=== PATIENT | male | born 1955 | race Caucasian/White ===

== ENCOUNTER 2022-01-13 14:34 | Inpatient (IN) | payer MEDICARE, SELFPAY ==
[2022-01-13] VITALS (28 sets, daily range): BP systolic 66–130; BP diastolic 49–99; PULSE 97–109; RESP 16–27; TEMP 36.4–37.2; O2SAT 93–96; BMI 27.3
--- NOTE | 2022-01-13 14:39 | XRR_ITS ---
PROCEDURE INFORMATION: Exam: XR Chest Exam date and time: 01/13/2022 2:39 PM Age: 66 years old Clinical indication: Cough and dyspnea; Additional info: Dyspnea/cough TECHNIQUE: Imaging protocol: XR of the chest. Views: 1 view. COMPARISON: CR Chest 2 views* [id number] 01/01/2019 3:10 PM FINDINGS: Tubes, catheters and devices: Endotracheal tube tip in place 2.8 cm above the josseline. Right central venous catheter tip over the right atrium. Enteric tube tip below the left diaphragm over the gastric bubble. Lungs: Left lower lobe infiltrate. Pleural spaces: Unremarkable. No pleural effusion. No pneumothorax. Heart/Mediastinum: Cardiomegaly. Bones/joints: Unremarkable. Other findings: Several metallic fragments again seen over the right thorax. XR/XR chest 1V portable [id number] IMPRESSION: 1. Endotracheal tube tip in place 2.8 cm above the josseline. 2. Right central venous catheter tip over the right atrium. 3. Enteric tube tip below the left diaphragm over the gastric bubble. 4. Left lower lobe infiltrate. 5. Cardiomegaly. 6. Several metallic fragments again seen over the right thorax.
--- NOTE | 2022-01-13 14:48 | ED_ITS ---
HPI - SOB/Dyspnea General: Chief Complaint: Shortness of Breath/Dyspnea Stated Complaint: COUGH/ DIFFICULTY BREATHING Time Seen by Provider: 01/13/22 14:35 Source: patient Mode of arrival: EMS Limitations: no limitations History of Present Illness: HPI Narrative: 58-year-old male presents emergency room acutely short of breath. He arrives via EMS they report his oxygen sats were 70% on room air at home. He states he woke up yesterday feeling short breath got progressively worse until this afternoon got so severe his family called EMS. He denies any chest pain he denies any productive cough. Cough and getting progressive progressively worse he is diaphoretic on arrival here and tachypneic. He has had some myalgias. No history of DVT or PE. No history of coronary artery disease. MD elicited complaint: shortness of breath and cough Pertinent past history: COPD Onset (ago): day(s) (2) Timing: constant Severity: severe Exacerbating factors: exertion, coughing and talking Relieving factors: oxygen and rest Known history of: COPD Associated symptoms: Reports chest congestion and cough; Deny abdominal pain, chest pain, diaphoresis, dizziness, extremity pain, fever(s), hemoptysis, lightheadedness, myalgias, nausea, orthopnea, palpitations, paresthesias, polydipsia, polyuria, rash, sense of impending doom, syncope or vomiting Treatment prior to arrival: oxygen and bronchodilator Review of Systems Const: Denies: fever(s) or diaphoresis ENMT: Denies: throat pain, ear or mastoid pain, nasal discharge or nasal congestion Card: Denies: chest pain, palpitations, lightheadedness, syncope or orthopnea Resp: Reports: chest congestion; Denies: hemoptysis GI: Denies: abdominal pain, nausea or vomiting : Denies: flank pain, dysuria, urinary frequency or urinary urgency Musc: Denies: extremity pain Skin/Breast: Denies: rash or pruritus Neuro: Denies: dizziness Endo: Denies: polyuria or polydipsia PFS ED PFSH: Medical History (Updated 01/18/22 @ 10:38 by Tushar Guillaume DO) Chronic kidney disease COPD (chronic obstructive pulmonary disease) Social History (Updated 01/18/22 @ 10:33 by Tushar Guillaume DO) Smoking and tobacco status: current every day smoker Alcohol intake: unknown Physical Exam Const: COMMON NORMALS: no acute distress GENERAL APPEARANCE: cooperative and comfortable ORIENTATION/CONSCIOUSNESS: Yes awake, Yes oriented to person, Yes oriented to place and Yes oriented to time HENMT: COMMON NORMALS: normocephalic, atraumatic and hearing grossly normal bilaterally HEAD & SCALP: normocephalic and atraumatic Neck/C-Spine: COMMON NORMALS: no JVD Resp: EFFORT & INSPECTION: Yes able to speak in complete sentences, Yes tachypneic, Yes respiratory distress, Yes labored and Yes uses accessory muscles AUSCULTATION: rales and rhonchi Cardio: COMMON NORMALS: no JVD, regular rhythm and No murmurs present (Cardio) RATE: tachycardic RHYTHM: regular rhythm GI: COMMON NORMALS: Soft to palpation and No hepatosplenomegaly present AUSCULTATION: Yes normoactive bowel sounds PALPATION: Yes Soft to palpation, No Tenderness to palpation present (GI), No Guarding due to palpation present (GI) and Yes No hepatosplenomegaly present Extremity: COMMON NORMALS: no calf tenderness and no pedal edema Neuro: SENSORIUM/ORIENTATION: Yes oriented to person, Yes oriented to place and Yes oriented to time Skin: COMMON NORMALS: no rashes or lesions noted GENERAL SKIN EXAM: no rashes or lesions noted Procedures Intubation Time out performed: Yes sedative: Etomidate paralytic: Succinylcholine Laryngoscope: fiber optic video scope Assist Device Used: fiber optic device ET Tube Size: 8.5 ET Tube Uncuffed: No Tube Secured Depth (cm): 22 Tube Secured Location: teeth Tube Placement Confirmation: visualized tube passing through cords, equal breath sounds bilaterally, no breath sounds over epigastrium and confirmation by capnometry Patient Tolerated Procedure: well Intubation Complications: none Course Vital Signs: Vital signs: Vital Signs Temperature 98.8 F 01/18/22 07:00 Pulse Rate 79 01/18/22 09:00 Respiratory Rate 18 01/18/22 09:30 Blood Pressure 99/64 01/18/22 09:00 Pulse Oximetry 96 01/18/22 09:30 MDM - SOB/Dyspnea Medical Decision Making Additional procedure: Nursing staff attempted to place OG tube and encountered difficulty. On chest x-ray it appears to have passed into the trachea. This was confirmed by fiberoptic laryngoscopy the tube was removed and then placed in the esophagus with the assistance of the laryngoscope without difficulty confirmed on x-ray Acute on chronic respiratory failure with acute on chronic kidney disease. Flores ent appears to have pneumonia started on empiric antibiotics. IV access difficult. Patient is being admitted have discussed with Dr. Florence he will place a central line himself. See his notes. Medical Records I reviewed the patient's medical records. Lab Data I reviewed the patient's lab results. : 01/18/22 04:17 01/18/22 04:17 Labs/Radiology: Radiology Impressions Abdomen X-Ray 01/14/22 08:23 IMPRESSION: Moderate colon distention with stool and gas. No small bowel distention. Venous Duplex 01/15/22 07:55 IMPRESSION: No evidence of deep vein thrombosis. Chest X-Ray 01/17/22 09:38 IMPRESSION: 1. Termination of feeding tube in the proximal stomach. Endotracheal tube terminates 2.0 cm above the josseline. Termination of central venous catheter in the right atrium. 2. Hypoinflation with asymmetric airspace disease and pleural effusions. Laboratory Results WBC 27.2 10^3/uL (4.0-10.0) H 01/13/22 14:39 RBC 4.87 10^6/uL (4.1-5.3) 01/13/22 14:39 Hgb 13.8 g/dL (11.7-16.6) 01/13/22 14:39 Hct 44.3 % (42.0-52.0) 01/13/22 14:39 MCV 91.0 fl (80-94) 01/13/22 14:39 MCH 28.3 pg (28.0-34.0) 01/13/22 14:39 MCHC 31.2 g/dL (30.0-36.0) 01/13/22 14:39 RDW 14.7 % (12.1-15.1) 01/13/22 14:39 Plt Count 417 10^3/cmm (130-400) H 01/13/22 14:39 MPV 9.4 fL (7.4-10.4) 01/13/22 14:39 Lymph % (Auto) Not Reportable 01/13/22 14:39 [place] % (Auto) Not Reportable 01/13/22 14:39 Lymph # (Auto) Not Reportable 01/13/22 14:39 [place] # (Auto) Not Reportable 01/13/22 14:39 Total Counted 100 (0-100) 01/13/22 14:39 Atypical Lymphs % 1.0 % (0-5) 01/13/22 14:39 Absolute Neutrophils 15.0 10^3/cmm (1.4-6.5) H 01/13/22 14:39 Segmented Neutrophils 27 % 01/13/22 14:39 Abs Segm Neuts (Man) 7.3 10/cmm (1.6-7.1) H 01/13/22 14:39 Band Neutrophils 28.0 % 01/13/22 14:39 Abs Band Neuts (Man) 7.6 10^3/cmm (0.0-1.2) H 01/13/22 14:39 Absolute Lymphocytes 1.4 10^3/cmm (1.2-3.4) 01/13/22 14:39 Lymphocytes (Manual) 4 % 01/13/22 14:39 Monocytes (Manual) 3.0 % 01/13/22 14:39 Absolute Monocytes 0.8 10^3/cmm (0.1-0.6) H 01/13/22 14:39 Eosinophils (Manual) 0 % 01/13/22 14:39 Absolute Eosinophils 0.0 10^3/cmm (0.0-0.7) 01/13/22 14:39 Basophils (Manual) 0.0 % 01/13/22 14:39 Absolute Basophils 0.0 10^3/cmm (0.0-0.2) 01/13/22 14:39 Metamyelocytes 37.0 % 01/13/22 14:39 Platelet Estimate Normal (Normal) 01/13/22 14:39 D-Dimer 1.06 ug/mIFEU (0-0.59) H 01/13/22 14:39 Specimen Type Arterial 01/13/22 14:43 Sample Site Radial, right 01/13/22 14:43 ABG pH 7.26 (7.35-7.45) L 01/13/22 14:43 ABG pCO2 51.1 mmHg (35-45) H 01/13/22 14:43 ABG pO2 76.4 mmHg (80.0-100.0) L 01/13/22 14:43 ABG HCO3 22.7 mmol/L (22-26) 01/13/22 14:43 ABG O2 Saturation 94.9 01/13/22 14:43 ABG Base Excess -4.8 mmol/L (-2.0-2.0) L 01/13/22 14:43 Kayden Test Pos 01/13/22 14:43 A-a O2 Gradient 1.3 mmHg (5-10) L 01/13/22 14:43 Hematocrit 43.3 % (42-52) 01/13/22 14:43 Hgb O2 Saturation 92.3 % (95-100) L 01/13/22 14:43 Carboxyhemoglobin 1.9 %THgb (0.4-20.1) 01/13/22 14:43 Methemoglobin 0.8 % (0.4-1.5) 01/13/22 14:43 Total Hemoglobin 14.1 g/dL (14-18) 01/13/22 14:43 Sodium 135.0 mmol/L (131-143) 01/13/22 14:43 Potassium 4.7 mmol/L (3.5-5.0) 01/13/22 14:43 Glucose 149.0 mg/dL (70-115) H 01/13/22 14:43 Ionized Calcium 1.1 mmol/L (1.1-1.4) 01/13/22 14:43 O2 Delivery Device Nrb 01/13/22 14:43 O2 Liters/Min 15.0 % 01/13/22 14:43 Junior Technical Writer ID Amh 01/13/22 14:43 Sodium 134 mmol/L (136-145) L 01/13/22 14:39 Potassium 4.6 mmol/L (3.5-5.1) 01/13/22 14:39 Chloride 95 mmol/L (98-107) L 01/13/22 14:39 Carbon Dioxide 22 mmol/L (22-29) 01/13/22 14:39 Anion Gap 21.6 (5-19) H 01/13/22 14:39 BUN 37 mg/dL (8-23) H 01/13/22 14:39 Creatinine 3.5 mg/dL (0.7-1.2) H 01/13/22 14:39 GFR Calculation 17.5 mL/min (90-130) L 01/13/22 14:39 Glucose 158 mg/dL (65-115) H 01/13/22 14:39 Calculated Osmolality 290 mOsm/kg (285-295) 01/13/22 14:39 Lactic Acid 3.8 mmol/L (0.5-2.2) H 01/13/22 14:39 Calcium 8.7 mg/dL (8.5-10.5) 01/13/22 14:39 Total Bilirubin 0.9 mg/dL (0.15-1.2) 01/13/22 14:39 AST 14 U/L (0-40) 01/13/22 14:39 ALT 20 U/L (0-41) 01/13/22 14:39 Alkaline Phosphatase 64 IU/L (40-130) 01/13/22 14:39 Creatine Kinase 41 U/L (39-308) 01/13/22 14:39 Troponin T Baseline 19 ng/L (0-15) H 01/13/22 14:39 C-Reactive Protein 3.0 mg/L (0.0-4.9) 01/13/22 14:39 NT-Pro-B Natriuret Pep 3037 pg/mL (0-125) H 01/13/22 14:39 Total Protein 7.3 g/dL (6.6-8.7) 01/13/22 14:39 Albumin 3.7 g/dL (3.5-5.2) 01/13/22 14:39 Globulin 3.6 g/dL (1.3-4.6) 01/13/22 14:39 Procalcitonin 39.25 ng/mL (0-0.5) H 01/13/22 14:39 Coronavirus 229E (PCR) Not detected (NOT DETECT) 01/13/22 15:05 SARS-CoV-2 (PCR) Not detected (NOT DETECT) 01/13/22 15:05 Critical Care Time Critical Care Time: Critical Care Time: Yes Total Critical Care Time: 45 Attestation: The high probability of a clinically significant, sudden or life threatening deterioration of the patient's respiratory system(s) required my full and direct attention, intervention and personal management. The critical care time is as shown. This time is in addition to time spent performing any reported procedures but includes the following: [x] Data and vital sign review and interpretation [x] Patient assessment, examination and intervention [x] Documentation [x] Medication orders and management Discharge Plan Discharge Patient Disposition: Admitted As Inpatient Admit Provider: Danielito Florence Clinical Impression: Pneumonia, Respiratory failure with hypoxia, Acute kidney injury superimposed on CKD, Sepsis Condition: Stable Coding Level of Care Code ED Contract Admin for Sarah Davidson
[2022-01-13 14:54] LABS: ABG PCO2 51.1 mmHg (35-45); ABG PH Result 7.26 (7.35-7.45); Alveolar-Arterial Oxygen Gradi 1.3 mmHg (5-10); Arterial Blood Gas Hematocrit 43.3 % (42-52); Base Excess ABG -4.8 mmol/L (-2.0-2.0); Blood Gas Allen Test Pos; Blood Gas Operator Identificat AMH; Blood Gas Sample Site Radial, right; Blood Gas Sample Type Arterial; Carboxyhemoglobin 1.9 %THgb (0.4-20.1); HCO3 ABG 22.7 mmol/L (22-26); HGB O2 Sat 92.3 % (95-100); Ionized Calcium Level - ABG 1.1 mmol/L (1.1-1.4); Methemoglobin 0.8 % (0.4-1.5); Oxygen Device NRB; Oxygen Saturation ABG 94.9; PO2 ABG 76.4 mmHg (80.0-100.0); Potassium Level - ABG 4.7 mmol/L (3.5-5.0); Total Hemoglobin 14.1 g/dL (14-18)
[2022-01-13 14:55] LABS: Hematocrit 44.3 % (42.0-52.0); Hemoglobin 13.8 g/dL (11.7-16.6); Mean Corpuscular HGB Conc 31.2 g/dL (30.0-36.0); Mean Corpuscular Hemoglobin 28.3 pg (28.0-34.0); Mean Platelet Volume 9.4 fL (7.4-10.4); Platelet Count 417 10^3/cmm (130-400); Red Blood Count 4.87 10^6/uL (4.1-5.3); Red Cell Distribution Width 14.7 % (12.1-15.1); White Blood Count 27.2 10^3/uL (4.0-10.0)
[2022-01-13] MEDS: succinylcholine 20 mg/mL SDV 10mL 120 MG IVP (15:15)
[2022-01-13 15:16] LABS: D Dimer 1.06 ug/mIFEU (0-0.59)
[2022-01-13 15:20] LABS: Lactic Sepsis W/Reflex 3.8 mmol/L (0.5-2.2)
[2022-01-13] MEDS: propofol 1,000 MG/100 ML INJ 19.6 MG IV (15:20)
[2022-01-13 15:22] LABS: Troponin(5th) Baseline 19 ng/L (0-15)
[2022-01-13 15:32] LABS: NT Pro B Type Natriuretic Pept 3037 pg/mL (0-125); Procalcitonin 39.25 ng/mL (0-0.5)
[2022-01-13 15:43] LABS: Alanine Aminotransferase 20 U/L (0-41); Albumin Level 3.7 g/dL (3.5-5.2); Alkaline Phosphatase 64 IU/L (40-130); Anion Gap 21.6 (5-19); Aspartate Amino Transferase 14 U/L (0-40); Blood Urea Nitrogen 37 mg/dL (8-23); Calcium 8.7 mg/dL (8.5-10.5); Carbon Dioxide 22 mmol/L (22-29); Chloride 95 mmol/L (98-107); Creatine Phosphokinase 41 U/L (39-308); Globulin 3.6 g/dL (1.3-4.6); Glomerular Filtration Rate 17.5 mL/min (90-130); Glucose 158 mg/dL (65-115); Osmolality Calculated 290 mOsm/kg (285-295); Potassium 4.6 mmol/L (3.5-5.1); Sodium 134 mmol/L (136-145); Total Bilirubin 0.9 mg/dL (0.15-1.2); Total Protein 7.3 g/dL (6.6-8.7)
[2022-01-13] MEDS: vecuronium 10 mg SDV IVP (15:50)
--- NOTE | 2022-01-13 15:58 | PC.PHAR ---
PT UNABLE TO VERIFY MEDICATIONS DUE TO BEING INTUBATED-PTS RYLIE VINSON STATES THE PT TAKES NO RX MEDICATIONS STATES SHE SOMETIMES GIVES THE PT SOME OF HER [place] 7.5/325MG TABLETS-STATES SHE GAVE HIM ONE TAB THIS AM-
[2022-01-13 16:01] LABS: Slide Review Slide Review Perform
[2022-01-13 16:02] LABS: Absolute Segmented Neutrophil 7.3 10/cmm (1.6-7.1); Band Neutrophils Absolute 7.6 10^3/cmm (0.0-1.2); Eosinophils 0 %; Lymphocytes 4 %; Lymphocytes Absolute 1.4 10^3/cmm (1.2-3.4); Monocytes Absolute 0.8 10^3/cmm (0.1-0.6); Segmented Neutrophils 27 %; Total Cells Counted 100 (0-100)
[2022-01-13 16:03] LABS: Platelet Estimate Normal (Normal)
[2022-01-13 16:34] LABS: Reflex Lactate Order REFLEX LACTIC ORDERD
--- NOTE | 2022-01-13 16:40 | ECG_ITS ---
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 Measurements Intervals [place] Rate: 100 P: 19 DE: 144 QRS: 34 QRSD: 93 T: 33 QT: 345 QTc: 446 Interpretive Statements SINUS TACHYCARDIA LOW QRS VOLTAGE IN PRECORDIAL LEADS [QRS DEFLECTION < 1.0 mV IN CHEST LEADS] POSSIBLE RIGHT VENTRICULAR CONDUCTION DELAY [RSR (QR) IN V1/V2] Compared to ECG 12/16/2018 12:02:34 Sinus rhythm no longer present T-wave abnormality no longer present Electronically Signed On 01-13-2022 18:50:46 CDT by Sheldon Mir M.D. [id number]
--- NOTE | 2022-01-13 16:57 | PC.NURSE ---
REMAINING SUCCINYLCHOLINE WASTED, 4 ML, 80 MG.
--- NOTE | 2022-01-13 17:03 | USCV_ITS ---
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 Age: 66 Gender: M : 1955 Exam Date: 01/13/2022 17:29 Ordering Phys: Danielito Florence MD Technologist: Paulette Matute Exam Location: [facility] [place] Indication: SOB BP: 93 / 69 HR: 95 Rhythm: Sinus Technical Quality: Very technically difficult study MEASUREMENTS (Male / Female) Normal Values 2D ECHO LV Diastolic Diameter PLAX 3.1 cm 4.2 - 5.9 / 3.9 - 5.3 cm LV Systolic Diameter PLAX 1.8 cm IVS Diastolic Thickness 1.4 cm 0.6 - 1.0 / 0.6 - 0.9 cm IVS Systolic Thickness 2.0 cm LVPW Diastolic Thickness 1.4 cm 0.6 - 1.0 / 0.6 - 0.9 cm LVPW Systolic Thickness 1.8 cm LVOT Diameter 2.0 cm LV Ejection Fraction 2D Teich 73.2 % LV Ejection Fraction MOD 2C 63.5 % LV Ejection Fraction 2C AL 64.7 % LA Diameter 2.9 cm LA Width 3.9 cm LA Height 4.2 cm RA Width 4.1 cm RA Height 4.1 cm Aorta at Sinotubular Diameter 2.8 cm M-MODE Aortic Annulus Diameter 3.5 cm LA Ao Ratio MM 0.7 MV E Point Septal Separation 0.6 cm DOPPLER AV Peak Velocity 119.0 cm/s LVOT Peak Velocity 80.0 cm/s AV Area Cont Eq vti 2.1 cm squared AV Area Cont Eq pk 2.2 cm squared MV Area PHT 4.5 cm squared Mitral E to A Ratio 0.8 MV E' Velocity 47.0 cm/s TV Peak E Velocity 47.0 cm/s Right Atrial Pressure 15.0 mmHg PV Peak Velocity 92.0 cm/s RV Acceleration Time 0.1 s RV Ejection Time 0.2 s RV AcT/ET 0.3 FINDINGS Left Ventricle Normal left ventricular size and systolic function, EF 64 %. No regional wall motion abnormalities. Right Ventricle Normal right ventricular size and systolic function. Right Atrium Normal right atrial size. Left Atrium Mildly increased left atrial size. Mitral Valve No gross abnormalities noted Aortic Valve No gross abnormalities noted Tricuspid Valve No gross abnormalities noted.mild tricuspid valve regurgitation. Pulmonic Valve No gross abnormalities noted Pericardium No significant pericardial effusion Aorta Normal aortic annulus size. CONCLUSIONS 1. Normal left ventricular size and systolic function, EF 64 %. 2.Mildly increased left atrial size. 3. Mild tricuspid valve regurgitation. 4. There is no pericardial effusion. 5 There are no intracardiac masses. No similar previous studies are available for comparison Dr Fredrick Murphy MD [facility] (Electronically Signed) Final Date: 13 January 2022 22:35 S
--- NOTE | 2022-01-13 17:04 | P.HP_ITS ---
Providers/Chief Complaint Admitting Physician: Danielito Florence MD Primary Care Provider: Joe Levy DO Chief Complaint: COUGH/ DIFFICULTY BREATHING History of Present Illness 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 is a 66 year old male with no significant PMH came in c/o worsening SOB for the last 7 days, as well has experinced one episode of fever yesterday,he was also experiencing recurrent vomiting for the last 2 days and was not able to keep anything down. History was provided by the girlfriend as the patient was intubated sedated and on mechanical ventilation when I examined the patient in the ER.As per the GF he was doing fine prior to that,has not been on any home medications for long time. When EMS arrived at the scene he was saturating in 70s on r/a.Patient was intubated in the ER. Upon arrival in the ER he was worked up for above mention complain. Pertinent Imaging Studies. Xray chest : Left lower lobe infiltrate. Pertinent Labs: WBC : 27.2 , H&H : 13.8/44.3 PLT : 417 , Serum Na: 134, k: 4.6 , BUN /SCR : 37/3.5 , Lactic acid:3.8 Procalcitonin : 39.25, Pro Bnp: 3037 , Troponin: 19, 21 ,19 ABG : Ph: 7.26 pco2: 51, po2: 76 , fio2:100% Review of Systems General: Reports: ROS unobtainable due to endotracheal tube Medications/Allergies Home Medications Medication Instructions Recorded Confirmed Last Taken Type hydrocodone 7.5 mg-acetaminophen 1 tab PO PRN PRN 01/13/22 01/13/22 01/13/22 08:00 History 325 mg tablet NOT PTS RX SEE PHARM Allergies Allergy/AdvReac Type Severity Reaction Status Date / Time Unable to Assess Allergy Verified 01/13/22 15:54 Vitals/I&O/Wt Last Vital Signs Temp 97.6 F 01/13/22 14:37 Pulse 97 01/13/22 14:37 Resp 16 01/13/22 15:58 BP 130/99 01/13/22 14:37 Pulse Ox 95 01/13/22 14:37 01/13/22 01/13/22 01/13/22 06:59 14:59 22:59 Intake Total 5.145 / 5.145 Balance 5.145 / 5.145 Weight last 48 hrs Weight 81.647 kg Physical Exam Narrative: Is intubated sedated HENMT: COMMON NORMALS: normocephalic and atraumatic HEAD & SCALP: normocephalic and atraumatic Chest: COMMONS NORMALS: normal inspection of the chest and normal palpation of entire chest wall CHEST: Yes Symmetrical chest wall rise Resp: COMMON NORMALS: normal respiratory effort, No retractions, No use of accessory muscles and clear to auscultation bilaterally EFFORT & INSPECTION: Yes symmetric chest movement OTHER: Coarse Breath sounds B/L Cardio: COMMON NORMALS: regular rate, regular rhythm, S1 normal heart sound present, S2 normal heart sound present, No gallops present (Cardio), No murmurs present (Cardio), No rub (Cardio) and Peripheral pulses 2+ throughout RATE: regular rate RHYTHM: regular rhythm HEART SOUNDS: S1 normal heart sound present and S2 normal heart sound present PERIPHERAL PULSES: Peripheral pulses 2+ throughout GI: COMMON NORMALS: Normal to inspection, nondistended, normoactive bowel sounds present, Soft to palpation, non-tender, No hepatosplenomegaly present and no masses AUSCULTATION: Yes normoactive bowel sounds PALPATION: Yes Soft to palpation and Yes No hepatosplenomegaly present RECTAL EXAM: Yes deferred Extremity: COMMON NORMALS: no clubbing, cyanosis or edema and no pedal edema Neuro: COMMON NORMALS: patient oriented x3 Data : 01/13/22 14:39 01/13/22 14:39 A&P Assessment and plan (1) Pneumonia: Status: Acute (2) Respiratory failure with hypoxia and hypercapnia: Status: Acute (3) Acute kidney injury superimposed on CKD: Status: Acute (4) Sepsis: Status: Acute Plan 66 year old male with no significant PMH came in c/o worsening SOB for the last 7 days, as well has experinced one episode of fever yesterday,he was also experiencing recurrent vomiting for the last 2 days #Sepsis 2/2 PNA: Patient came in with sob, fever, cough, xary chest has infiltrates, aspiration PNA is a concern, given recurrent vomiting for the last 2days.He is hypotensive. Current plan is institute sepsis bundle. Follow Blood culture Sputum Gram stain and culture Urine Culture Monitor Xray chest Monitor ABG 2D Echo : Follow repeat lactic acid Follow Repeat Procalcitonin MRSA PCR Continue Vancomycin and zosyn for now Ac Hypoxic and Hypercapnic R/F : 2/2 PNA Continue Mechanical Ventilation DUO NEBS Plan as above JUANITA v/s JUANITA ON CKD : Admission SCR : 3.5 Baseline SCR Unknown Follow Urine Random Na and CR Renal U/S Monitor BMP Continue I.V Hydration with Ns @ 125 cc/hr Monitor Intake and output Renal Consult # Code Status :FullCode #DVT PPX: On Heparin Attestations Medical Necessity Statement*: Patient needs to be in hospital for the management of sepsis.Anticipated LOS Greater then 2 midnights. Time Spent in Patient Care: Greater than 35 minutes (>than 50% of time spent in counselling and/or direct pt care on unit) . Critical Care Time: 90 Other Attestations: The high probability of a clinically significant, sudden or life threatening deterioration of the patient's [] system(s) required my full and direct attention, intervention and personal management. The critical care time is as shown. This time is in addition to time spent performing any reported procedures but includes the following: [x] Data and vital sign review and interpretation [x] Patient assessment, examination and intervention [x] Documentation [x] Medication orders and management Coding Level of Care Code Acute Math Professor for [facility] Fwd Exam Detailed Diagnoses Pneumonia J18.9 Respiratory failure with hypoxia and hypercapnia J96.91; J96.92 Acute kidney injury superimposed on CKD N17.9; N18.9 Sepsis A41.9
[2022-01-13 17:11] LABS: Lactic Acid level (Lactate) 3.4 mmol/L (0.5-2.2)
[2022-01-13] MEDS: FUROsemide 10 mg/mL SDV 4mL 40 MG IVP (17:13)
[2022-01-13] MEDS: piperacillin-tazobactam 3.375 GM in sodium chloride 0.9% (plus) 50 ML IV ×2 (17:21→23:51)
[2022-01-13 17:22] LABS: ABG PCO2 47.9 mmHg (35-45); ABG PH Result 7.29 (7.35-7.45); Alveolar-Arterial Oxygen Gradi 73.4 mmHg (5-10); Arterial Blood Gas Hematocrit 42.4 % (42-52); Base Excess ABG -3.9 mmol/L (-2.0-2.0); Blood Gas Operator Identificat AMH; Blood Gas Sample Site Brachial, right; Blood Gas Sample Type Arterial; Carboxyhemoglobin 1.3 %THgb (0.4-20.1); HGB O2 Sat 94.2 % (95-100); Ionized Calcium Level - ABG 1.1 mmol/L (1.1-1.4); Methemoglobin 0.9 % (0.4-1.5); Oxygen Device VENT; Oxygen Saturation ABG 96.3; PO2 ABG 84.9 mmHg (80.0-100.0); Potassium Level - ABG 5.1 mmol/L (3.5-5.0); Total Hemoglobin 13.8 g/dL (14-18)
[2022-01-13 17:37] LABS: Troponin 5 2HR 21.55 ng/L (0-15)
[2022-01-13 17:38] LABS: Troponin 5 2HR Delta 2.55 ABS# (0-10)
[2022-01-13 17:44] LABS: Add Urine Microscopic? YES; Bilirubin Urine 1+ (Negative); Blood Urine Trace (Negative); Glucose Urine UA Norm (Normal); Ketones Urine Negative (Negative); Leukocyte Esterase Urine Negative (Negative); Nitrate Urine Negative (Negative); Protein Urine Neg (Negative); Specific Gravity, Urine 1.025 (1.005-1.030); Urine Appearance Cloudy (CLEAR); Urine Color Dark Yellow (Yellow); Urobilinogen Urine 1 mg/dL (Negative); pH Urine 5 (5-7)
[2022-01-13 17:45] LABS: Amorphous Sediment Urine 1+ /hpf; Bacteria Urine 1+ /hpf; RBC Urine 0-4 /hpf (0-2); Squamous Epithelial Cell Urine 0-4 /hpf (0-5); WBC Urine 0-4 /hpf (0-5)
--- NOTE | 2022-01-13 17:57 | PC.NURSE ---
FOR VITAL SIGNS, PLEASE SEE SCANNED DOCUMENTS.
--- NOTE | 2022-01-13 18:40 | USCV_ITS ---
LE Venous Duplex BILATERAL 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 Age: 66 Gender: M : 1955 Exam Date: 01/13/2022 19:38 Ordering Phys: Danielito Florence MD Technologist: Rodo Aslton [place]am Location[place] [facility] [place] Indication: r/o dvt HISTORY: r/o dvt PROCEDURES: The venous duplex Doppler examination of both lower extremities was performed in the standard fashion. The following venous structures were evaluated: common femoral vein, profunda vein, proximal portion of the greater saphenous vein, superficial femoral vein, and the popliteal vein. In addition, the posterior tibial and peroneal trunk were evaluated. Serial compression, augmentation maneuvers, and spectral Doppler flow evaluation were performed. FINDINGS: Normal 2-D Doppler and augmentation and compressibility throughout the lower extremity venous structures. Additional imaging through the proximal calf veins also reveals no thrombus. Limited evaluation of the greater saphenous vein is patent with no thrombus.. CONCLUSIONS No evidence of DVT in the above-mentioned identifiable veins. Dr Fredrick Murphy MD [facility] (Electronically Signed) Final Date: 15 January 2022 10:12 S
[2022-01-13 18:51] LABS: Adenovirus Not Detected (NOT DETECT); Chlamydia Pneumoniae Not Detected (NOT DETECT); Coronavirus 229E,HKU1,NL63,OC4 Not Detected (NOT DETECT); Human Metapneumovirus Not Detected (NOT DETECT); Human Rhinovirus/Enterovirus Not Detected (NOT DETECT); Influenza A Not Detected (NOT DETECT); Influenza A H1 Not Detected (NOT DETECT); Influenza A H1-2009 Not Detected (NOT DETECT); Influenza A H3 Not Detected (NOT DETECT); Influenza B Not Detected (NOT DETECT); Mycoplasma Pneumoniae Not Detected (NOT DETECT); Parainfluenza Virus Type 1 Not Detected (NOT DETECT); Parainfluenza Virus Type 2 Not Detected (NOT DETECT); Parainfluenza Virus Type 3 Not Detected (NOT DETECT); Parainfluenza Virus Type 4 Not Detected (NOT DETECT); Respiratory Syncytial Virus A Not Detected (NOT DETECT); Respiratory Syncytial Virus B Not Detected (NOT DETECT); SARS-COV-2 Not Detected (NOT DETECT)
[2022-01-13] MEDS: sodium chloride 0.9% 2,449.41 ML 2449.41 ML IV (19:51)
[2022-01-13] MEDS: sodium chloride 0.9% 1,000 ML 100 ML IV (19:52)
[2022-01-13] MEDS: vancomycin 1,000 MG in sodium chloride 0.9% 250 ML 250 MG IV (19:52)
[2022-01-13] MEDS: heparin 5,000 unit/mL INJ 1 mL 5000 UNIT SUBCUT (19:52)
--- NOTE | 2022-01-13 20:40 | ECG_ITS ---
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 Measurements Intervals [place] Rate: 104 P: 49 TX: 120 QRS: 21 QRSD: 88 T: 30 QT: 350 QTc: 462 Interpretive Statements SINUS TACHYCARDIA LOW QRS VOLTAGE [QRS DEFLECTION < 0.5/1.0 mV IN LIMB/CHEST LEADS] POSSIBLE RIGHT VENTRICULAR CONDUCTION DELAY [RSR (QR) IN V1/V2] Compared to ECG 01/13/2022 16:49:46 No significant changes Electronically Signed On 01-13-2022 23:05:41 CDT by Sheldon Mir M.D. [id number]
[2022-01-13 21:34] LABS: Troponin 5 6HR 19.73 ng/L (0-15); Troponin 5 6HR Delta 0.73 ng/L (0-12)
--- NOTE | 2022-01-13 22:04 | PM.ACPR ---
Acute Procedures Central Line Placement: Right IJ: Time out performed: Yes Patient placed on monitor/pulse ox: Yes MD prep: mask, gown and gloves Central line prep: Chlorhexidine scrub and sterile drapes applied Local anesthesia used: lidocaine 1% Amount of anesthesia used (ml): 10 Ultrasound used for placement: Yes Central line lumen inserted: triple Post procedure: sutured in place, good blood return, all ports aspirated, flushed, capped and sterile dressing applied Post procedure x-ray: tip of catheter in good position and no pneumothorax seen Patient tolerated procedure: well Complications: none
[2022-01-14] VITALS (84 sets, daily range): BP systolic 83–106; BP diastolic 52–75; PULSE 104–121; RESP 16–18; TEMP 37.7–37.9; O2SAT 91–96
[2022-01-14] MEDS: ipratropium-albuterol 3 mL Neb INHALATION ×6 (00:38→20:01)
[2022-01-14] MEDS: sodium chloride 0.9% 1,000 ML 125 ML IV ×3 (02:58→21:50)
[2022-01-14 04:48] LABS: Basophils % 0.1 %; Eosinophils % 0.1 %; Hematocrit 42.3 % (42.0-52.0); Hemoglobin 12.9 g/dL (11.7-16.6); Lymphocytes # 1.2 10^3/uL (0.8-4.8); Lymphocytes % 4.3 %; Mean Corpuscular HGB Conc 30.5 g/dL (30.0-36.0); Mean Corpuscular Hemoglobin 28.1 pg (28.0-34.0); Mean Corpuscular Volume 92.2 fl (80-94); Mean Platelet Volume 9.6 fL (7.4-10.4); Monocytes # 0.5 10^3/uL (0.2-0.9); Monocytes % 1.9 %; Neutrophils # 24.35 10^3/uL (1.8-7.7); Neutrophils % 91.1 %; Nucleated Red Blood Cells % 0 %; Platelet Count 353 10^3/cmm (130-400); Red Blood Count 4.59 10^6/uL (4.1-5.3); Red Cell Distribution Width 15.1 % (12.1-15.1); White Blood Count 26.7 10^3/uL (4.0-10.0)
[2022-01-14 04:53] LABS: Partial Thromboplastin Time 36.2 SECONDS (23.9-36.7)
[2022-01-14 04:54] LABS: ABG PCO2 56.5 mmHg (35-45); ABG PH Result 7.23 (7.35-7.45); Arterial Blood Gas Hematocrit 41.6 % (42-52); Base Excess ABG -4.4 mmol/L (-2.0-2.0); Blood Gas Allen Test Pos; Blood Gas Sample Site Radial, right; Blood Gas Sample Type Arterial; Carboxyhemoglobin 0.5 %THgb (0.4-20.1); HCO3 ABG 23.8 mmol/L (22-26); HGB O2 Sat 94.4 % (95-100); Ionized Calcium Level - ABG 1.1 mmol/L (1.1-1.4); Methemoglobin 1.1 % (0.4-1.5); Oxygen Saturation ABG 95.9; Total Hemoglobin 13.6 g/dL (14-18)
[2022-01-14 04:55] LABS: Alveolar-Arterial Oxygen Gradi 71.6 mmHg (5-10); Blood Gas Operator Identificat JB; Oxygen Device VENT
[2022-01-14 05:00] LABS: Lactate (Lactic Acid level) 2.3 mmol/L (0.5-2.2); Magnesium 1.5 mg/dL (1.7-2.3); Phosphorus 4.5 mg/dL (2.5-4.5)
[2022-01-14 05:02] LABS: Alanine Aminotransferase 16 U/L (0-41); Albumin Level 3.2 g/dL (3.5-5.2); Alkaline Phosphatase 61 IU/L (40-130); Anion Gap 16.2 (5-19); Aspartate Amino Transferase 14 U/L (0-40); Blood Urea Nitrogen 51 mg/dL (8-23); Calcium 7.7 mg/dL (8.5-10.5); Carbon Dioxide 23 mmol/L (22-29); Chloride 102 mmol/L (98-107); Globulin 3.9 g/dL (1.3-4.6); Glomerular Filtration Rate 25.8 mL/min (90-130); Glucose 124 mg/dL (65-115); Osmolality Calculated 299 mOsm/kg (285-295); Potassium 4.2 mmol/L (3.5-5.1); Sodium 137 mmol/L (136-145); Total Bilirubin 0.7 mg/dL (0.15-1.2); Total Protein 7.1 g/dL (6.6-8.7)
[2022-01-14 05:07] LABS: NT Pro B Type Natriuretic Pept 1420 pg/mL (0-125); Procalcitonin 24.94 ng/mL (0-0.5)
[2022-01-14 05:40] LABS: Slide Review Slide Review Perform
[2022-01-14] MEDS: piperacillin-tazobactam 3.375 GM in sodium chloride 0.9% (plus) 50 ML IV ×3 (06:34→23:52)
[2022-01-14] MEDS: heparin 5,000 unit/mL INJ 1 mL 5000 UNIT SUBCUT ×2 (06:34→17:40)
--- NOTE | 2022-01-14 08:23 | XR_ITS ---
WS: [id number] XR abdomen 1V* [id number] REASON FOR EXAM: Recurrent Vomiting FINDINGS: Nasogastric tube present with the tip in the body of the stomach. Large amount of gas and stool in the colon. Moderate colonic distention. No significant small bowel dilatation. No free air identified. No mass identified. No urinary tract calculi identified. XR/XR abdomen 1V* [id number] IMPRESSION: Moderate colon distention with stool and gas. No small bowel distention.
[2022-01-14] MEDS: sodium chloride 0.9% 1,000 ML 500 ML IV (08:50)
[2022-01-14] MEDS: norepinephrine 8 MG in dextrose 5 % 500 ML 38.1 MG IV (09:58)
--- NOTE | 2022-01-14 16:49 | P.PN_ITS ---
Subjective Subjective: Patient was seen and examined this morning, continues to be intubated sedated and on mechanical ventilation. Continue to be on Levophed. Noted T-max 100.2 Morning ABG: pH 7.23 , PCO2 56, PO2 90, FiO2: 100 % , PEEP of 8. Based on the morning ABG, appropriate ventilator settings has been done. Serum creatinine is improving, urine output is picking up. Medications: Medication Review Details: Generic Name Dose Route Start Last Admin Trade Name Jennifer PRN Reason Stop Dose Admin Albuterol/Ipratrop ium 3 ml 01/14/22 00:00 01/14/22 15:09 Ipratropium-Albu terol 3 Ml Neb INHALATION 3 ml Q4H.RESPIRATORY S CH Administration Heparin Sodium (Po rcine) 5,000 unit 01/13/22 18:00 01/14/22 06:34 Heparin 5,000 Un it/Ml Inj 1 Ml SUBCUT 5,000 unit Q12H KATARZYNA Administration Propofol 1,000 mg in 100 m ls @ 0 mls/hr 01/13/22 15:15 01/13/22 15:50 Diprivan IV 0 mcg/kg/min .Q0M KATARZYNA 0 mls/hr Titration Protocol Per Protocol Fentanyl 2,500 mcg / Sodium 250 mls @ 0 mls/h r 01/13/22 15:30 01/14/22 03:08 Chloride IV 100 mcg/hr .Q0M KATARZYNA 10 mls/hr Titration Protocol Per Protocol Midazolam HCl 100 mg/ Sodium 100 mls @ 0 mls/h r 01/13/22 15:30 01/14/22 03:08 Chloride IV 3 mg/hr .Q0M KATARZYNA 3 mls/hr Titration Protocol Per Protocol Sodium Chloride 1,000 mls @ 125 m ls/hr 01/13/22 17:00 01/14/22 13:36 Sodium Chloride 0.9% IV 125 mls/hr .Q8H KATARZYNA Administration Piperacillin Sod/T azobactam 50 mls @ 12.5 mls /hr 01/13/22 23:30 01/14/22 15:14 Sod 3.375 gm/ So dium Chloride IV 12.5 mls/hr Q8H KATARZYNA Administration Protocol Vancomycin HCl 1,0 00 mg/ 250 mls @ 250 mls /hr 01/13/22 20:30 01/13/22 20:55 Sodium Chloride IV Infused Q36H KATARZYNA Infusion Protocol Norepinephrine Bit artrate 8 mg 508 mls @ 0 mls/h r 01/14/22 09:30 01/14/22 09:58 / Dextrose IV 10 mcg/min .Q0M KATARZYNA 38.1 mls/hr Administration Protocol Per Protocol Vitals/I&O/Wt Last Vital Signs Temp 100.2 F H 01/14/22 08:00 Pulse 112 H 01/14/22 15:19 Resp 18 01/14/22 15:15 BP 106/70 01/14/22 12:00 Pulse Ox 92 01/14/22 15:15 01/14/22 01/14/22 01/14/22 06:59 14:59 22:59 Intake Total 1062.122 / 9665.509 0330.41 / 4753.41 Output Total 700 / 700 Balance 362.122 / 442.552 6756.41 / 4753.41 Weight last 48 hrs Weight 81.647 kg Physical Exam Narrative: Is intubated sedated Const: COMMON NORMALS: patient oriented x3 HENMT: COMMON NORMALS: normocephalic and atraumatic HEAD & SCALP: normocephalic and atraumatic Chest: COMMONS NORMALS: normal inspection of the chest and normal palpation of entire chest wall CHEST: Yes Symmetrical chest wall rise Resp: COMMON NORMALS: normal respiratory effort, No retractions, No use of accessory muscles and clear to auscultation bilaterally EFFORT & INSPECTION: Yes symmetric chest movement AUSCULTATION: clear to auscultation bilaterally OTHER: Coarse Breath sounds B/L Cardio: COMMON NORMALS: regular rate, regular rhythm, S1 normal heart sound present, S2 normal heart sound present, No gallops present (Cardio), No murmurs present (Cardio), No rub (Cardio) and Peripheral pulses 2+ throughout RATE: regular rate RHYTHM: regular rhythm HEART SOUNDS: S1 normal heart sound present and S2 normal heart sound present PERIPHERAL PULSES: Peripheral pulses 2+ throughout GI: COMMON NORMALS: Normal to inspection, nondistended, normoactive bowel sounds present, Soft to palpation, non-tender, No hepatosplenomegaly present and no masses AUSCULTATION: Yes normoactive bowel sounds PALPATION: Yes Soft to palpation and Yes No hepatosplenomegaly present RECTAL EXAM: Yes deferred Extremity: COMMON NORMALS: no clubbing, cyanosis or edema and no pedal edema Neuro: COMMON NORMALS: patient oriented x3 Urinary Catheter Management: Mcfadden: Cath Placed During This Visit: yes Reason for Continuing Indwelling Catheter: Accurate Measurement of Urinary Output in Critically Ill Patients Urinary Catheter Date of Insertion: 01/13/22 Urinary Catheter Time of Insertion: 14:30 Data : 01/14/22 04:10 01/14/22 04:10 Micro: Microbiology 01/14/22 04:50 MRSA Culture - Final Nose 01/13/22 16:11 Gram Stain - Final Sputum - Expectorated Sputum 01/13/22 21:05 Blood Culture - Preliminary Blood SPECIMEN COLLECTED 01/13/22 16:48 Blood Culture - Preliminary Blood SPECIMEN COLLECTED A&P Assessment and plan (1) Pneumonia: Status: Acute (2) Respiratory failure with hypoxia and hypercapnia: Status: Acute (3) Acute kidney injury superimposed on CKD: Status: Acute (4) Sepsis: Status: Acute Plan 66 year old male with no significant PMH came in c/o worsening SOB for the last 7 days, as well has experienced one episode of fever yesterday,he was also experiencing recurrent vomiting for the last 2 days #Septic shock 2/2 PNA: Patient came in with sob, fever, cough, xary chest has infiltrates, aspiration PNA is a concern, given recurrent vomiting for the last 2days.He is hypotensive. Current plan is institute sepsis bundle. Follow Blood culture : Sputum Gram stain and culture: Rare Gram-positive cocci in pairs Urine Culture Monitor Xray chest Monitor ABG 2D Echo : Normal LV size and systolic function with EF of 64%, mildly increased LV size , mild TR. Follow up repeat lactic acid : 2.3 Follow Repeat Procalcitonin: MRSA PCR : Negative Continue Vancomycin and zosyn for now Ac Hypoxic and Hypercapnic R/F : 2/2 PNA Continue Mechanical Ventilation DUO NEBS Plan as above JUANITA v/s JUANITA ON CKD : Likely prerenal JUANITA secondary to volume depletion, Admission SCR : 3.5 Baseline SCR Unknown Follow Urine Random Na and CR Renal U/S Monitor BMP Continue I.V Hydration with Ns @ 125 cc/hr Monitor Intake and output Possible renal Consult # Code Status :Full Code #DVT PPX: On Heparin Attestations Medical Necessity Statement*: Patient is still in hospital for management of septic shock,pna Time Spent in Patient Care: Greater than 35 minutes (>than 50% of time spent in counselling and/or direct pt care on unit) . Critical Care Time: 60 Other Attestations: The high probability of a clinically significant, sudden or life threatening deterioration of the patient's [] system(s) required my full and direct attention, intervention and personal management. The critical care time is as shown. This time is in addition to time spent performing any reported procedures but includes the following: [x] Data and vital sign review and interpretation [x] Patient assessment, examination and intervention [x] Documentation [x] Medication orders and management Coding Level of Care Code Acute Brand Ambassador Promotional Model for g Fwd Exam Detailed Diagnoses Pneumonia J18.9 Respiratory failure with hypoxia and hypercapnia J96.91; J96.92 Acute kidney injury superimposed on CKD N17.9; N18.9 Sepsis A41.9
[2022-01-14 18:52] LABS: Creatinine Urine, Random 96 mg/dL (39-259); Urine Random Sodium 86 mmol/L
[2022-01-15] VITALS (76 sets, daily range): BP systolic 91–118; BP diastolic 56–73; PULSE 96–109; RESP 18–20; TEMP 37.4–37.7; O2SAT 91–98
[2022-01-15] MEDS: norepinephrine 8 MG in dextrose 5 % 500 ML 38.1 MG IV (00:25)
[2022-01-15] MEDS: ipratropium-albuterol 3 mL Neb INHALATION ×7 (00:48→23:35)
[2022-01-15 04:24] LABS: ABG PCO2 44.2 mmHg (35-45); ABG PH Result 7.39 (7.35-7.45); Arterial Blood Gas Hematocrit 49.6 % (42-52); Base Excess ABG 1.4 mmol/L (-2.0-2.0); Blood Gas Allen Test Pos; Blood Gas Operator Identificat JB; Blood Gas Sample Site Radial, right; Blood Gas Sample Type Arterial; Carboxyhemoglobin 0.6 %THgb (0.4-20.1); HCO3 ABG 26.9 mmol/L (22-26); HGB O2 Sat 95.9 % (95-100); Ionized Calcium Level - ABG 1.1 mmol/L (1.1-1.4); Methemoglobin 0.8 % (0.4-1.5); Oxygen Device VENT; Oxygen Saturation ABG 97.2; Potassium Level - ABG 3.6 mmol/L (3.5-5.0); Total Hemoglobin 16.2 g/dL (14-18)
[2022-01-15 04:25] LABS: Alveolar-Arterial Oxygen Gradi 31.8 mmHg (5-10)
[2022-01-15 04:54] LABS: Basophils % 0.1 %; Eosinophils # 0.1 10^3/uL (0.0-0.8); Eosinophils % 0.4 %; Hematocrit 34.6 % (42.0-52.0); Lymphocytes # 1.2 10^3/uL (0.8-4.8); Lymphocytes % 4.3 %; Mean Corpuscular HGB Conc 31.8 g/dL (30.0-36.0); Mean Platelet Volume 9.8 fL (7.4-10.4); Monocytes # 0.9 10^3/uL (0.2-0.9); Monocytes % 3.2 %; Neutrophils # 25.29 10^3/uL (1.8-7.7); Neutrophils % 91.3 %; Nucleated Red Blood Cells % 0 %; Platelet Count 345 10^3/cmm (130-400); Red Blood Count 3.93 10^6/uL (4.1-5.3); Red Cell Distribution Width 15.2 % (12.1-15.1); White Blood Count 27.7 10^3/uL (4.0-10.0)
--- NOTE | 2022-01-15 05:00 | XRR_ITS ---
PROCEDURE INFORMATION: Exam: XR Chest Exam date and time: 01/15/2022 4:41 AM Age: 66 years old Clinical indication: Condition or disease; Lung condition and disease; Pneumonia; Additional info: Pna TECHNIQUE: Imaging protocol: XR of the chest. Views: 1 view. COMPARISON: CR XR chest 1V portable [id number] 01/13/2022 2:39 PM FINDINGS: Tubes, catheters and devices: Endotracheal tube is in satisfactory position. Feeding tube is in satisfactory position. Right IJ approach central line is in satisfactory position, with distal tip at the level of the SVC/RA junction. Lungs: There is redistribution and indistinctness of the pulmonary vasculature, in association with haziness of the lungs and small bilateral pleural effusions, which in the setting of cardiomegaly is consistent with pulmonary edema. Pneumonia should be excluded clinically. No pneumothorax. Pleural spaces: See Lungs finding. Heart/Mediastinum: Stable cardiomediastinal silhouette. Bones/joints: Degenerative changes of the spine and shoulder joints seen. Other findings: Small metallic fragments are again seen projecting over the right mid chest. XR/XR chest 1V portable [id number] IMPRESSION: Imaging findings of pulmonary edema with small bilateral pleural effusions. Pneumonia should be excluded clinically.
[2022-01-15 05:16] LABS: Alanine Aminotransferase 13 U/L (0-41); Albumin Level 2.6 g/dL (3.5-5.2); Anion Gap 14.9 (5-19); Aspartate Amino Transferase 21 U/L (0-40); Blood Urea Nitrogen 34 mg/dL (8-23); Calcium 7.8 mg/dL (8.5-10.5); Carbon Dioxide 24 mmol/L (22-29); Chloride 104 mmol/L (98-107); Creatinine Clr Calc Pharmacy 61.4157; Glomerular Filtration Rate 60.2 mL/min (90-130); Glucose 143 mg/dL (65-115); Osmolality Calculated 298 mOsm/kg (285-295); Potassium 3.9 mmol/L (3.5-5.1); Sodium 139 mmol/L (136-145); Total Bilirubin 0.5 mg/dL (0.15-1.2); Total Protein 6.6 g/dL (6.6-8.7)
[2022-01-15 05:28] LABS: Procalcitonin 7.78 ng/mL (0-0.5)
[2022-01-15 05:30] LABS: Alkaline Phosphatase 178 IU/L (40-130)
[2022-01-15 05:52] LABS: Slide Review Slide Review Perform
[2022-01-15] MEDS: sodium chloride 0.9% 1,000 ML 125 ML IV (06:14)
[2022-01-15] MEDS: heparin 5,000 unit/mL INJ 1 mL 5000 UNIT SUBCUT ×2 (06:15→17:03)
[2022-01-15] MEDS: piperacillin-tazobactam 3.375 GM in sodium chloride 0.9% (plus) 50 ML IV ×3 (06:15→22:31)
--- NOTE | 2022-01-15 07:55 | USR_ITS ---
PROCEDURE INFORMATION: Exam: US Duplex Lower Extremity Veins, Bilateral Exam date and time: 01/15/2022 8:42 AM Age: 66 years old Clinical indication: Swelling (edema) of limb; Lower extremity, bilateral; Additional info: Dvt TECHNIQUE: Imaging protocol: Real-time Duplex ultrasound of the bilateral extremities with 2-D hardin scale, color Doppler flow and spectral waveform analysis with image documentation. Complete exam focused on the bilateral lower extremity veins. COMPARISON: MRI Knee w/o LEFT* [id number] 03/30/2016 3:55 PM FINDINGS: Right deep veins: Unremarkable. The common femoral, femoral, proximal profunda femoral and popliteal veins are patent without thrombus. Normal Doppler waveforms. Normal compressibility and/or augmentation response. Right superficial veins: Saphenofemoral junction is patent without thrombus. Left deep veins: Unremarkable. The common femoral, femoral, proximal profunda femoral and popliteal veins are patent without thrombus. Normal Doppler waveforms. Normal compressibility and/or augmentation response. Left superficial veins: Saphenofemoral junction is patent without thrombus. Soft tissues: Unremarkable. US/CV venous duplex [facility] [id number] IMPRESSION: No evidence of deep vein thrombosis.
[2022-01-15] MEDS: vancomycin 1,000 MG in sodium chloride 0.9% 250 ML 250 MG IV (09:36)
--- NOTE | 2022-01-15 10:33 | PC.CHAP ---
Pastoral Care Encounter/Spiritual Assessment Type of Contact [] Declined senior hardware design engineer visit [] Patient/Family/Request visit [] Outpatient visit [] Follow-up visit [] Physician referral [] Code/Alert [x] Routine visit [] Staff referral [] Actively dying [] Patient sleeping [] Family support [] [] Out of room [] Palliative care [] [x] Receiving care in room [] Pre-surgical visit [] Trauma [] Long length of stay [x] ICU visit [x] Other: vent Relational/Emotional Strength [] Patient feels connected with others/family/visitors/staff [] Distress [] Loneliness/isolation [] Abandonment Spirituality of Patient [] Person of [place] [] Attends Evangelical of their [place] [] Believes in Prayer [] Reads Bible or Church materials [] There are Spiritual issues to be addressed [employer] Para Professional Interventions [x] Prayer [] Active listening [] Non-anxious presence [] Spiritual/emotional support [] Crisis/trauma care [] Spiritual counseling [] Bereavement support [] Provided bereavement packet [] Provided Bible/devotional materials [] Provided toy/stuffed animal, coloring book to patient or family member [] Provided Communion [] Anointing/[place] [] Salvation [x] Completed spiritual assessment [] Other: Impact on Illness or Injury [] Angry [] Fearful [] Anxious [] Often cries [] Exhaustion [] Unable to work [] Unable to attend methodist [] Unable to walk/stand [] Unable to read [] Unable to drive [] Unable to eat/drink [] Unable to sleep [] Unable to be with family [] Patient intubated [] Other: Summary Time spent with patient
[2022-01-15] MEDS: propofol 1,000 MG/100 ML INJ 2.45 MG IV (15:31)
[2022-01-15] MEDS: sodium chloride 0.9% 1,000 ML 100 ML IV (16:00)
[2022-01-15] MEDS: norepinephrine 8 MG in dextrose 5 % 500 ML 22.86 MG IV (16:08)
--- NOTE | 2022-01-15 19:00 | PC.NURSE ---
Levophed Upon assessment of patient, levophed paused. MAR displays administration of 6 mcg/min. MAR updated to reflect actual administration.
--- NOTE | 2022-01-15 19:25 | P.PN_ITS ---
Subjective Subjective: Patient was seen and examined this morning, continues to be intubated sedated and on mechanical ventilation. GCS off sedation is 10T, Continue to make good urine output, kidney function has normalized, FiO2 requirement is going down, though he continued to have Thick secretions, Levophed requirement has also gone down. No other acute events. His other vitals and labs have been reviewed. Medications: Medication Review Details: Generic Name Dose Route Start Last Admin Trade Name Jennifer PRN Reason Stop Dose Admin Albuterol/Ipratrop ium 3 ml 01/14/22 00:00 01/14/22 15:09 Ipratropium-Albu terol 3 Ml Neb INHALATION 3 ml Q4H.RESPIRATORY S CH Administration Heparin Sodium (Po rcine) 5,000 unit 01/13/22 18:00 01/14/22 06:34 Heparin 5,000 Un it/Ml Inj 1 Ml SUBCUT 5,000 unit Q12H KATARZYNA Administration Propofol 1,000 mg in 100 m ls @ 0 mls/hr 01/13/22 15:15 01/13/22 15:50 Diprivan IV 0 mcg/kg/min .Q0M KATARZYNA 0 mls/hr Titration Protocol Per Protocol Fentanyl 2,500 mcg / Sodium 250 mls @ 0 mls/h r 01/13/22 15:30 01/14/22 03:08 Chloride IV 100 mcg/hr .Q0M KATARZYNA 10 mls/hr Titration Protocol Per Protocol Midazolam HCl 100 mg/ Sodium 100 mls @ 0 mls/h r 01/13/22 15:30 01/14/22 03:08 Chloride IV 3 mg/hr .Q0M KATARZYNA 3 mls/hr Titration Protocol Per Protocol Sodium Chloride 1,000 mls @ 125 m ls/hr 01/13/22 17:00 01/14/22 13:36 Sodium Chloride 0.9% IV 125 mls/hr .Q8H KATARZYNA Administration Piperacillin Sod/T azobactam 50 mls @ 12.5 mls /hr 01/13/22 23:30 01/14/22 15:14 Sod 3.375 gm/ So dium Chloride IV 12.5 mls/hr Q8H KATARZYNA Administration Protocol Vancomycin HCl 1,0 00 mg/ 250 mls @ 250 mls /hr 01/13/22 20:30 01/13/22 20:55 Sodium Chloride IV Infused Q36H KATARZYNA Infusion Protocol Norepinephrine Bit artrate 8 mg 508 mls @ 0 mls/h r 01/14/22 09:30 01/14/22 09:58 / Dextrose IV 10 mcg/min .Q0M KATARZYNA 38.1 mls/hr Administration Protocol Per Protocol Vitals/I&O/Wt Last Vital Signs Temp 99.4 F 01/15/22 17:00 Pulse 103 H 01/15/22 17:00 Resp 18 01/15/22 17:47 BP 115/66 01/15/22 17:00 Pulse Ox 94 01/15/22 17:47 01/15/22 01/15/22 01/15/22 06:59 14:59 22:59 Intake Total 1558 / 7593.427 1268.548 / 1268.548 750.202 / 2017.750 Output Total 1300 / 2900 1000 / 1000 Balance 258 / 4693.427 1268.548 / 1268.548 -249.798 / 1018.750 Physical Exam Narrative: Is intubated sedated Const: COMMON NORMALS: patient oriented x3 HENMT: COMMON NORMALS: normocephalic and atraumatic HEAD & SCALP: normoc ephalic and atraumatic Chest: COMMONS NORMALS: normal inspection of the chest and normal palpation of entire chest wall CHEST: Yes Symmetrical chest wall rise Resp: COMMON NORMALS: normal respiratory effort, No retractions, No use of accessory muscles and clear to auscultation bilaterally EFFORT & INSPECTION: Yes symmetric chest movement AUSCULTATION: clear to auscultation bilaterally Cardio: COMMON NORMALS: regular rate, regular rhythm, S1 normal heart sound present, S2 normal heart sound present, No gallops present (Cardio), No murmurs present (Cardio), No rub (Cardio) and Peripheral pulses 2+ throughout RATE: regular rate RHYTHM: regular rhythm HEART SOUNDS: S1 normal heart sound present and S2 normal heart sound present PERIPHERAL PULSES: Peripheral pulses 2+ throughout GI: COMMON NORMALS: Normal to inspection, nondistended, normoactive bowel sounds present, Soft to palpation, non-tender, No hepatosplenomegaly present and no masses AUSCULTATION: Yes normoactive bowel sounds PALPATION: Yes Soft to palpation and Yes No hepatosplenomegaly present RECTAL EXAM: Yes deferred Extremity: COMMON NORMALS: no clubbing, cyanosis or edema and no pedal edema Neuro: COMMON NORMALS: patient oriented x3 Urinary Catheter Management: Mcfadden: Cath Placed During This Visit: yes Reason for Continuing Indwelling Catheter: Accurate Measurement of Urinary Output in Critically Ill Patients Urinary Catheter Date of Insertion: 01/13/22 Urinary Catheter Time of Insertion: 14:30 Data : 01/15/22 03:50 01/15/22 03:50 Micro: Microbiology 01/13/22 16:11 Gram Stain - Final Sputum - Expectorated Sputum Sputum Culture - Preliminary Streptococcus pneumoniae 01/13/22 21:05 Blood Culture - Preliminary Blood NEGATIVE TO DATE 01/13/22 16:48 Blood Culture - Preliminary Blood NEGATIVE TO DATE A&P Assessment and plan (1) Pneumonia: Status: Acute (2) Respiratory failure with hypoxia and hypercapnia: Status: Acute (3) Acute kidney injury superimposed on CKD: Status: Acute (4) Sepsis: Status: Acute Plan 66 year old male with no significant PMH came in c/o worsening SOB for the last 7 days, as well has experienced one episode of fever yesterday,he was also experiencing recurrent vomiting for the last 2 days #Septic shock 2/2 PNA: Patient came in with sob, fever, cough, xary chest has infiltrates, aspiration PNA is a concern, given recurrent vomiting for the last 2days.He is hypotensive. Current plan is institute sepsis bundle. Follow Blood culture : Sputum Gram stain and culture: Rare Gram-positive cocci in pairs Urine Culture Monitor Xray chest Monitor ABG 2D Echo : Normal LV size and systolic function with EF of 64%, mildly increased LV size , mild TR. Follow up repeat lactic acid : 2.3 Follow Repeat Procalcitonin: MRSA PCR : Negative Continue Vancomycin and zosyn for now Ac Hypoxic and Hypercapnic R/F : 2/2 PNA Continue Mechanical Ventilation DUO NEBS Plan as above JUANITA v/s JUANITA ON CKD : Likely prerenal JUANITA secondary to volume depletion, Admission SCR : 3.5 Baseline SCR Unknown Follow Urine Random Na and CR Renal U/S Monitor BMP Continue I.V Hydration with Ns @ 125 cc/hr Monitor Intake and output Possible renal Consult # Code Status :Full Code #DVT PPX: On Heparin Attestations Medical Necessity Statement*: Patient needs to be in hospital for management of above defined problems. Time Spent in Patient Care: Greater than 35 minutes (>than 50% of time spe nt in counselling and/or direct pt care on unit) . 50 Critical Care Time: The high probability of a clinically significant, sudden or life threatening deterioration of the patient's [] system(s) required my full and direct attention, intervention and personal management. The critical care time is as shown. This time is in addition to time spent performing any reported procedures but includes the following: [x] Data and vital sign review and interpretation [x] Patient assessment, examination and intervention [x] Documentation [x] Medication orders and management Coding Level of Care Code Acute Sludge Control Operator for Chg Fwd Diagnoses Pneumonia J18.9 Respiratory failure with hypoxia and hypercapnia J96.91; J96.92 Acute kidney injury superimposed on CKD N17.9; N18.9 Sepsis A41.9
[2022-01-15] MEDS: levofloxacin-dextrose 5 % 750 MG/150 ML PREMIX 100 MG IV (21:08)
[2022-01-16] VITALS (86 sets, daily range): BP systolic 76–127; BP diastolic 51–89; PULSE 85–105; RESP 18–28; TEMP 36.9–37.9; O2SAT 91–100; BMI 32.3
[2022-01-16] MEDS: sodium chloride 0.9% 1,000 ML 100 ML IV (02:40)
[2022-01-16] MEDS: vancomycin 1,250 MG/250 ML PIGGYBACK 200 MG IV (03:19)
[2022-01-16] MEDS: ipratropium-albuterol 3 mL Neb INHALATION ×6 (03:30→23:26)
[2022-01-16 03:44] LABS: Basophils # 0.1 10^3/uL (0.0-0.1); Basophils % 0.4 %; Eosinophils # 0.2 10^3/uL (0.0-0.8); Eosinophils % 0.8 %; Hematocrit 32.3 % (42.0-52.0); Hemoglobin 9.9 g/dL (11.7-16.6); Lymphocytes # 1.2 10^3/uL (0.8-4.8); Lymphocytes % 5.8 %; Mean Corpuscular HGB Conc 30.7 g/dL (30.0-36.0); Mean Platelet Volume 9.5 fL (7.4-10.4); Monocytes # 1.4 10^3/uL (0.2-0.9); Monocytes % 6.5 %; Neutrophils # 17.89 10^3/uL (1.8-7.7); Neutrophils % 85.6 %; Nucleated Red Blood Cells % 0 %; Platelet Count 302 10^3/cmm (130-400); Red Blood Count 3.67 10^6/uL (4.1-5.3); Red Cell Distribution Width 15.3 % (12.1-15.1); White Blood Count 20.9 10^3/uL (4.0-10.0)
[2022-01-16 04:07] LABS: Alanine Aminotransferase 11 U/L (0-41); Albumin Level 2.4 g/dL (3.5-5.2); Alkaline Phosphatase 509 IU/L (40-130); Anion Gap 13.6 (5-19); Aspartate Amino Transferase 15 U/L (0-40); Blood Urea Nitrogen 23 mg/dL (8-23); Calcium 8.4 mg/dL (8.5-10.5); Carbon Dioxide 24 mmol/L (22-29); Chloride 102 mmol/L (98-107); Creatinine Clr Calc Pharmacy 92.1235; Glomerular Filtration Rate 112.1 mL/min (90-130); Glucose 92 mg/dL (65-115); Osmolality Calculated 285 mOsm/kg (285-295); Potassium 3.6 mmol/L (3.5-5.1); Sodium 136 mmol/L (136-145); Total Bilirubin 0.8 mg/dL (0.15-1.2); Total Protein 6.4 g/dL (6.6-8.7)
[2022-01-16 04:13] LABS: Procalcitonin 3.53 ng/mL (0-0.5)
[2022-01-16 04:19] LABS: ABG PCO2 42.6 mmHg (35-45); ABG PH Result 7.41 (7.35-7.45); Alveolar-Arterial Oxygen Gradi 21.4 mmHg (5-10); Arterial Blood Gas Hematocrit 32.3 % (42-52); Base Excess ABG 2.1 mmol/L (-2.0-2.0); Blood Gas Sample Site Brachial, left; Blood Gas Sample Type Arterial; Carboxyhemoglobin 1.1 %THgb (0.4-20.1); HCO3 ABG 27.1 mmol/L (22-26); HGB O2 Sat 93.2 % (95-100); Ionized Calcium Level - ABG 1.1 mmol/L (1.1-1.4); Methemoglobin 0.2 % (0.4-1.5); Oxygen Device VENT; Oxygen Saturation ABG 94.3; PO2 ABG 66.6 mmHg (80.0-100.0); Potassium Level - ABG 3.4 mmol/L (3.5-5.0); Total Hemoglobin 10.5 g/dL (14-18)
[2022-01-16] MEDS: heparin 5,000 unit/mL INJ 1 mL 5000 UNIT SUBCUT ×2 (06:14→18:05)
[2022-01-16] MEDS: piperacillin-tazobactam 3.375 GM in sodium chloride 0.9% (plus) 50 ML IV ×3 (07:11→23:04)
--- NOTE | 2022-01-16 07:23 | PC.NURSE ---
Shift Note Frequent safety and comfort rounds continue. Orders and/or nursing care completed as indicated. Patient monitored for response to intervention and treatment(s). Overnight, patient would attempt to move arms and grimace. Sedation titrated per protocol for pain and comfort; see MAR for amounts. Propofol titrated back down due to slowly increasing hypotension. Will continue to monitor.
[2022-01-16] MEDS: propofol 1,000 MG/100 ML INJ 7.35 MG IV (09:03)
--- NOTE | 2022-01-16 14:49 | PC.SOCIAL ---
Pg 2 IMM Explained to pt's significant other, Pg 2 IMM, via phone. No questions voiced. Provided pt a copy. Initialed, dated, & timed a copy & placed in chart.
[2022-01-16] MEDS: levofloxacin-dextrose 5 % 750 MG/150 ML PREMIX 100 MG IV (19:06)
--- NOTE | 2022-01-16 20:00 | PC.NURSE ---
Temperature Patient axillary temperature 100.2F, patient's skin moist and hot. Sheet removed from patient, room temperature turned down, and fan turned on patient. Temperature to be monitored.
[2022-01-16] MEDS: propofol 1,000 MG/100 ML INJ 9.8 MG IV (21:22)
[2022-01-17] VITALS (78 sets, daily range): BP systolic 84–112; BP diastolic 45–76; PULSE 79–98; RESP 16–28; TEMP 36.9–37.4; O2SAT 92–100; BMI 32.1
[2022-01-17] MEDS: ipratropium-albuterol 3 mL Neb INHALATION ×6 (03:12→23:05)
[2022-01-17 03:19] LABS: ABG PCO2 41.9 mmHg (35-45); ABG PH Result 7.44 (7.35-7.45); Alveolar-Arterial Oxygen Gradi 20.8 mmHg (5-10); Arterial Blood Gas Hematocrit 32.7 % (42-52); Base Excess ABG 3.9 mmol/L (-2.0-2.0); Blood Gas Allen Test Pos; Blood Gas Sample Site Radial, right; Blood Gas Sample Type Arterial; HCO3 ABG 28.4 mmol/L (22-26); HGB O2 Sat 93.8 % (95-100); Ionized Calcium Level - ABG 1.1 mmol/L (1.1-1.4); Methemoglobin 1.1 % (0.4-1.5); Oxygen Device VENT; Oxygen Saturation ABG 95.9; PO2 ABG 74.6 mmHg (80.0-100.0); Potassium Level - ABG 3.5 mmol/L (3.5-5.0); Total Hemoglobin 10.7 g/dL (14-18)
[2022-01-17 04:36] LABS: Hemoglobin 10.2 g/dL (11.7-16.6); Mean Corpuscular HGB Conc 31.9 g/dL (30.0-36.0); Mean Corpuscular Hemoglobin 27.8 pg (28.0-34.0); Mean Corpuscular Volume 87.2 fl (80-94); Mean Platelet Volume 9.4 fL (7.4-10.4); Platelet Count 298 10^3/cmm (130-400); Red Blood Count 3.67 10^6/uL (4.1-5.3); Red Cell Distribution Width 15.3 % (12.1-15.1); White Blood Count 11.9 10^3/uL (4.0-10.0)
[2022-01-17] MEDS: propofol 1,000 MG/100 ML INJ 9.8 MG IV (04:44)
[2022-01-17 05:06] LABS: Blood Urea Nitrogen 18 mg/dL (8-23); Calcium 8.5 mg/dL (8.5-10.5); Carbon Dioxide 26 mmol/L (22-29); Chloride 101 mmol/L (98-107); Glomerular Filtration Rate 112.1 mL/min (90-130); Glucose 164 mg/dL (65-115); Osmolality Calculated 290 mOsm/kg (285-295); Sodium 137 mmol/L (136-145)
[2022-01-17 05:10] LABS: Slide Review Slide Review Perform
[2022-01-17 05:14] LABS: Absolute Eosinophils 0.4 10^3/cmm (0.0-0.7); Absolute Neutrophil 9.2 10^3/cmm (1.4-6.5); Absolute Segmented Neutrophil 8.3 10/cmm (1.6-7.1); Band Neutrophils Absolute 0.8 10^3/cmm (0.0-1.2); Eosinophils 4 %; Lymphocytes 18 %; Lymphocytes Absolute 2.1 10^3/cmm (1.2-3.4); Monocytes Absolute 0.1 10^3/cmm (0.1-0.6); Platelet Estimate Normal (Normal); Segmented Neutrophils 70 %; Total Cells Counted 100 (0-100)
[2022-01-17] MEDS: heparin 5,000 unit/mL INJ 1 mL 5000 UNIT SUBCUT ×2 (05:28→17:56)
[2022-01-17] MEDS: piperacillin-tazobactam 3.375 GM in sodium chloride 0.9% (plus) 50 ML IV ×3 (07:12→23:11)
--- NOTE | 2022-01-17 09:22 | P.PN_ITS ---
Subjective Subjective: Patient was seen and examined this morning, continues to be intubated sedated and on mechanical ventilation. GCS off sedation is 10T, Continue to make good urine output, kidney function has normalized, FiO2 requirement is going down,kidney function has improved.On minimum of levophed. No other acute events. His other vitals and labs have been reviewed. Medications: Medication Review Details: Generic Name Dose Route Start Last Admin Trade Name Bravoq PRN Reason Stop Dose Admin Albuterol/Ipratrop ium 3 ml 01/14/22 00:00 01/14/22 15:09 Ipratropium-Albu terol 3 Ml Neb INHALATION 3 ml Q4H.RESPIRATORY S CH Administration Heparin Sodium (Po rcine) 5,000 unit 01/13/22 18:00 01/14/22 06:34 Heparin 5,000 Un it/Ml Inj 1 Ml SUBCUT 5,000 unit Q12H KATARZYNA Administration Propofol 1,000 mg in 100 m ls @ 0 mls/hr 01/13/22 15:15 01/13/22 15:50 Diprivan IV 0 mcg/kg/min .Q0M KATARZYNA 0 mls/hr Titration Protocol Per Protocol Fentanyl 2,500 mcg / Sodium 250 mls @ 0 mls/h r 01/13/22 15:30 01/14/22 03:08 Chloride IV 100 mcg/hr .Q0M KATARZYNA 10 mls/hr Titration Protocol Per Protocol Midazolam HCl 100 mg/ Sodium 100 mls @ 0 mls/h r 01/13/22 15:30 01/14/22 03:08 Chloride IV 3 mg/hr .Q0M KATARZYNA 3 mls/hr Titration Protocol Per Protocol Sodium Chloride 1,000 mls @ 125 m ls/hr 01/13/22 17:00 01/14/22 13:36 Sodium Chloride 0.9% IV 125 mls/hr .Q8H KATARZYNA Administration Piperacillin Sod/T azobactam 50 mls @ 12.5 mls /hr 01/13/22 23:30 01/14/22 15:14 Sod 3.375 gm/ So dium Chloride IV 12.5 mls/hr Q8H KATARZYNA Administration Protocol Vancomycin HCl 1,0 00 mg/ 250 mls @ 250 mls /hr 01/13/22 20:30 01/13/22 20:55 Sodium Chloride IV Infused Q36H KATARZYNA Infusion Protocol Norepinephrine Bit artrate 8 mg 508 mls @ 0 mls/h r 01/14/22 09:30 01/14/22 09:58 / Dextrose IV 10 mcg/min .Q0M KATARZYNA 38.1 mls/hr Administration Protocol Per Protocol Vitals/I&O/Wt Last Vital Signs Temp 98.5 F 01/17/22 08:00 Pulse 97 01/17/22 08:00 Resp 18 01/17/22 08:00 BP 105/71 01/17/22 08:00 Pulse Ox 94 01/17/22 08:00 01/16/22 01/17/22 01/17/22 22:59 06:59 14:59 Intake Total 891.028 / 1012.869 384.193 / 1397.062 0 / 0 Output Total 1050 / 1050 1100 / 2150 Balance -158.972 / -37.131 -715.807 / -752.938 0 / 0 Weight last 48 hrs Weight 96.026 kg Weight 96.479 kg Physical Exam Narrative: Is intubated sedated Const: COMMON NORMALS: patient oriented x3 HENMT: COMMON NORMALS: normocephalic and atraumatic HEAD & SCALP: normocephalic and atraumatic Chest: COMMONS NORMALS: normal inspection of the chest and normal palpation of entire chest wall CHEST: Yes Symmetrical chest wall rise Resp: COMMON NORMALS: normal respiratory effort, No retractions, No use of accessory muscles and clear to auscultation bilaterally EFFORT & INSPECTION: Yes symmetric chest movement AUSCULTATION: clear to auscultation bilaterally OTHER: Coarse Breath sounds B/L Cardio: COMMON NORMALS: regular rate, regular rhythm, S1 normal heart sound present, S2 normal heart sound present, No gallops present (Cardio), No murmurs present (Cardio), No rub (Cardio) and Peripheral pulses 2+ throughout RATE: regular rate RHYTHM: regular rhythm HEART SOUNDS: S1 normal heart sound present and S2 normal heart sound present PERIPHERAL PULSES: Peripheral pulses 2+ throughout GI: COMMON NORMALS: Normal to inspection, nondistended, normoactive bowel sounds present, Soft to palpation, non-tender, No hepatosplenomegaly present and no masses AUSCULTATION: Yes normoactive bowel sounds PALPATION: Yes Soft to palpation and Yes No hepatosplenomegaly present RECTAL EXAM: Yes deferred Extremity: COMMON NORMALS: no clubbing, cyanosis or edema and no pedal edema Neuro: COMMON NORMALS: patient oriented x3 Urinary Catheter Management: Mcfadden: Cath Placed During This Visit: yes Reason for Continuing Indwelling Catheter: Accurate Measurement of Urinary Output in Critically Ill Patients Urinary Catheter Date of Insertion: 01/13/22 Urinary Catheter Time of Insertion: 14:30 Data : 01/17/22 04:00 01/17/22 04:00 Micro: Microbiology 01/13/22 16:11 Gram Stain - Final Sputum - Expectorated Sputum Sputum Culture - Final Streptococcus pneumoniae A&P Assessment and plan (1) Pneumonia: Status: Acute (2) Respiratory failure with hypoxia and hypercapnia: Status: Acute (3) Acute kidney injury superimposed on CKD: Status: Acute (4) Sepsis: Status: Acute Plan 66 year old male with no significant PMH came in c/o worsening SOB for the last 7 days, as well has experienced one episode of fever yesterday,he was also experiencing recurrent vomiting for the last 2 days #Septic shock 2/2 PNA: Patient came in with sob, fever, cough, xary chest has infiltrates, aspiration PNA is a concern, given recurrent vomiting for the last 2days.He is hypotensive. Current plan is institute sepsis bundle. Follow Blood culture : Sputum Gram stain and culture: Rare Gram-positive cocci in pairs Urine Culture Monitor Xray chest Monitor ABG 2D Echo : Normal LV size and systolic function with EF of 64%, mildly increased LV size , mild TR. Follow up repeat lactic acid : 2.3 Follow Repeat Procalcitonin: MRSA PCR : Negative Continue Vancomycin and zosyn for now Ac Hypoxic and Hypercapnic R/F : 2/2 PNA Continue Mechanical Ventilation DUO NEBS Plan as above JUANITA v/s JUANITA ON CKD : Likely prerenal JUANITA secondary to volume depletion, Admission SCR : 3.5 Baseline SCR Unknown Follow Urine Random Na and CR Renal U/S Monitor BMP Continue I.V Hydration with Ns @ 125 cc/hr Monitor Intake and output Possible renal Consult # Code Status :Full Code #DVT PPX: On Heparin Attestations Medical Necessity Statement*: Patient needs to be in hospital for management of above defined problems Time Spent in Patient Care: Greater than 35 minutes (>than 50% of time spent in counselling and/or direct pt care on unit) . Critical Care Time: 45 Other Attestations: The high probability of a clinically significant, sudden or life threatening deterioration of the patient's [] system(s) required my full and direct attention, intervention and personal management. The critical care time is as shown. 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
--- NOTE | 2022-01-17 09:38 | XRR_ITS ---
PROCEDURE INFORMATION: Exam: XR Chest Exam date and time: 01/17/2022 9:52 AM Age: 66 years old Clinical indication: Device placement; Other: Replaced og tube TECHNIQUE: Imaging protocol: XR of the chest. Views: 1 view. COMPARISON: CR XR chest 1V portable [id number] 01/15/2022 4:41 AM FINDINGS: The thorax is partially obscured by overlying EKG leads. Tubes, catheters and devices: Termination of feeding tube in the proximal stomach. Endotracheal tube terminates 2.0 cm above the josseline. Termination of central venous catheter in the right atrium. Lungs: Hypoinflation with interstitial prominence and asymmetric airspace disease. Pleural spaces: Asymmetric pleural effusions with obscuration of the left hemidiaphragm. Heart/Mediastinum: Borderline cardiomegaly. Vasculature: Calcification of the thoracic aorta. Bones/joints: Degenerative change. XR/XR chest 1V portable [id number] IMPRESSION: 1. Termination of feeding tube in the proximal stomach. Endotracheal tube terminates 2.0 cm above the josseline. Termination of central venous catheter in the right atrium. 2. Hypoinflation with asymmetric airspace disease and pleural effusions.
[2022-01-17] MEDS: propofol 1,000 MG/100 ML INJ 12.25 MG IV (12:58)
[2022-01-17] MEDS: dexmedeTOMIDine 0.9 % NaCL 400 MCG/100 ML PREMIX IV (14:59)
[2022-01-17] MEDS: levofloxacin-dextrose 5 % 750 MG/150 ML PREMIX 100 MG IV (18:21)
[2022-01-17] MEDS: propofol 1,000 MG/100 ML INJ 4.9 MG IV (20:29)
[2022-01-17] MEDS: sodium chloride 0.9% 1,000 ML 75 ML IV (21:17)
[2022-01-17] MEDS: dexmedeTOMIDine 0.9 % NaCL 400 MCG/100 ML PREMIX 14.4 MCG IV (23:10)
[2022-01-18] VITALS (66 sets, daily range): BP systolic 90–124; BP diastolic 58–79; PULSE 72–97; RESP 16–42; TEMP 36.8–37.4; O2SAT 89–97
--- NOTE | 2022-01-18 01:16 | PC.NURSE ---
Versed gtt wasted with Anita LAU as witness. Total of 35 mg were properly disposed of.
[2022-01-18] MEDS: propofol 1,000 MG/100 ML INJ 4.9 MG IV (02:44)
[2022-01-18] MEDS: ipratropium-albuterol 3 mL Neb INHALATION ×6 (03:14→23:30)
[2022-01-18 03:30] LABS: ABG PCO2 41.8 mmHg (35-45); ABG PH Result 7.44 (7.35-7.45); Alveolar-Arterial Oxygen Gradi 27.5 mmHg (5-10); Arterial Blood Gas Hematocrit 33.3 % (42-52); Base Excess ABG 4.1 mmol/L (-2.0-2.0); Blood Gas Allen Test Pos; Blood Gas Sample Site Radial, left; Blood Gas Sample Type Arterial; Carboxyhemoglobin 0.7 %THgb (0.4-20.1); HCO3 ABG 28.6 mmol/L (22-26); HGB O2 Sat 96.3 % (95-100); Ionized Calcium Level - ABG 1.1 mmol/L (1.1-1.4); Methemoglobin 0.9 % (0.4-1.5); Oxygen Device VENT; Oxygen Saturation ABG 97.9; PO2 ABG 93.1 mmHg (80.0-100.0); Potassium Level - ABG 3.7 mmol/L (3.5-5.0); Total Hemoglobin 10.9 g/dL (14-18)
[2022-01-18 04:32] LABS: Basophils # 0.1 10^3/uL (0.0-0.1); Basophils % 0.8 %; Eosinophils # 0.3 10^3/uL (0.0-0.8); Eosinophils % 2.5 %; Hematocrit 32.9 % (42.0-52.0); Hemoglobin 10.5 g/dL (11.7-16.6); Lymphocytes # 1.3 10^3/uL (0.8-4.8); Lymphocytes % 11.2 %; Mean Corpuscular HGB Conc 31.9 g/dL (30.0-36.0); Mean Corpuscular Hemoglobin 27.9 pg (28.0-34.0); Mean Corpuscular Volume 87.3 fl (80-94); Mean Platelet Volume 9.7 fL (7.4-10.4); Monocytes # 1.7 10^3/uL (0.2-0.9); Monocytes % 14.3 %; Neutrophils # 6.59 10^3/uL (1.8-7.7); Neutrophils % 56.5 %; Nucleated Red Blood Cells % 0 %; Platelet Count 356 10^3/cmm (130-400); Red Blood Count 3.77 10^6/uL (4.1-5.3); Red Cell Distribution Width 15.3 % (12.1-15.1); White Blood Count 11.7 10^3/uL (4.0-10.0)
[2022-01-18 05:06] LABS: Chloride 101 mmol/L (98-107); Potassium 4.2 mmol/L (3.5-5.1); Sodium 137 mmol/L (136-145)
[2022-01-18 05:38] LABS: Anion Gap 13.2 (5-19); Blood Urea Nitrogen 13 mg/dL (8-23); Calcium 8.6 mg/dL (8.5-10.5); Carbon Dioxide 27 mmol/L (22-29); Glucose 130 mg/dL (65-115); Osmolality Calculated 286 mOsm/kg (285-295)
[2022-01-18] MEDS: dexmedeTOMIDine 0.9 % NaCL 400 MCG/100 ML PREMIX 14.4 MCG IV ×2 (05:52→12:35)
[2022-01-18] MEDS: heparin 5,000 unit/mL INJ 1 mL 5000 UNIT SUBCUT ×2 (05:52→17:27)
[2022-01-18] MEDS: piperacillin-tazobactam 3.375 GM in sodium chloride 0.9% (plus) 50 ML IV ×3 (07:03→23:28)
--- NOTE | 2022-01-18 08:42 | PC.NUTR ---
If Jevity 1.2 is resumed, recommend goal rate of 50 mls/hr with flushes 120 mls Q4H to better meet Pt's estimated calorie, protein and fluid needs. Details in RD assessment.
[2022-01-18] MEDS: lactulose oral liq 20 gm/30 mL UDC PO (09:42)
[2022-01-18] MEDS: propofol 1,000 MG/100 ML INJ 14.7 MG IV (09:42)
[2022-01-18] MEDS: sodium chloride 0.9% 1,000 ML 75 ML IV (09:43)
--- NOTE | 2022-01-18 09:56 | PC.CHAP ---
Pastoral Care Encounter/Spiritual Assessment Type of Contact [] Declined earth science laboratory technician visit [] Patient/Family/Request visit [] Outpatient visit [] Follow-up visit [] Physician referral [] Code/Alert [x] Routine visit [] Staff referral [] Actively dying [] Patient sleeping [] Family support [] [] Out of room [] Palliative care [] [] Receiving care in room [] Pre-surgical visit [] Trauma [] Long length of stay [x] ICU visit [x] Other: vent Relational/Emotional Strength [] Patient feels connected with others/family/visitors/staff [] Distress [] Loneliness/isolation [] Abandonment Spirituality of Patient [] Person of [place] [] Attends [employer] of their [place] [] Believes in Prayer [] Reads Bible or Mosque materials [] There are Spiritual issues to be addressed Screen Door Maker Interventions [x] Prayer [] Active listening [] Non-anxious presence [] Spiritual/emotional support [] Crisis/trauma care [] Spiritual counseling [] Bereavement support [] Provided bereavement packet [] Provided Bible/devotional materials [] Provided toy/stuffed animal, coloring book to patient or family member [] Provided Communion [] Anointing/[place] [] Salvation [x] Completed spiritual assessment [] Other: Impact on Illness or Injury [] Angry [] Fearful [] Anxious [] Often cries [] Exhaustion [] Unable to work [] Unable to attend baptist [] Unable to walk/stand [] Unable to read [] Unable to drive [] Unable to eat/drink [] Unable to sleep [] Unable to be with family [] Patient intubated [] Other: Summary Time spent with patient
--- NOTE | 2022-01-18 11:10 | PM.PN ---
Subjective Subjective: Patient was seen and examined this morning, continues to be intubated sedated and on mechanical ventilation. GCS off sedation is 10T. Patient been on MMV Mode since yesterday and has tolerated it well. AM ABG: pH 7.44, PCO2 41, PO2 93, FiO2 50% PEEP of 8. Patient was successfully extubated today to 6 L oxygen through nasal cannula. Medications: Medication Review Details: Generic Name Dose Route Start Last Admin Trade Name Freq PRN Reason Stop Dose Admin Albuterol/Ipratrop ium 3 ml 01/14/22 00:00 01/14/22 15:09 Ipratropium-Albu terol 3 Ml Neb INHALATION 3 ml Q4H.RESPIRATORY S CH Administration Heparin Sodium (Po rcine) 5,000 unit 01/13/22 18:00 01/14/22 06:34 Heparin 5,000 Un it/Ml Inj 1 Ml SUBCUT 5,000 unit Q12H KATARZYNA Administration Propofol 1,000 mg in 100 m ls @ 0 mls/hr 01/13/22 15:15 01/13/22 15:50 Diprivan IV 0 mcg/kg/min .Q0M KATARZYNA 0 mls/hr Titration Protocol Per Protocol Fentanyl 2,500 mcg / Sodium 250 mls @ 0 mls/h r 01/13/22 15:30 01/14/22 03:08 Chloride IV 100 mcg/hr .Q0M KATARZYNA 10 mls/hr Titration Protocol Per Protocol Midazolam HCl 100 mg/ Sodium 100 mls @ 0 mls/h r 01/13/22 15:30 01/14/22 03:08 Chloride IV 3 mg/hr .Q0M KATARZYNA 3 mls/hr Titration Protocol Per Protocol Sodium Chloride 1,000 mls @ 125 m ls/hr 01/13/22 17:00 01/14/22 13:36 Sodium Chloride 0.9% IV 125 mls/hr .Q8H KATARZYNA Administration Piperacillin Sod/T azobactam 50 mls @ 12.5 mls /hr 01/13/22 23:30 01/14/22 15:14 Sod 3.375 gm/ So dium Chloride IV 12.5 mls/hr Q8H KATARZYNA Administration Protocol Vancomycin HCl 1,0 00 mg/ 250 mls @ 250 mls /hr 01/13/22 20:30 01/13/22 20:55 Sodium Chloride IV Infused Q36H KATARZYNA Infusion Protocol Norepinephrine Bit artrate 8 mg 508 mls @ 0 mls/h r 01/14/22 09:30 01/14/22 09:58 / Dextrose IV 10 mcg/min .Q0M KATARZYNA 38.1 mls/hr Administration Protocol Per Protocol Vitals/I&O/Wt Last Vital Signs Temp 98.8 F 01/18/22 07:00 Pulse 75 01/18/22 10:00 Resp 18 01/18/22 10:00 BP 105/67 01/18/22 10:00 Pulse Ox 94 01/18/22 10:00 01/17/22 01/18/22 01/18/22 22:59 06:59 14:59 Intake Total 493.015 / 821.627 304.705 / 1126.332 966.637 / 966.637 Output Total 1150 / 1150 1675 / 2825 Balance -656.985 / -328.373 -1370.295 / -1698.668 966.637 / 966.637 Weight last 48 hrs Weight 96.479 kg Weight 96.026 kg Physical Exam Const: COMMON NORMALS: patient oriented x3 HENMT: COMMON NORMALS: normocephalic and atraumatic HEAD & SCALP: normocephalic and atraumatic Chest: COMMONS NORMALS: normal inspection of the chest and normal palpation of entire chest wall CHEST: Yes Symmetrical chest wall rise Resp: COMMON NORMALS: normal respiratory effort, No retractions, No use of accessory muscles and clear to auscultation bilaterally EFFORT & INSPECTION: Yes symmetric chest movement AUSCULTATION: clear to auscultation bilaterally OTHER: Coarse Breath sounds B/L Cardio: COMMON NORMALS: regular rate, regular rhythm, S1 normal heart sound present, S2 normal heart sound present, No gallops present (Cardio), No murmurs present (Cardio), No rub (Cardio) and Peripheral pulses 2+ throughout RATE: regular rate RHYTHM: regular rhythm HEART SOUNDS: S1 normal heart sound present and S2 normal heart sound present PERIPHERAL PULSES: Peripheral pulses 2+ throughout GI: COMMON NORMALS: Normal to inspection, nondistended, normoactive bowel sounds present, Soft to palpation, non-tender, No hepatosplenomegaly present and no masses AUSCULTATION: Yes normoactive bowel sounds PALPATION: Yes Soft to palpation and Yes No hepatosplenomegaly present RECTAL EXAM: Yes deferred Extremity: COMMON NORMALS: no clubbing, cyanosis or edema and no pedal edema Neuro: COMMON NORMALS: patient oriented x3 Urinary Catheter Management: Mcfadden: Cath Placed During This Visit: yes Reason for Continuing Indwelling Catheter: Accurate Measurement of Urinary Output in Critically Ill Patients Urinary Catheter Date of Insertion: 01/13/22 Urinary Catheter Time of Insertion: 14:30 Data : 01/18/22 04:17 01/18/22 04:17 A&P Assessment and plan (1) Pneumonia: Status: Acute (2) Respiratory failure with hypoxia and hypercapnia: Status: Acute (3) Acute kidney injury superimposed on CKD: Status: Acute (4) Sepsis: Status: Acute Plan 66 year old male with no significant PMH came in c/o worsening SOB for the last 7 days, as well has experienced one episode of fever yesterday,he was also experiencing recurrent vomiting for the last 2 days #Septic shock 2/2 PNA: Patient came in with sob, fever, cough, xary chest has infiltrates, aspiration PNA is a concern, given recurrent vomiting for the last 2days.He is hypotensive. Current plan is institute sepsis bundle. Blood culture : NTD MRSA PCR : Negative Sputum Gram stain and culture: Streptococcus pneumonia 2D Echo : Normal LV size and systolic function with EF of 64%, mildly increased LV size , mild TR. Urine Culture Monitor Xray chest Monitor ABG Follow up repeat lactic acid : 2.3 Follow Repeat Procalcitonin: Was on Vancomycin was discontinued Continue zosyn and levofloxacin to complete 10-day course of antibiotics Ac Hypoxic and Hypercapnic R/F : 2/2 PNA Was on Mechanical Ventilation. Status post extubation on 01/18. DUO NEBS Plan as above JUANITA v/s JUANITA ON CKD : Likely prerenal JUANITA secondary to volume depletion: Resolved Admission SCR : 3.5 Baseline SCR Unknown Current serum creatinine: 0.6 Follow Urine Random Na and CR Renal U/S : Monitor BMP Continue I.V Hydration with Ns @ 125 cc/hr Monitor Intake and output Possible renal Consult # Code Status :Full Code #DVT PPX: On Heparin Attestations Medical Necessity Statement*: Patient needs to be in hospital for management of above defined problems Time Spent in Patient Care: Greater than 35 minutes (>than 50% of time spent in counselling and/or direct pt care on unit). Critical Care Time: 40 Other Attestations: The high probability of a clinically significant, sudden or life threatening deterioration of the patient's [] system(s) required my full and direct attention, intervention and personal management. The critical care time is as shown. This time is in addition to time spent performing any reported procedures but includes the following: [x] Data and vital sign review and interpretation [x] Patient assessment, examination and intervention [x] Documentation [x] Medication orders and management Coding Level of Care Code Acute Podiatric Medicine Doctor for g Fwd Exam Detailed Diagnoses Pneumonia J18.9 Respiratory failure with hypoxia and hypercapnia J96.91; J96.92 Acute kidney injury superimposed on CKD N17.9; N18.9 Sepsis A41.9
--- NOTE | 2022-01-18 14:23 | PC.SOCIAL ---
IMM Updated Updated pt's significant other, Cindy on IMM. no questions voiced. Provided pt a copy. Initialed, dated, & timed copy in chart.
--- NOTE | 2022-01-18 14:46 | PC.NURSE ---
Patient extubated to 3LNC at 1438 by RT Elena, myself, and Dr. Florence at bedside. Family in waiting area. No complications.
[2022-01-18] MEDS: levofloxacin-dextrose 5 % 750 MG/150 ML PREMIX 100 MG IV (20:45)
[2022-01-18] MEDS: acetaminophen 325 mg Tablet 650 MG PO (20:46)
--- NOTE | 2022-01-18 22:14 | XRR_ITS ---
PROCEDURE INFORMATION: Exam: XR Chest Exam date and time: 01/18/2022 10:29 PM Age: 66 years old Clinical indication: Shortness of breath; Patient HX: Continued SOB post extubation. TECHNIQUE: Imaging protocol: XR of the chest. Views: 1 view. COMPARISON: CR (CHEST, ) 01/17/2022 9:52 AM FINDINGS: Tubes, catheters and devices: Previously noted endotracheal tube and nasogastric tube have been removed. Right central line is unchanged. Lungs: Low lung volumes bilaterally. Pulmonary venous congestion and increased interstitial markings, suggesting mild fluid overload/CHF. Mild atelectasis versus early infiltrates at the lung bases. Pleural spaces: Small bilateral pleural effusions. Heart/Mediastinum: Mild cardiomegaly is noted. Vasculature: The aorta is atherosclerotic. No aortic aneurysm. Bones/joints: Unremarkable. Soft tissues: Metallic foreign bodies overlie the right hemithorax. XR/XR chest 1V portable [id number] IMPRESSION: 1. Previously noted endotracheal tube and nasogastric tube have been removed. 2. Mild cardiomegaly is noted. 3. Low lung volumes bilaterally. Pulmonary venous congestion and increased interstitial markings, suggesting mild fluid overload/CHF. 4. Mild atelectasis versus early infiltrates at the lung bases. 5. Small bilateral pleural effusions. 6. There is no interval change from the prior examination.
[2022-01-18] MEDS: morphine 4 mg/mL SDV 1 mL 1 MG IVP (22:21)
[2022-01-18 23:08] LABS: NT Pro B Type Natriuretic Pept 480 pg/mL (0-125)
[2022-01-18] MEDS: dexmedeTOMIDine 0.9 % NaCL 400 MCG/100 ML PREMIX 12 MCG IV (23:29)
[2022-01-18 23:35] LABS: ABG PCO2 45.7 mmHg (35-45); ABG PH Result 7.42 (7.35-7.45); Alveolar-Arterial Oxygen Gradi 0.2 mmHg (5-10); Arterial Blood Gas Hematocrit 33.1 % (42-52); Base Excess ABG 4.5 mmol/L (-2.0-2.0); Blood Gas Allen Test Pos; Blood Gas Sample Site Radial, right; Blood Gas Sample Type Arterial; Carboxyhemoglobin 0.8 %THgb (0.4-20.1); HCO3 ABG 29.7 mmol/L (22-26); HGB O2 Sat 95.4 % (95-100); Ionized Calcium Level - ABG 1.2 mmol/L (1.1-1.4); Oxygen Device NC; Oxygen Saturation ABG 97.2; PO2 ABG 90.2 mmHg (80.0-100.0); Potassium Level - ABG 3.7 mmol/L (3.5-5.0); Total Hemoglobin 10.8 g/dL (14-18)
[2022-01-19] VITALS (84 sets, daily range): BP systolic 91–131; BP diastolic 50–87; PULSE 70–102; RESP 18–31; TEMP 36.3–37.1; O2SAT 83–100; BMI 31.7
--- NOTE | 2022-01-19 00:01 | PC.NURSE ---
Addendum entered by Cristal Denis RN 01/19/22 00:05: Witnessed 105 ml Fentanyl waste Original Note: Wasted 105 ml of Fentanyl witness with Cristal LAU
[2022-01-19] MEDS: ipratropium-albuterol 3 mL Neb INHALATION ×6 (03:22→23:18)
[2022-01-19 04:09] LABS: Glucose Point of Care 113 mg/dL (70-110)
[2022-01-19] MEDS: ondansetron 2 mg/ML SDV 2 mL 4 MG IVP ×4 (04:09→21:47)
[2022-01-19] MEDS: dexmedeTOMIDine 0.9 % NaCL 400 MCG/100 ML PREMIX 12 MCG IV (04:32)
[2022-01-19 05:13] LABS: Basophils # 0.1 10^3/uL (0.0-0.1); Basophils % 0.7 %; Eosinophils # 0.3 10^3/uL (0.0-0.8); Eosinophils % 2.1 %; Hematocrit 35.3 % (42.0-52.0); Hemoglobin 10.9 g/dL (11.7-16.6); Lymphocytes # 1.2 10^3/uL (0.8-4.8); Lymphocytes % 8.5 %; Mean Corpuscular HGB Conc 30.9 g/dL (30.0-36.0); Mean Corpuscular Hemoglobin 27.5 pg (28.0-34.0); Mean Corpuscular Volume 89.1 fl (80-94); Mean Platelet Volume 9.7 fL (7.4-10.4); Monocytes # 1.2 10^3/uL (0.2-0.9); Monocytes % 8.6 %; Neutrophils # 9.73 10^3/uL (1.8-7.7); Neutrophils % 69.3 %; Nucleated Red Blood Cells % 0 %; Platelet Count 385 10^3/cmm (130-400); Red Blood Count 3.96 10^6/uL (4.1-5.3); Red Cell Distribution Width 15.4 % (12.1-15.1)
[2022-01-19 05:32] LABS: Slide Review Slide Review Perform
[2022-01-19 05:36] LABS: Anion Gap 15.8 (5-19); Blood Urea Nitrogen 20 mg/dL (8-23); Calcium 8.8 mg/dL (8.5-10.5); Carbon Dioxide 28 mmol/L (22-29); Chloride 102 mmol/L (98-107); Glomerular Filtration Rate 165.4 mL/min (90-130); Glucose 127 mg/dL (65-115); Osmolality Calculated 298 mOsm/kg (285-295); Potassium 3.8 mmol/L (3.5-5.1); Sodium 142 mmol/L (136-145)
[2022-01-19] MEDS: heparin 5,000 unit/mL INJ 1 mL 5000 UNIT SUBCUT ×2 (06:10→17:13)
[2022-01-19] MEDS: piperacillin-tazobactam 3.375 GM in sodium chloride 0.9% (plus) 50 ML IV ×2 (07:33→15:01)
--- NOTE | 2022-01-19 07:48 | XR_ITS ---
WS: [id number] ABDOMEN 1 VIEW(S) HISTORY: distention COMPARISON: 01/14/2022 Marked increased amount of air in the stomach. There are centrally dilated small bowel loops. Less ai r within the colon. Distal colon contains no air. Although no focal transition point is identified th angelina findings are suspicious for an obstruction. No bone abnormality. XR/XR abdomen 1V* [id number] IMPRESSION: 1. Marked gaseous distention of the stomach and proximal small bowel. Decrease d air throughout the colon. Suspicious for a moderate obstruction. Transition p oint not identified but probably distal small bowel. Findings have progressed s alejandra 01/14/2022. Notified Danielito Florence MD at 01/19/2022 8:09 AM.
[2022-01-19] MEDS: metoclopramide 5 mg/mL SDV 2 mL IVP (07:51)
--- NOTE | 2022-01-19 08:25 | XRR_ITS ---
PROCEDURE INFORMATION: Exam: XR Chest Exam date and time: 01/19/2022 8:31 AM Age: 66 years old Clinical indication: Device placement; Ng tube; Additional info: Ng tube insertion TECHNIQUE: Imaging protocol: XR of the chest. Views: 1 view. Total images: 1 COMPARISON: CR (CHEST, ) 01/18/2022 10:29 PM FINDINGS: Tubes, catheters and devices: Enteric tube is seen with the tip in the body of the stomach. A right internal jugular central venous catheter is present, with its tip overlying the region of the right atrium and unchanged from prior exam. Lungs: Stable bilateral pleuroparenchymal disease. Pleural spaces: No pneumothorax. Heart/Mediastinum: Heart is enlarged but stable when compared to the prior exam. Vasculature: Atherosclerosis is evident. Bones/joints: Osseous structures are unchanged from the prior exam. XR/XR chest 1V portable [id number] IMPRESSION: 1. Enteric tube is seen with the tip in the body of the stomach. 2. Heart is enlarged but stable when compared to the prior exam. 3. Stable bilateral pleuroparenchymal disease.
[2022-01-19] MEDS: FUROsemide 10 mg/mL SDV 4mL 20 MG IVP (08:39)
--- NOTE | 2022-01-19 09:15 | P.CONIM_ITS ---
Providers/Reason For Consult Consulting Physician/Specialty*: General Surgery Beny Ventura MD Reason for Consult*: Possible small bowel obstruction. Attending Physician: Danielito Florence MD Primary Care Provider: Joe Levy DO History of Present Illness History of Present Illness 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 is a 66 year old male recently admitted with sepsis and pneumonia. The patient was intubated and had an orogastric tube. He was recently extubated and his orogastric tube was removed. He started having some vomiting issues and a plain film of the abdomen was done. This was apparently read as consistent with a small bowel obstruction so a nasogastric tube was placed. The patient says his abdomen feels much better since that was done and he is not having any more vomiting. He says he has continued to pass flatus, however, the last time was only about 30 minutes ago. Review of Systems General: Reports: 10 or more systems reviewed and unremarkable except in HPI and below GI: Reports: vomiting; Denies: abdominal pain Medications/Allergies Home Medications Medication Instructions Recorded Confirmed Last Taken Type hydrocodone 7.5 mg-acetaminophen 1 tab PO PRN PRN 01/13/22 01/13/22 01/13/22 08:00 History 325 mg tablet NOT PTS RX SEE PHARM Allergies Allergy/AdvReac Type Severity Reaction Status Date / Time Unable to Assess Allergy Verified 01/13/22 15:54 Current Medications Generic Name Dose Route Start Last Admin Trade Name Freq PRN Reason Stop Dose Admin Acetaminophen 650 mg 01/13/22 16:54 01/18/22 20:46 Acetaminophen 325 Mg Tablet PO 650 mg Q6H PRN Administration Mild/Mod Pain Or Temp >/= 101 Al Hydrox/Mg Hydrox/Simethicone 30 ml 01/19/22 08:15 01/19/22 08:33 Sudw-Vkp-Wnmkvjpay-Nida 30 Ml Udc PO Not Given Q6H KATARZYNA Albuterol/Ipratropium 3 ml 01/14/22 00:00 01/19/22 08:38 Ipratropium-Albuterol 3 Ml Neb INHALATION 3 ml Q4H.RESPIRATORY KATARZYNA Administration Heparin Sodium (Porcine) 5,000 unit 01/13/22 18:00 01/19/22 06:10 Heparin 5,000 Unit/Ml Inj 1 Ml SUBCUT 5,000 unit Q12H KATARZYNA Administration Propofol 1,000 mg in 100 mls @ 0 mls/hr 01/13/22 15:15 01/18/22 13:38 Diprivan IV 0 mcg/kg/min .Q0M KATARZYNA 0 mls/hr Titration Protocol Per Protocol Fentanyl 2,500 mcg/ Sodium 250 mls @ 0 mls/hr 01/13/22 15:30 01/19/22 00:00 Chloride IV Infused .Q0M KATARZYNA Titration Protocol Per Protocol Midazolam HCl 100 mg/ Sodium 100 mls @ 0 mls/hr 01/13/22 15:30 01/15/22 11:00 Chloride IV 0 mg/hr .Q0M KATARZYNA 0 mls/hr Titration Protocol Per Protocol Piperacillin Sod/Tazobactam 50 mls @ 12.5 mls/hr 01/13/22 23:30 01/19/22 07:33 Sod 3.375 gm/ Sodium Chloride IV 12.5 mls/hr Q8H KATARZYNA Administration Protocol Norepinephrine Bitartrate 8 mg 508 mls @ 0 mls/hr 01/14/22 09:30 01/19/22 06:20 / Dextrose IV Infused .Q0M KATARZYNA Titration Protocol Per Protocol Levofloxacin/Dextrose 750 mg in 150 mls @ 100 mls/hr 01/15/22 19:45 01/18/22 22:15 Levaquin-D5w IV Infused Q24H KATARZYNA Infusion Protocol Ondansetron HCl 4 mg 01/13/22 16:54 01/19/22 04:09 Ondansetron 2 Mg/Ml Sdv 2 Ml IVP 4 mg Q8H PRN Administration vomiting, or N/V if npo PFSH Acute PFSH: Medical History Chronic kidney disease COPD (chronic obstructive pulmonary disease) Social History Smoking and tobacco status: current every day smoker Alcohol intake: unknown Vitals/I&O/Wt Last Vital Signs Temp 97.9 F 01/19/22 05:54 Pulse 89 01/19/22 08:49 Resp 18 01/19/22 08:38 BP 112/77 01/19/22 05:00 Pulse Ox 94 01/19/22 08:38 01/18/22 01/19/22 01/19/22 22:59 06:59 14:59 Intake Total 1243.608 / 3067.465 143.366 / 3067.465 Output Total 1325 / 2925 400 / 2925 Balance -81.392 / 142.465 -256.634 / 142.465 Weight last 48 hrs Weight 209 lb Weight 212 lb 11.2 oz Physical Exam Narrative: The patient was encountered in his room in the intensive care unit. He has a nasogastric tube in place. He does not appear to be in any distress. The pupils are equal. No carotid bruits are heard. The lungs are clear ante riorly. The heart is regular. The abdomen is moderately obese but is soft and nontender. Bowel sounds are hypoactive. No masses are palpated. The extremities reveal no significant edema. Neurologically the patient appears to be grossly intact. Urinary Catheter Management: Mcfadden: Cath Placed During This Visit: yes Reason for Continuing Indwelling Catheter: Accurate Measurement of Urinary Output in Critically Ill Patients Urinary Catheter Date of Insertion: 01/13/22 Urinary Catheter Time of Insertion: 14:30 Data : 01/19/22 04:33 01/19/22 04:33 Micro: Microbiology 01/13/22 21:05 Blood Culture - Final Blood NO GROWTH AFTER 5 DAYS 01/13/22 16:48 Blood Culture - Final Blood NO GROWTH AFTER 5 DAYS KUB: Radiologist's impression: Abdominal x-ray 01/19/2022 IMPRESSION: ? 1.? Marked gaseous distention of the stomach and proximal small bowel. Decreased air throughout the colon. Suspicious for a moderate obstruction. Transition point not identified but probably distal small bowel. Findings have progressed since 01/14/2022. A&P Assessment and plan (1) Ileus: I disagree with the assessment of a small bowel obstruction. While he has some mildly dilated loops of small bowel and a significantly dilated stomach, the majority of air on his KUB this morning is colonic air, not small bowel air. In addition, the patient continues passing flatus. He was wondering if we could remove his nasogastric tube. I told him that I would encourage leaving it in at least today and see if things sweet pickle maker so that we can take it out safely without much of a worry of having the reinserted. He seems agreeable Status: Acute Consult Attestations Medical Necessity Statement: See admitting service's notation. Coding Level of Care Code Acute Counselor Camp for Chg Fwd Diagnoses Ileus K56.7
--- NOTE | 2022-01-19 10:04 | PC.NURSE ---
Patient can correctly answer all orientation questions correctly, person, place, time, and situation. HOwever, patient appears to have some underlying confusion. Repeatedly asking the same questions.
[2022-01-19] MEDS: sodium chloride 0.9% 1,000 ML 50 ML IV (13:03)
[2022-01-19 13:04] LABS: Glucose Point of Care 112 mg/dL (70-110)
--- NOTE | 2022-01-19 13:53 | P.PN_ITS ---
Subjective Subjective: Patient was having significant nausea as well as vomiting today.He is still passing gas, no BM. Currently saturating well on 5/6 Ls oxygen via NC. Medications: Medication Review Details: Generic Name Dose Route Start Last Admin Trade Name Jennifer PRN Reason Stop Dose Admin Albuterol/Ipratrop ium 3 ml 01/14/22 00:00 01/14/22 15:09 Ipratropium-Albu terol 3 Ml Neb INHALATION 3 ml Q4H.RESPIRATORY S CH Administration Heparin Sodium (Po rcine) 5,000 unit 01/13/22 18:00 01/14/22 06:34 Heparin 5,000 Un it/Ml Inj 1 Ml SUBCUT 5,000 unit Q12H KATARZYNA Administration Propofol 1,000 mg in 100 m ls @ 0 mls/hr 01/13/22 15:15 01/13/22 15:50 Diprivan IV 0 mcg/kg/min .Q0M KATARZYNA 0 mls/hr Titration Protocol Per Protocol Fentanyl 2,500 mcg / Sodium 250 mls @ 0 mls/h r 01/13/22 15:30 01/14/22 03:08 Chloride IV 100 mcg/hr .Q0M KATARZYNA 10 mls/hr Titration Protocol Per Protocol Midazolam HCl 100 mg/ Sodium 100 mls @ 0 mls/h r 01/13/22 15:30 01/14/22 03:08 Chloride IV 3 mg/hr .Q0M KATARZYNA 3 mls/hr Titration Protocol Per Protocol Sodium Chloride 1,000 mls @ 125 m ls/hr 01/13/22 17:00 01/14/22 13:36 Sodium Chloride 0.9% IV 125 mls/hr .Q8H KATARZYNA Administration Piperacillin Sod/T azobactam 50 mls @ 12.5 mls /hr 01/13/22 23:30 01/14/22 15:14 Sod 3.375 gm/ So dium Chloride IV 12.5 mls/hr Q8H KATARZYNA Administration Protocol Vancomycin HCl 1,0 00 mg/ 250 mls @ 250 mls /hr 01/13/22 20:30 01/13/22 20:55 Sodium Chloride IV Infused Q36H KATARZYNA Infusion Protocol Norepinephrine Bit artrate 8 mg 508 mls @ 0 mls/h r 01/14/22 09:30 01/14/22 09:58 / Dextrose IV 10 mcg/min .Q0M KATARZYNA 38.1 mls/hr Administration Protocol Per Protocol Vitals/I&O/Wt Last Vital Signs Temp 97.7 F 01/19/22 07:45 Pulse 102 H 01/19/22 11:34 Resp 18 01/19/22 11:30 BP 125/71 01/19/22 10:00 Pulse Ox 94 01/19/22 11:30 01/18/22 01/19/22 01/19/22 22:59 06:59 14:59 Intake Total 1243.608 / 2924.099 143.366 / 3067.465 130.0 / 130.0 Output Total 1325 / 2525 400 / 2925 2200 / 2200 Balance -81.392 / 399.099 -256.634 / 142.465 -2070.0 / -2070.0 Weight last 48 hrs Weight 94.801 kg Weight 96.479 kg Physical Exam Narrative: Is intubated sedated Const: COMMON NORMALS: patient oriented x3 HENMT: COMMON NORMALS: normocephalic and atraumatic HEAD & SCALP: normocephalic and atraumatic Chest: COMMONS NORMALS: normal inspection of the chest and normal palpation of entire chest wall CHEST: Yes Symmetrical chest wall rise Resp: COMMON NORMALS: normal respiratory effort, No retractions, No use of accessory muscles and clear to auscultation bilaterally EFFORT & INSPECTION: Yes symmetric chest movement AUSCULTATION: clear to auscultation bilaterally OTHER: Coarse Breath sounds B/L Cardio: COMMON NORMALS: regular rate, regular rhythm, S1 normal heart sound present, S2 normal heart sound present, No gallops present (Cardio), No murmurs present (Cardio), No rub (Cardio) and Peripheral pulses 2+ throughout RATE: regular rate RHYTHM: regular rhythm HEART SOUNDS: S1 normal heart sound present and S2 normal heart sound present PERIPHERAL PULSES: Peripheral pulses 2+ throughout GI: COMMON NORMALS: Normal to inspection, nondistended, normoactive bowel sounds present, Soft to palpation, non-tender, No hepatosplenomegaly present and no masses AUSCULTATION: Yes normoactive bowel sounds PALPATION: Yes Soft to palpation and Yes No hepatosplenomegaly present RECTAL EXAM: Yes deferred Extremity: COMMON NORMALS: no clubbing, cyanosis or edema and no pedal edema Neuro: COMMON NORMALS: patient oriented x3 Urinary Catheter Management: Mcfadden: Cath Placed During This Visit: yes Reason for Continuing Indwelling Catheter: Accurate Measurement of Urinary Output in Critically Ill Patients Urinary Catheter Date of Insertion: 01/13/22 Urinary Catheter Time of Insertion: 14:30 Data : 01/19/22 04:33 01/19/22 04:33 Micro: Microbiology 01/13/22 21:05 Blood Culture - Final Blood NO GROWTH AFTER 5 DAYS 01/13/22 16:48 Blood Culture - Final Blood NO GROWTH AFTER 5 DAYS A&P Assessment and plan (1) Pneumonia: Status: Acute (2) Respiratory failure with hypoxia and hypercapnia: Status: Acute (3) Acute kidney injury superimposed on CKD: Status: Acute (4) Sepsis: Status: Acute Plan 66 year old male with no significant PMH came in c/o worsening SOB for the last 7 days, as well has experienced one episode of fever yesterday,he was also experiencing recurrent vomiting for the last 2 days #Septic shock 2/2 PNA: Patient came in with sob, fever, cough, xary chest has infiltrates, aspiration PNA is a concern, given recurrent vomiting for the last 2days.He is hypotensive. Current plan is institute sepsis bundle. Blood culture : NTD MRSA PCR : Negative Sputum Gram stain and culture: Streptococcus pneumonia 2D Echo : Normal LV size and systolic function with EF of 64%, mildly increased LV size , mild TR. Urine Culture Monitor Xray chest Monitor ABG Follow up repeat lactic acid : 2.3 Follow Repeat Procalcitonin: Was on Vancomycin was discontinued Continue zosyn and levofloxacin to complete 10-day course of antibiotics Ac Hypoxic and Hypercapnic R/F : 2/2 PNA Was on Mechanical Ventilation. Status post extubation on 01/18. DUO NEBS Plan as above JUANITA v/s JUANITA ON CKD : Likely prerenal JUANITA secondary to volume depletion: Resolved Admission SCR : 3.5 Baseline SCR Unknown Current serum creatinine: 0.6 Follow Urine Random Na and CR Renal U/S : Monitor BMP Continue I.V Hydration with Ns @ 125 cc/hr Monitor Intake and output Possible renal Consult #Ileus : Xray Abdomen : Marked gaseous distention of the stomach and proximal small bowel. Decreased air throughout the colon. Suspicious for a moderate obstruction. Transition point not identified but probably distal small bowel. Surgery is of the opinion that is at best Ileus and not obstruction. N.G Tube at LIS Zofran Continue Gentle I.V Hydration with Ns@50 cc /hr Appreciate Surgery Input. # Code Status :Full Code #DVT PPX: On Heparin Attestations Medical Necessity Statement*: Patient needs to be in hospital for management of above defined problems. Time Spent in Patient Care: Greater than 35 minutes (>than 50% of time spent in counselling and/or direct pt care on unit) . Critical Care Time: The high probability of a clinically significant, sudden or life threatening deterioration of the patient's [] system(s) required my full and direct attention, intervention and personal management. The critical care time is as shown. This time is in addition to time spent performing any reported procedures but includes the following: [x] Data and vital sign review and interpretation [x] Patient assessment, examination and intervention [x] Documentation [x] Medication orders and management Critical Care Time (min): 45 Coding Level of Care Code Acute Genetics Physician for g Fwd Exam Detailed Diagnoses Pneumonia J18.9 Respiratory failure with hypoxia and hypercapnia J96.91; J96.92 Acute kidney injury superimposed on CKD N17.9; N18.9 Sepsis A41.9
[2022-01-19] MEDS: alum-mag-hydroxide-sime 30 mL UDC PO (15:01)
--- NOTE | 2022-01-19 18:42 | PC.NURSE ---
Shift SUmary: Uneventful shift. Patient has an ileus. An NG tube was started and set to intermittent suction and patient placed NPO. Patient was up to the commode once today and passed a lot of gas, bowel movement consisted of about 100mL of clear mucus like stool. Patient was up to the chair for the majority of the day.
[2022-01-19] MEDS: dexmedeTOMIDine 0.9 % NaCL 400 MCG/100 ML PREMIX IV (19:18)
[2022-01-19] MEDS: levofloxacin-dextrose 5 % 750 MG/150 ML PREMIX 100 MG IV (20:16)
[2022-01-20] VITALS (73 sets, daily range): BP systolic 98–136; BP diastolic 62–81; PULSE 68–98; RESP 16–92; TEMP 36.4–37.1; O2SAT 22–100
[2022-01-20] MEDS: piperacillin-tazobactam 3.375 GM in sodium chloride 0.9% (plus) 50 ML IV ×4 (00:09→23:31)
[2022-01-20] MEDS: ipratropium-albuterol 3 mL Neb INHALATION ×5 (03:00→23:32)
[2022-01-20] MEDS: heparin 5,000 unit/mL INJ 1 mL 5000 UNIT SUBCUT ×2 (05:11→17:22)
[2022-01-20] MEDS: ondansetron 2 mg/ML SDV 2 mL 4 MG IVP ×4 (05:11→23:31)
[2022-01-20] MEDS: sodium chloride 0.9% 1,000 ML 50 ML IV (05:11)
--- NOTE | 2022-01-20 06:34 | P.PN_ITS ---
Subjective Subjective: The patient says he feels well. He would like to get rid of his nasogastric tube. He does not think he is passing quite as much flatus now, however. Vitals/I&O/Wt Last Vital Signs Temp 98.8 F 01/20/22 03:00 Pulse 85 01/20/22 05:42 Resp 21 H 01/20/22 04:00 BP 136/81 01/20/22 04:00 Pulse Ox 94 01/20/22 04:00 01/19/22 01/19/22 01/20/22 14:59 22:59 06:59 Intake Total 130.0 / 1448.261 420 / 1448.261 898.261 / 1448.261 Output Total 2200 / 4150 1550 / 4150 400 / 4150 Balance -2070.0 / -2701.739 -1130 / -2701.739 498.261 / -2701.739 Weight last 48 hrs Weight 209 lb Physical Exam Narrative: There is quite a bit of fluid in the nasogastric tube canister, but the patient has several cups of ice chips and water sit around him but admits he has been taking in quite a bit of this. His abdomen reveals minimal tenderness. Urinary Catheter Management: Mcfadden: Cath Placed During This Visit: yes, but has since been removed by the nurse Reason for Continuing Indwelling Catheter: Accurate Measurement of Urinary Output in Critically Ill Patients Urinary Catheter Date of Insertion: 01/13/22 Urinary Catheter Time of Insertion: 14:30 Date Urinary Catheter Removed: 01/20/22 Time Urinary Catheter Discontinued: 04:30 Data : 01/19/22 04:33 01/19/22 04:33 A&P Assessment and plan (1) Ileus: I disagree with the assessment of a small bowel obstruction. While he had some mildly dilated loops of small bowel and a significantly dilated stomach, the majority of air on his KUB was colonic air, not small bowel air. In addition, the patient continues passing flatus, just not quite as much as yesterday when I talked him. I told the patient we would clamp his NG tube and see how he does. If he worsens then we will hook it back up, otherwise we may be able do get rid of it later today. Status: Acute Attestations Medical Necessity Statement*: See admitting service's notation. Coding Level of Care Code Acute Extractor Loader And Unloader for Chg Fwd Diagnoses Ileus K56.7
--- NOTE | 2022-01-20 10:07 | PC.NURSE ---
Ambulated patient. Patient walked about 10 feet with a walker. Oxygen saturation stayed in the low 90's on 6L NC. Patient reported feeling week and unable to continue much further so we stopped at 10 feet. Patient felt the urge to have a bowel movement after ambulation, but was only able to pass gas.
[2022-01-20] MEDS: dexmedeTOMIDine 0.9 % NaCL 400 MCG/100 ML PREMIX 9.48 MCG IV ×2 (10:19→20:18)
--- NOTE | 2022-01-20 10:26 | PC.SOCIAL ---
IMM Update pg 2 of IMM updated and reviewed w/ patient. Copy provided. Copy in chart updated.
--- NOTE | 2022-01-20 10:51 | PC.CHAP ---
Pastoral Care Encounter/Spiritual Assessment Type of Contact [] Declined print color matcher visit [] Patient/Family/Request visit [] Outpatient visit [] Follow-up visit [] Physician referral [] Code/Alert [x] Routine visit [] Staff referral [] Actively dying [] Patient sleeping [] Family support [] [] Out of room [] Palliative care [] [] Receiving care in room [] Pre-surgical visit [] Trauma [] Long length of stay [x] ICU visit [] Other: Relational/Emotional Strength [] Patient feels connected with others/family/visitors/staff [] Distress [] Loneliness/isolation [] Abandonment Spirituality of Patient [] Person of Katlyn [] Attends Sabianism of their [place] [] Believes in Prayer [] Reads Bible or Amish materials [] There are Spiritual issues to be addressed 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 Interventions [x] Prayer [x] Active listening [x] Non-anxious presence [x] Spiritual/emotional support [] Crisis/trauma care [] Spiritual counseling [] Bereavement support [] Provided bereavement packet [] Provided Bible/devotional materials [] Provided toy/stuffed animal, coloring book to patient or family member [] Provided Communion [] Anointing/[place] [] Salvation [x] Completed spiritual assessment [] Other: Impact on Illness or Injury [] Angry [] Fearful [] Anxious [] Often cries [] Exhaustion [] Unable to work [] Unable to attend gnosticism [] Unable to walk/stand [] Unable to read [] Unable to drive [] Unable to eat/drink [] Unable to sleep [] Unable to be with family [] Patient intubated [] Other: Summary patient setting up in chair... chaplains first encounter with patient awake... Time spent with patient 10 min
--- NOTE | 2022-01-20 11:21 | P.PN_ITS ---
Subjective Subjective: Patient is currently passing flatus, no BM, N.G Tube to LIS. Medications: Medication Review Details: Generic Name Dose Route Start Last Admin Trade Name Jennifer PRN Reason Stop Dose Admin Albuterol/Ipratrop ium 3 ml 01/14/22 00:00 01/14/22 15:09 Ipratropium-Albu terol 3 Ml Neb INHALATION 3 ml Q4H.RESPIRATORY S CH Administration Heparin Sodium (Po rcine) 5,000 unit 01/13/22 18:00 01/14/22 06:34 Heparin 5,000 Un it/Ml Inj 1 Ml SUBCUT 5,000 unit Q12H KATARZYNA Administration Propofol 1,000 mg in 100 m ls @ 0 mls/hr 01/13/22 15:15 01/13/22 15:50 Diprivan IV 0 mcg/kg/min .Q0M KATARZYNA 0 mls/hr Titration Protocol Per Protocol Fentanyl 2,500 mcg / Sodium 250 mls @ 0 mls/h r 01/13/22 15:30 01/14/22 03:08 Chloride IV 100 mcg/hr .Q0M KATARZYNA 10 mls/hr Titration Protocol Per Protocol Midazolam HCl 100 mg/ Sodium 100 mls @ 0 mls/h r 01/13/22 15:30 01/14/22 03:08 Chloride IV 3 mg/hr .Q0M KATARZYNA 3 mls/hr Titration Protocol Per Protocol Sodium Chloride 1,000 mls @ 125 m ls/hr 01/13/22 17:00 01/14/22 13:36 Sodium Chloride 0.9% IV 125 mls/hr .Q8H KATARZYNA Administration Piperacillin Sod/T azobactam 50 mls @ 12.5 mls /hr 01/13/22 23:30 01/14/22 15:14 Sod 3.375 gm/ So dium Chloride IV 12.5 mls/hr Q8H KATARZYNA Administration Protocol Vancomycin HCl 1,0 00 mg/ 250 mls @ 250 mls /hr 01/13/22 20:30 01/13/22 20:55 Sodium Chloride IV Infused Q36H KATARZYNA Infusion Protocol Norepinephrine Bit artrate 8 mg 508 mls @ 0 mls/h r 01/14/22 09:30 01/14/22 09:58 / Dextrose IV 10 mcg/min .Q0M KATARZYNA 38.1 mls/hr Administration Protocol Per Protocol Vitals/I&O/Wt Last Vital Signs Temp 98.3 F 01/20/22 08:15 Pulse 81 01/20/22 10:00 Resp 19 H 01/20/22 10:00 BP 115/77 01/20/22 10:00 Pulse Ox 100 01/20/22 10:00 01/19/22 01/20/22 01/20/22 22:59 06:59 14:59 Intake Total 420 / 550.0 898.261 / 1448.261 58.406 / 58.406 Output Total 1550 / 3750 400 / 4150 175 / 175 Balance -1130 / -3200.0 498.261 / -2701.739 -116.594 / -116.594 Weight last 48 hrs Weight 89.131 kg Weight 94.801 kg Physical Exam Const: COMMON NORMALS: patient oriented x3 HENMT: COMMON NORMALS: normocephalic and atraumatic HEAD & SCALP: normocephalic and atraumatic Chest: COMMONS NORMALS: normal inspection of the chest and normal palpation of entire chest wall CHEST: Yes Symmetrical chest wall rise Resp: COMMON NORMALS: normal respiratory effort, No retractions, No use of accessory muscles and clear to auscultation bilaterally EFFORT & INSPECTION: Yes symmetric chest movement AUSCULTATION: clear to auscultation bilaterally OTHER: Coarse Breath sounds B/L Cardio: COMMON NORMALS: regular rate, regular rhythm, S1 normal heart sound present, S2 normal heart sound present, No gallops present (Cardio), No murmurs present (Cardio), No rub (Cardio) and Peripheral pulses 2+ throughout RATE: regular rate RHYTHM: regular rhythm HEART SOUNDS: S1 normal heart sound present and S2 normal heart sound present PERIPHERAL PULSES: Peripheral pulses 2+ throughout GI: COMMON NORMALS: Normal to inspection, nondistended, normoactive bowel sounds present, Soft to palpation, non-tender, No hepatosplenomegaly present and no masses AUSCULTATION: Yes normoactive bowel sounds PALPATION: Yes Soft to palpation and Yes No hepatosplenomegaly present RECTAL EXAM: Yes deferred Extremity: COMMON NORMALS: no clubbing, cyanosis or edema and no pedal edema Neuro: COMMON NORMALS: patient oriented x3 Urinary Catheter Management: Mcfadden: Cath Placed During This Visit: yes, but has since been removed by the nurse Reason for Continuing Indwelling Catheter: Accurate Measurement of Urinary Output in Critically Ill Patients Urinary Catheter Date of Insertion: 01/13/22 Urinary Catheter Time of Insertion: 14:30 Date Urinary Catheter Removed: 01/20/22 Time Urinary Catheter Discontinued: 04:30 Data : 01/20/22 11:39 01/20/22 11:39 A&P Assessment and plan (1) Pneumonia: Status: Acute (2) Respiratory failure with hypoxia and hypercapnia: Status: Acute (3) Acute kidney injury superimposed on CKD: Status: Acute (4) Sepsis: Status: Acute Plan 66 year old male with no significant PMH came in c/o worsening SOB for the last 7 days, as well has experienced one episode of fever yesterday,he was also experiencing recurrent vomiting for the last 2 days #Septic shock 2/2 PNA: Patient came in with sob, fever, cough, xary chest has infiltrates, aspiration PNA is a concern, given recurrent vomiting for the last 2days.He is hypotensive. Current plan is institute sepsis bundle. Blood culture : NTD MRSA PCR : Negative Sputum Gram stain and culture: Streptococcus pneumonia 2D Echo : Normal LV size and systolic function with EF of 64%, mildly increased LV size , mild TR. Urine Culture Monitor Xray chest Monitor ABG Follow up repeat lactic acid : 2.3 Follow Repeat Procalcitonin: Was on Vancomycin was discontinued Continue zosyn and levofloxacin to complete 10-day course of antibiotics Ac Hypoxic and Hypercapnic R/F : 2/2 PNA Was on Mechanical Ventilation. Status post extubation on 01/18. DUO NEBS Plan as above JUANITA v/s JUANITA ON CKD : Likely prerenal JUANITA secondary to volume depletion: Resolved Admission SCR : 3.5 Baseline SCR Unknown Current serum creatinine: 0.6 Follow Urine Random Na and CR Renal U/S : Monitor BMP Continue I.V Hydration with Ns @ 125 cc/hr Monitor Intake and output Possible renal Consult #Ileus : Xray Abdomen : Marked gaseous distention of the stomach and proximal small bowel. Decreased air throughout the colon. Suspicious for a moderate obstruction. Transition point not identified but probably distal small bowel. Surgery is of the opinion that is at best Ileus and not obstruction. N.G Tube at LIS Zofran Continue Gentle I.V Hydration with Ns@50 cc /hr Appreciate Surgery Input. # Code Status :Full Code #DVT PPX: On Heparin Attestations Medical Necessity Statement*: Patient needs to be in hospital for the management of above defined problems. 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
[2022-01-20 11:57] LABS: Basophils # 0.1 10^3/uL (0.0-0.1); Basophils % 0.5 %; Eosinophils # 0.2 10^3/uL (0.0-0.8); Eosinophils % 1.4 %; Hemoglobin 11.9 g/dL (11.7-16.6); Lymphocytes # 1.2 10^3/uL (0.8-4.8); Lymphocytes % 11.2 %; Mean Corpuscular HGB Conc 31.3 g/dL (30.0-36.0); Mean Corpuscular Hemoglobin 27.5 pg (28.0-34.0); Mean Corpuscular Volume 87.8 fl (80-94); Mean Platelet Volume 9.4 fL (7.4-10.4); Monocytes # 0.9 10^3/uL (0.2-0.9); Monocytes % 7.8 %; Neutrophils # 7.83 10^3/uL (1.8-7.7); Neutrophils % 71.3 %; Nucleated Red Blood Cells % 0 %; Platelet Count 476 10^3/cmm (130-400); Red Blood Count 4.33 10^6/uL (4.1-5.3); Red Cell Distribution Width 15.2 % (12.1-15.1)
[2022-01-20 12:21] LABS: Blood Urea Nitrogen 24 mg/dL (8-23); Calcium 8.9 mg/dL (8.5-10.5); Carbon Dioxide 35 mmol/L (22-29); Chloride 96 mmol/L (98-107); Glucose 116 mg/dL (65-115); Osmolality Calculated 295 mOsm/kg (285-295); Sodium 140 mmol/L (136-145)
[2022-01-20 12:57] LABS: Slide Review Slide Review Perform
[2022-01-20] MEDS: lidocaine 1% 5 ML in potassium chloride premix 100 ML 25 ML IV (13:56)
[2022-01-20] MEDS: lidocaine 1% 5 ML in potassium chloride premix 100 ML 50 ML IV (17:14)
--- NOTE | 2022-01-20 18:24 | PC.NURSE ---
SHift SUmmary: Uneventful shift. Patient was up to a chair for about half the day. NUrse assisted patient to ambulate into german 3 times today, about 15 feet eat time. Patient has attempted multiple times to have a bowel movement, but can only pass gas. BOwel sounds have been variable, sometimes absent, other times active in all quadrants.
[2022-01-20] MEDS: levofloxacin-dextrose 5 % 750 MG/150 ML PREMIX 100 MG IV (20:18)
[2022-01-21] VITALS (65 sets, daily range): BP systolic 82–113; BP diastolic 57–74; PULSE 61–85; RESP 14–33; TEMP 37.1; O2SAT 88–99; BMI 29.7
[2022-01-21 02:36] LABS: Basophils # 0.1 10^3/uL (0.0-0.1); Basophils % 0.7 %; Eosinophils # 0.2 10^3/uL (0.0-0.8); Eosinophils % 2.4 %; Hematocrit 37.1 % (42.0-52.0); Hemoglobin 11.7 g/dL (11.7-16.6); Lymphocytes # 1.4 10^3/uL (0.8-4.8); Lymphocytes % 15.1 %; Mean Corpuscular HGB Conc 31.5 g/dL (30.0-36.0); Mean Corpuscular Hemoglobin 27.7 pg (28.0-34.0); Mean Corpuscular Volume 87.9 fl (80-94); Mean Platelet Volume 9.3 fL (7.4-10.4); Monocytes # 0.7 10^3/uL (0.2-0.9); Monocytes % 8.1 %; Neutrophils # 6.29 10^3/uL (1.8-7.7); Neutrophils % 68.7 %; Nucleated Red Blood Cells % 0 %; Platelet Count 484 10^3/cmm (130-400); Red Blood Count 4.22 10^6/uL (4.1-5.3); Red Cell Distribution Width 14.9 % (12.1-15.1); White Blood Count 9.2 10^3/uL (4.0-10.0)
[2022-01-21 02:48] LABS: Anion Gap 12.2 (5-19); Blood Urea Nitrogen 25 mg/dL (8-23); Calcium 8.9 mg/dL (8.5-10.5); Carbon Dioxide 32 mmol/L (22-29); Chloride 98 mmol/L (98-107); Glucose 128 mg/dL (65-115); Osmolality Calculated 294 mOsm/kg (285-295); Potassium 3.2 mmol/L (3.5-5.1); Sodium 139 mmol/L (136-145)
[2022-01-21] MEDS: dexmedeTOMIDine 0.9 % NaCL 400 MCG/100 ML PREMIX 14.22 MCG IV ×3 (04:21→17:43)
[2022-01-21] MEDS: ondansetron 2 mg/ML SDV 2 mL 4 MG IVP ×4 (04:21→22:55)
[2022-01-21] MEDS: piperacillin-tazobactam 3.375 GM in sodium chloride 0.9% (plus) 50 ML IV ×3 (06:38→22:55)
[2022-01-21] MEDS: heparin 5,000 unit/mL INJ 1 mL 5000 UNIT SUBCUT ×2 (06:38→17:27)
[2022-01-21] MEDS: acetaminophen 325 mg Tablet 650 MG PO (07:31)
[2022-01-21] MEDS: ipratropium-albuterol 3 mL Neb INHALATION ×5 (07:40→23:46)
--- NOTE | 2022-01-21 08:16 | P.PN_ITS ---
Subjective Subjective: The patient is feeling well. He denies any significant abdominal pain. He says he has continued a pass flatus. He thinks his nasogastric tube may have had be hooked up one time yesterday but then got disconnected again. Vitals/I&O/Wt Last Vital Signs Temp 98.7 F 01/20/22 20:00 Pulse 69 01/21/22 07:40 Resp 18 01/21/22 07:40 BP 108/69 01/21/22 06:00 Pulse Ox 93 01/21/22 07:40 01/20/22 01/21/22 01/21/22 22:59 06:59 14:59 Intake Total 594.642 / 1041.212 338.164 / 1041.212 Output Total 300 / 875 250 / 875 Balance 294.642 / 166.212 88.164 / 166.212 Weight last 48 hrs Weight 196 lb 8 oz Physical Exam Narrative: The nasogastric tube was hooked up to suction and revealed only a small amount of water on return; the patient admits he has been drinking quite a bit of water and eating ice chips. The abdomen remained soft with minimal tenderness Urinary Catheter Management: Mcfadden: Cath Placed During This Visit: yes, but has since been removed by the nurse Reason for Continuing Indwelling Catheter: Accurate Measurement of Urinary Output in Critically Ill Patients Urinary Catheter Date of Insertion: 01/13/22 Urinary Catheter Time of Insertion: 14:30 Date Urinary Catheter Removed: 01/20/22 Time Urinary Catheter Discontinued: 04:30 Data : 01/21/22 02:25 01/21/22 02:25 A&P Assessment and plan (1) Ileus: The patient continues the pass flatus. It does not appear that he is building up a lot of fluid in his stomach with his NG clamped. He would like to get it out. We are going remove the NG tube and start him on a clear liquid diet and see how he does. Status: Acute Attestations Medical Necessity Statement*: See admitting service's notation. Coding Level of Care Code Acute Art History Instructor for [facility] Diagnoses Ileus K56.7
[2022-01-21] MEDS: sodium chloride 0.9% 1,000 ML 50 ML IV (10:45)
--- NOTE | 2022-01-21 15:22 | PC.NURSE ---
1512- Patient reported nausea and indicated urgency. Next scheduled dose of Zofran was for 1616. Dr. Florence notified and permission given to administer the 1616 scheduled Zofran- now. Order promptly followed by this nurse.
--- NOTE | 2022-01-21 15:35 | P.PN_ITS ---
Subjective Subjective: Denies any abdominal pains, passing flatus, no bowel movement yet, currently requiring minimal supplemental oxygen, NG tube has been removed.Started on clear liquid diet. Medications: Medication Review Details: Generic Name Dose Route Start Last Admin Trade Name Jennifer PRN Reason Stop Dose Admin Acetaminophen 650 mg 01/13/22 16:54 01/21/22 07:31 Acetaminophen 32 5 Mg Tablet PO 650 mg Q6H PRN Administration Mild/Mod Pain Or Temp >/= 101 Albuterol/Ipratrop ium 3 ml 01/14/22 00:00 01/21/22 11:21 Ipratropium-Albu terol 3 Ml Neb INHALATION 3 ml Q4H.RESPIRATORY S CH Administration Heparin Sodium (Po rcine) 5,000 unit 01/13/22 18:00 01/21/22 06:38 Heparin 5,000 Un it/Ml Inj 1 Ml SUBCUT 5,000 unit Q12H KATARZYNA Administration Piperacillin Sod/T azobactam 50 mls @ 12.5 mls /hr 01/13/22 23:30 01/21/22 15:02 Sod 3.375 gm/ So dium Chloride IV 12.5 mls/hr Q8H KATARZYNA Administration Protocol dexmedeTOMIDine 0. 9 % NaCL 400 mcg in 100 ml s @ 0 mls/hr 01/19/22 17:30 01/21/22 14:53 Precedex IV 0.4 mcg/kg/hr .Q0M KATARZYNA 9.48 mls/hr Titration Protocol Per Protocol Ondansetron HCl 4 mg 01/19/22 10:16 01/21/22 15:12 Ondansetron 2 Mg /Ml Sdv 2 Ml IVP 4 mg Q6H KATARZYNA Administration Vitals/I&O/Wt Last Vital Signs Temp 98.7 F 01/21/22 07:30 Pulse 74 01/21/22 14:37 Resp 19 H 01/21/22 14:15 BP 96/57 01/21/22 14:15 Pulse Ox 95 01/21/22 14:15 01/21/22 01/21/22 01/21/22 06:59 14:59 22:59 Intake Total 1338.164 / 2041.212 1046.993 / 1046.993 Output Total 250 / 875 400 / 400 Balance 1088.164 / 1166.212 646.993 / 646.993 Weight last 48 hrs Weight 89.131 kg Physical Exam Narrative: Is intubated sedated Const: COMMON NORMALS: patient oriented x3 HENMT: COMMON NORMALS: normocephalic and atraumatic HEAD & SCALP: normocephalic and atraumatic Chest: COMMONS NORMALS: normal inspection of the chest and normal palpation of entire chest wall CHEST: Yes Symmetrical chest wall rise Resp: COMMON NORMALS: normal respiratory effort, No retractions, No use of accessory muscles and clear to auscultation bilaterally EFFORT & INSPECTION: Yes symmetric chest movement AUSCULTATION: clear to auscultation bilaterally OTHER: Coarse Breath sounds B/L Cardio: COMMON NORMALS: regular rate, regular rhythm, S1 normal heart sound present, S2 normal heart sound present, No gallops present (Cardio), No murmurs present (Cardio), No rub (Cardio) and Peripheral pulses 2+ throughout RATE: regular rate RHYTHM: regular rhythm HEART SOUNDS: S1 normal heart sound present and S2 normal heart sound present PERIPHERAL PULSES: Peripheral pulses 2+ throughout GI: COMMON NORMALS: Normal to inspection, nondistended, normoactive bowel sounds present, Soft to palpation, non-tender, No hepatosplenomegaly present and no masses AUSCULTATION: Yes normoactive bowel sounds PALPATION: Yes Soft to palpation and Yes No hepatosplenomegaly present RECTAL EXAM: Yes deferred Extremity: COMMON NORMALS: no clubbing, cyanosis or edema and no pedal edema Neuro: COMMON NORMALS: patient oriented x3 Urinary Catheter Management: Mcfadden: Cath Placed During This Visit: yes, but has since been removed by the nurse Reason for Continuing Indwelling Catheter: Accurate Measurement of Urinary Output in Critically Ill Patients Urinary Catheter Date of Insertion: 01/13/22 Urinary Catheter Time of Insertion: 14:30 Date Urinary Catheter Removed: 01/20/22 Time Urinary Catheter Discontinued: 04:30 Data : 01/21/22 02:25 01/21/22 02:25 A&P Assessment and plan (1) Pneumonia: Status: Acute (2) Respiratory failure with hypoxia and hypercapnia: Status: Acute (3) Acute kidney injury superimposed on CKD: Status: Acute (4) Sepsis: Status: Acute Plan 66 year old male with no significant PMH came in c/o worsening SOB for the last 7 days, as well has experienced one episode of fever yesterday,he was also experiencing recurrent vomiting for the last 2 days #Septic shock 2/2 PNA: Patient came in with sob, fever, cough, xary chest has infiltrates, aspiration PNA is a concern, given recurrent vomiting for the last 2days.He is hypotensive. Current plan is institute sepsis bundle. Blood culture : NTD MRSA PCR : Negative Sputum Gram stain and culture: Streptococcus pneumonia 2D Echo : Normal LV size and systolic function with EF of 64%, mildly increased LV size , mild TR. Urine Culture Monitor Xray chest Monitor ABG Follow up repeat lactic acid : 2.3 Follow Repeat Procalcitonin: Was on Vancomycin and levofloxacin has been discontinued Continue zosyn to complete 10-day course of antibiotics Ac Hypoxic and Hypercapnic R/F : 2/ PNA Was on Mechanical Ventilation. Status post extubation on 01/18. DUO NEBS Plan as above JUANITA v/s JUANITA ON CKD : Likely prerenal JUANITA secondary to volume depletion: Resolved Admission SCR : 3.5 Baseline SCR Unknown Current serum creatinine: 0.6 Follow Urine Random Na and CR Renal U/S : Monitor BMP Was on I.V Hydration with Ns Monitor Intake and output Possible renal Consult #Ileus : Xray Abdomen : Marked gaseous distention of the stomach and proximal small bowel. Decreased air throughout the colon. Suspicious for a moderate obstruction. Transition point not identified but probably distal small bowel. Surgery is of the opinion that is at best Ileus and not obstruction. N.G Tube was at LIS . Removed Zofran Appreciate Surgery Input. # Code Status :Full Code #DVT PPX: On Heparin Attestations 2 Medical Necessity Statement*: Patient is still in hospital management of above defined problem. Time Spent in Patient Care: Greater than 35 minutes (>than 50% of time spent in counselling and/or direct pt care on unit) . Coding Level of Care Code Acute Automation Technologist for [facility] Fwd Diagnoses Pneumonia J18.9 Respiratory failure with hypoxia and hypercapnia J96.91; J96.92 Acute kidney injury superimposed on CKD N17.9; N18.9 Sepsis A41.9
[2022-01-21] MEDS: metoclopramide 5 mg/mL SDV 2 mL IVP (16:26)
[2022-01-21] MEDS: lactulose oral liq 20 gm/30 mL UDC PO (17:27)
[2022-01-21] MEDS: dexmedeTOMIDine 0.9 % NaCL 400 MCG/100 ML PREMIX 16.59 MCG IV (22:55)
[2022-01-22] VITALS (34 sets, daily range): BP systolic 72–137; BP diastolic 40–77; PULSE 62–97; RESP 15–30; TEMP 36.6–36.8; O2SAT 84–96
--- NOTE | 2022-01-22 | PC.NURSE ---
Patient began to c/o itching after his central line dressing was changed. No redness or swelling was observed. Dr. Brown was notified and Benadryl was ordered and administered.
[2022-01-22] MEDS: diphenhydrAMINE 25 mg Capsule PO (00:03)
[2022-01-22] MEDS: dexmedeTOMIDine 0.9 % NaCL 400 MCG/100 ML PREMIX 16.59 MCG IV (04:17)
[2022-01-22 04:31] LABS: Basophils % 0.3 %; Eosinophils # 0.2 10^3/uL (0.0-0.8); Eosinophils % 1.9 %; Hematocrit 35.2 % (42.0-52.0); Hemoglobin 11.1 g/dL (11.7-16.6); Lymphocytes # 1.5 10^3/uL (0.8-4.8); Mean Corpuscular HGB Conc 31.5 g/dL (30.0-36.0); Mean Corpuscular Hemoglobin 27.8 pg (28.0-34.0); Mean Platelet Volume 9.4 fL (7.4-10.4); Monocytes # 0.7 10^3/uL (0.2-0.9); Monocytes % 7.5 %; Neutrophils # 7.13 10^3/uL (1.8-7.7); Neutrophils % 72.7 %; Nucleated Red Blood Cells % 0 %; Platelet Count 409 10^3/cmm (130-400); Red Cell Distribution Width 14.6 % (12.1-15.1); White Blood Count 9.8 10^3/uL (4.0-10.0)
[2022-01-22 04:52] LABS: Anion Gap 9.2 (5-19); Blood Urea Nitrogen 19 mg/dL (8-23); Calcium 7.9 mg/dL (8.5-10.5); Carbon Dioxide 32 mmol/L (22-29); Chloride 100 mmol/L (98-107); Glucose 147 mg/dL (65-115); Osmolality Calculated 289 mOsm/kg (285-295); Potassium 4.2 mmol/L (3.5-5.1); Sodium 137 mmol/L (136-145)
--- NOTE | 2022-01-22 06:00 | ECG_ITS ---
[facility] Test Date: 2022-01-22 Pat Name: 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 Department: Room: ICU11 Gender: Male Monomer Recovery Supervisor: : [id number] Requested By: Danielito Florence Order Number: [id number] Les MD: Fredrick Murphy M.D. Measurements Intervals [place] Rate: 61 P: 24 OR: 173 QRS: -11 QRSD: 94 T: -8 QT: 451 QTc: 458 Interpretive Statements SINUS RHYTHM LOW QRS VOLTAGE IN PRECORDIAL LEADS [QRS DEFLECTION < 1.0 mV IN CHEST LEADS] POSSIBLE RIGHT VENTRICULAR CONDUCTION DELAY [RSR (QR) IN V1/V2] NONSPECIFIC T-WAVE ABNORMALITY Compared to ECG 01/13/2022 20:59:24 T-wave abnormality now present Sinus tachycardia no longer present Electronically Signed On 01-22-2022 17:53:05 CDT by Fredrick Murphy M.D. [id number]
[2022-01-22] MEDS: ondansetron 2 mg/ML SDV 2 mL 4 MG IVP ×4 (06:15→21:48)
[2022-01-22] MEDS: piperacillin-tazobactam 3.375 GM in sodium chloride 0.9% (plus) 50 ML IV ×2 (06:15→16:49)
[2022-01-22] MEDS: heparin 5,000 unit/mL INJ 1 mL 5000 UNIT SUBCUT ×2 (06:15→18:28)
[2022-01-22] MEDS: ipratropium-albuterol 3 mL Neb INHALATION ×4 (08:04→20:47)
--- NOTE | 2022-01-22 08:32 | PM.PN ---
Subjective Subjective: Is having breakfast with clear liquids this morning. Reports that he is overall feeling better. He states he is tolerating breakfast well. Denies any nausea, vomiting, eructation. Denies abdominal pain or discomfort. States that his breathing is doing well. States has not worn any oxygen before this admission. Vitals/I&O/Wt Last Vital Signs Temp 98.7 F 01/21/22 07:30 Pulse 67 01/22/22 08:07 Resp 16 01/22/22 08:04 BP 83/58 01/22/22 07:30 Pulse Ox 92 01/22/22 08:04 01/21/22 01/22/22 01/22/22 22:59 06:59 14:59 Intake Total 743.886 / 1790.879 239.033 / 2029.912 58.342 / 58.342 Output Total 100 / 500 300 / 800 Balance 643.886 / 1290.879 -60.967 / 1229.912 58.342 / 58.342 Weight last 48 hrs Weight 90.463 kg Weight 88.621 kg Physical Exam Const: COMMON NORMALS: no acute distress and patient oriented x3 OTHER: Eating CLD breakfast HENMT: COMMON NORMALS: oropharynx normal OTHER: Erythema, darkened eschar on each cheek under O2 cannula is protected w tape Neck/C-Spine: COMMON NORMALS: no JVD Resp: COMMON NORMALS: normal respiratory effort AUSCULTATION: crackles (Mild BL lower) Cardio: COMMON NORMALS: no JVD, regular rhythm, S1 normal heart sound present, S2 normal heart sound present and No murmurs present (Cardio) RHYTHM: regular rhythm HEART SOUNDS: S1 normal heart sound present and S2 normal heart sound present GI: COMMON NORMALS: Soft to palpation and non-tender PALPATION: Yes Soft to palpation Extremity: COMMON NORMALS: no joint enlargement and no pedal edema Neuro: COMMON NORMALS: patient oriented x3 and moves all extremities Skin: COMMON NORMALS: no rashes or lesions noted GENERAL SKIN EXAM: no rashes or lesions noted Urinary Catheter Management: Mcfadden: Cath Placed During This Visit: yes, but has since been removed by the nurse Reason for Continuing Indwelling Catheter: Accurate Measurement of Urinary Output in Critically Ill Patients Urinary Catheter Date of Insertion: 01/13/22 Urinary Catheter Time of Insertion: 14:30 Date Urinary Catheter Removed: 01/20/22 Time Urinary Catheter Discontinued: 04:30 Data : 01/22/22 04:25 01/22/22 04:25 A&P Assessment and plan (1) Hypotension: He otherwise appears to be doing well, but still resolve blood pressure, 83/88 documented this morning. He denies any to be symptomatic. No chest pain or pressure. No shortness of breath. Not lightheaded, sitting up in bed having clear liquid breakfast. Noted 01/13, normal ejection fraction,Echocardiogram mildly increased left atrial size. Mild TVR. Check TSH, serum cortisol. Status: Acute (2) Ileus: Trial of clear liquids, which appears to be tolerating so far. Add I-S States he is mobilizing with PT Status: Acute (3) Pneumonia: Continue Zosyn at this time. Wean down oxygen as tolerating. Streptococcus pneumonia Status: Acute (4) Respiratory failure with hypoxia and hypercapnia: Status: Acute (5) Acute kidney injury superimposed on CKD: Resolved. Avoid nephrotoxins. Continue to monitor blood pressure, avoid hypotension. Status: Acute (6) Sepsis: Status: Acute Plan 66 year old male with no significant PMH came in c/o worsening SOB for the last 7 days, as well has experienced one episode of fever yesterday,he was also experiencing recurrent vomiting for the last 2 days #Septic shock 2/2 PNA: Septic shock resolved, but still hypotensive as above. Ac Hypoxic and Hypercapnic R/F : 2/2 PNA Was on Mechanical Ventilation. Status post extubation on 01/18. JUANITA v/s JUANITA ON CKD : Likely prerenal JUANITA secondary to volume depletion: Resolved # Code Status :Full Code #DVT PPX: On Heparin Attestations Medical Necessity Statement*: Continued mission for assessment of management of hypotension following septic shock, pneumonia with hypoxia, ileus with trial of p.o. diet. Coding Level of Care Code Acute Vending Machine Host/Hostess for [facility] Fw Diagnoses Pneumonia J18.9 Respiratory failure with hypoxia and hypercapnia J96.91; J96.92 Acute kidney injury superimposed on CKD N17.9; N18.9 Sepsis A41.9 Hypotension I95.9 Ileus K56.7
--- NOTE | 2022-01-22 09:13 | P.PN_ITS ---
Subjective Subjective: The patient says he feels well. He had 2 bowel movements yesterday. He continues to pass flatus. He is tolerating a liquid diet. Vitals/I&O/Wt Last Vital Signs Temp 98.7 F 01/21/22 07:30 Pulse 67 01/22/22 08:07 Resp 16 01/22/22 08:04 BP 83/58 01/22/22 07:30 Pulse Ox 92 01/22/22 08:04 01/21/22 01/22/22 01/22/22 22:59 06:59 14:59 Intake Total 743.886 / 2029.912 239.033 / 2029.912 58.342 / 58.342 Output Total 100 / 800 300 / 800 Balance 643.886 / 1229.912 -60.967 / 1229.912 58.342 / 58.342 Weight last 48 hrs Weight 199 lb 7 oz Weight 195 lb 6 oz Physical Exam Narrative: Bowel sounds are present. Abdomen reveals minimal tenderness. Urinary Catheter Management: Mcfadden: Cath Placed During This Visit: yes, but has since been removed by the nurse Reason for Continuing Indwelling Catheter: Accurate Measurement of Urinary Output in Critically Ill Patients Urinary Catheter Date of Insertion: 01/13/22 Urinary Catheter Time of Insertion: 14:30 Date Urinary Catheter Removed: 01/20/22 Time Urinary Catheter Discontinued: 04:30 Data : 01/22/22 04:25 01/22/22 04:25 A&P Assessment and plan (1) Ileus: Appears to have resolved. GI soft diet. Status: Acute Attestations Medical Necessity Statement*: See admitting service's notation. Coding Level of Care Code Acute Residential Gas Heat Technician for [facility] Fwd Diagnoses Ileus K56.7
[2022-01-22 09:23] LABS: Cortisol Random 13.48 ug/dL (2.47-19.5)
[2022-01-22 09:48] LABS: Thyroid Stimulating Hormone 3.08 uIU/mL (0.27-4.20)
--- NOTE | 2022-01-22 11:50 | PC.SOCIAL ---
IMM Updated Updated pt on IMM. No questions voiced. Provided pt a copy. Initialed, dated, & timed copy in chart.
[2022-01-22] MEDS: metoclopramide 5 mg/mL SDV 2 mL IVP ×2 (12:17→19:59)
[2022-01-22] MEDS: calcium carbonate 500 mg Chew Tablet PO (19:59)
[2022-01-22] MEDS: magnesium hydroxide 30 mL UDC PO (20:00)
[2022-01-22] MEDS: hyDROXYzine 25 mg Capsule PO (22:14)
[2022-01-23] VITALS (23 sets, daily range): BP systolic 117–134; BP diastolic 62–90; PULSE 69–109; RESP 16–21; TEMP 36.6–37.1; O2SAT 90–99
[2022-01-23] MEDS: calcium carbonate 500 mg Chew Tablet PO (00:20)
[2022-01-23] MEDS: metoclopramide 5 mg/mL SDV 2 mL IVP (03:17)
[2022-01-23] MEDS: ipratropium-albuterol 3 mL Neb INHALATION ×5 (03:21→20:18)
[2022-01-23 05:12] LABS: Basophils # 0.1 10^3/uL (0.0-0.1); Basophils % 0.7 %; Eosinophils # 0.2 10^3/uL (0.0-0.8); Eosinophils % 1.3 %; Hematocrit 39.8 % (42.0-52.0); Hemoglobin 12.6 g/dL (11.7-16.6); Lymphocytes # 1.5 10^3/uL (0.8-4.8); Lymphocytes % 12.8 %; Mean Corpuscular HGB Conc 31.7 g/dL (30.0-36.0); Mean Corpuscular Hemoglobin 27.1 pg (28.0-34.0); Mean Corpuscular Volume 85.6 fl (80-94); Mean Platelet Volume 9.3 fL (7.4-10.4); Monocytes # 0.7 10^3/uL (0.2-0.9); Monocytes % 6.1 %; Neutrophils # 8.85 10^3/uL (1.8-7.7); Neutrophils % 77.3 %; Nucleated Red Blood Cells % 0 %; Platelet Count 529 10^3/cmm (130-400); Red Blood Count 4.65 10^6/uL (4.1-5.3); Red Cell Distribution Width 14.6 % (12.1-15.1); White Blood Count 11.5 10^3/uL (4.0-10.0)
[2022-01-23 05:46] LABS: Chloride 96 mmol/L (98-107); Glucose 114 mg/dL (65-115); Potassium 3.1 mmol/L (3.5-5.1); Sodium 134 mmol/L (136-145)
[2022-01-23] MEDS: ondansetron 2 mg/ML SDV 2 mL 4 MG IVP ×4 (05:59→22:39)
[2022-01-23] MEDS: piperacillin-tazobactam 3.375 GM in sodium chloride 0.9% (plus) 50 ML IV ×3 (05:59→16:22)
[2022-01-23] MEDS: heparin 5,000 unit/mL INJ 1 mL 5000 UNIT SUBCUT ×2 (05:59→18:10)
[2022-01-23 06:15] LABS: Blood Urea Nitrogen 14 mg/dL (8-23); Calcium 8.6 mg/dL (8.5-10.5); Carbon Dioxide 28 mmol/L (22-29)
[2022-01-23 06:26] LABS: Anion Gap 13.1 (5-19); Glomerular Filtration Rate 165.4 mL/min (90-130); Osmolality Calculated 279 mOsm/kg (285-295)
[2022-01-23] MEDS: potassium chloride oral liq 20 mEq/15 mL UDC 40 MEQ PO (08:40)
--- NOTE | 2022-01-23 08:47 | PM.PN ---
Subjective Subjective: Last night nursing reported that he continued have some nausea and was being treated with Zofran. He tells me this morning that he has been having heartburn and that is not unusual for him. He takes [id number] antacids at home. He said he had 2 more bowel movements yesterday and continues the pass flatus. Vitals/I&O/Wt Last Vital Signs Temp 98.7 F 01/23/22 06:00 Pulse 98 01/23/22 08:26 Resp 16 01/23/22 08:26 BP 133/71 01/22/22 18:00 Pulse Ox 92 01/23/22 08:26 01/22/22 01/23/22 01/23/22 22:59 06:59 14:59 Intake Total 240 / 1009.626 50 / 1009.626 15.208 / 15.208 Output Total 575 / 1275 200 / 1275 Balance -335 / -265.374 -150 / -265.374 15.208 / 15.208 Weight last 48 hrs Weight 194 lb Weight 199 lb 7 oz Physical Exam Narrative: Bowel sounds are present. The abdomen remains soft and nontender. Urinary Catheter Management: Mcfadden: Cath Placed During This Visit: yes, but has since been removed by the nurse Reason for Continuing Indwelling Catheter: Accurate Measurement of Urinary Output in Critically Ill Patients Urinary Catheter Date of Insertion: 01/13/22 Urinary Catheter Time of Insertion: 14:30 Date Urinary Catheter Removed: 01/20/22 Time Urinary Catheter Discontinued: 04:30 Data : 01/23/22 04:22 01/23/22 04:22 A&P Assessment and plan (1) Ileus: Appears to have resolved. I am going a start the patient on some oral Protonix. GI soft diet. Status: Acute Attestations Medical Necessity Statement*: See admitting service's notation. Coding Level of Care Code Acute Loom Checker for [facility] Diagnoses Ileus K56.7
[2022-01-23] MEDS: pantoprazole DR 40 mg Tablet PO ×2 (09:28→18:10)
--- NOTE | 2022-01-23 09:48 | PM.PN ---
Subjective Subjective: States he is doing all right. Denies nausea vomiting. Had some bowel movements yesterday. Feels ready to try to advance diet. States breathing is okay. Denies chest pain or pressure. Vitals/I&O/Wt Last Vital Signs Temp 98.7 F 01/23/22 06:00 Pulse 88 01/23/22 08:45 Resp 16 01/23/22 08:26 BP 118/90 01/23/22 08:00 Pulse Ox 92 01/23/22 08:26 01/22/22 01/23/22 01/23/22 22:59 06:59 14:59 Intake Total 240 / 959.626 50 / 1009.626 135.208 / 135.208 Output Total 575 / 1075 200 / 1275 300 / 300 Balance -335 / -115.374 -150 / -265.374 -164.792 / -164.792 Weight last 48 hrs Weight 87.997 kg Weight 90.463 kg Physical Exam Const: COMMON NORMALS: no acute distress and patient oriented x3 HENMT: COMMON NORMALS: oropharynx normal OTHER: Erythema, darkened eschar on each cheek under O2 cannula is protected w tape Neck/C-Spine: COMMON NORMALS: no JVD Resp: COMMON NORMALS: normal respiratory effort AUSCULTATION: crackles (Mild BL lower) Cardio: COMMON NORMALS: no JVD, regular rhythm, S1 normal heart sound present, S2 normal heart sound present and No murmurs present (Cardio) RHYTHM: regular rhythm HEART SOUNDS: S1 normal heart sound present and S2 normal heart sound present GI: COMMON NORMALS: Soft to palpation and non-tender PALPATION: Yes Soft to palpation Extremity: COMMON NORMALS: no joint enlargement and no pedal edema Neuro: COMMON NORMALS: patient oriented x3 and moves all extremities Skin: COMMON NORMALS: no rashes or lesions noted GENERAL SKIN EXAM: no rashes or lesions noted Urinary Catheter Management: Mcfadden: Cath Placed During This Visit: yes, but has since been removed by the nurse Reason for Continuing Indwelling Catheter: Accurate Measurement of Urinary Output in Critically Ill Patients Urinary Catheter Date of Insertion: 01/13/22 Urinary Catheter Time of Insertion: 14:30 Date Urinary Catheter Removed: 01/20/22 Time Urinary Catheter Discontinued: 04:30 Data : 01/23/22 04:22 01/23/22 04:22 A&P Assessment and plan (1) Hypotension: Blood pressure today is better. Transfer to medical floor, monitor blood pressure additionally there. Somewhat borderline cortisol level, but currently maintaining blood pressures. If becoming further hypotensive, consider stress dose steroids. Noted 01/13, normal ejection fraction,Echocardiogram mildly increased left atrial size. Mild TVR. Status: Acute (2) Ileus: Trial of GI soft diet. I-S States he is mobilizing with PT Status: Acute (3) Pneumonia: Continue Zosyn at this time. Wean down oxygen as tolerating. Streptococcus pneumonia Status: Acute (4) Respiratory failure with hypoxia and hypercapnia: Status: Acute (5) Acute kidney injury superimposed on CKD: Resolved. Avoid nephrotoxins. Continue to monitor blood pressure, avoid hypotension. Status: Acute (6) Sepsis: Status: Acute Plan 66 year old male with no significant PMH came in c/o worsening SOB for the last 7 days, as well has experienced one episode of fever yesterday,he was also experiencing recurrent vomiting for the last 2 days Hypokalemia: Replace #Septic shock / PNA: Septic shock resolved, but still hypotensive as above. Ac Hypoxic and Hypercapnic R/F : 2/ PNA Was on Mechanical Ventilation. Status post extubation on 01/18. JUANITA v/s JUANITA ON CKD : Likely prerenal JUANITA secondary to volume depletion: Resolved CM working on disposition. Home health care. # Code Status :Full Code #DVT PPX: On Heparin Attestations Medical Necessity Statement*: Continue admission for management after ileus, trial of advancement diet, additional monitoring of blood pressure with recent hypotension, borderline serum cortisol, disposition planning. Coding Level of Care Code Acute Regulatory Affairs Strategy Specialist for [facility] Fwd Diagnoses Hypotension I95.9 Ileus K56.7 Pneumonia J18.9 Respiratory failure with hypoxia and hypercapnia J96.91; J96.92 Acute kidney injury superimposed on CKD N17.9; N18.9 Sepsis A41.9
--- NOTE | 2022-01-23 12:23 | PC.NURSE ---
Report called to JUDI Shi. Patient moved to room 277-1 via wheelchair by this nurse. Belongings with patient.
--- NOTE | 2022-01-23 18:42 | PC.NURSE ---
Patient arrived to floor via wc, call light in reach, room free of clutter, no c/o pain, AAOx4, resting in bed, good UOP, OOBTC throughout shift. Patient on oxygen, sores to face from oxygen tubing. No new events during shift and no needs at this time. Will report to oncoming nurse at shift change.
--- NOTE | 2022-01-23 19:59 | PC.NURSE ---
i reported high pulse 109
--- NOTE | 2022-01-23 23:41 | PC.NURSE ---
i reported high pulse 102 to nurse
[2022-01-24] MEDS: piperacillin-tazobactam 3.375 GM in sodium chloride 0.9% (plus) 50 ML IV ×2 (00:25→08:36)
[2022-01-24 03:47] LABS: Basophils # 0.1 10^3/uL (0.0-0.1); Basophils % 0.8 %; Eosinophils # 0.1 10^3/uL (0.0-0.8); Eosinophils % 1.3 %; Hematocrit 41.8 % (42.0-52.0); Hemoglobin 13.3 g/dL (11.7-16.6); Lymphocytes # 1.5 10^3/uL (0.8-4.8); Lymphocytes % 13.6 %; Mean Corpuscular HGB Conc 31.8 g/dL (30.0-36.0); Mean Corpuscular Hemoglobin 27.2 pg (28.0-34.0); Mean Corpuscular Volume 85.5 fl (80-94); Mean Platelet Volume 9.4 fL (7.4-10.4); Monocytes # 0.8 10^3/uL (0.2-0.9); Monocytes % 7.8 %; Neutrophils # 8.18 10^3/uL (1.8-7.7); Neutrophils % 75.5 %; Nucleated Red Blood Cells % 0 %; Platelet Count 527 10^3/cmm (130-400); Red Blood Count 4.89 10^6/uL (4.1-5.3); Red Cell Distribution Width 14.6 % (12.1-15.1); White Blood Count 10.8 10^3/uL (4.0-10.0)
[2022-01-24 04:00] VITALS: BP 119/79; PULSE 108; RESP 17; TEMP 36.7; O2SAT 93
[2022-01-24 04:05] LABS: Anion Gap 9.3 (5-19); Blood Urea Nitrogen 15 mg/dL (8-23); Calcium 8.5 mg/dL (8.5-10.5); Carbon Dioxide 28 mmol/L (22-29); Chloride 98 mmol/L (98-107); Glomerular Filtration Rate 112.1 mL/min (90-130); Glucose 141 mg/dL (65-115); Magnesium 1.8 mg/dL (1.7-2.3); Osmolality Calculated 277 mOsm/kg (285-295); Potassium 3.3 mmol/L (3.5-5.1); Sodium 132 mmol/L (136-145)
[2022-01-24] MEDS: ondansetron 2 mg/ML SDV 2 mL 4 MG IVP ×2 (04:37→10:53)
--- NOTE | 2022-01-24 04:51 | PC.NURSE ---
i reported high pulse 108 to nurse
[2022-01-24 06:00] VITALS: PULSE 93
[2022-01-24] MEDS: heparin 5,000 unit/mL INJ 1 mL 5000 UNIT SUBCUT (06:05)
[2022-01-24 07:54] VITALS: BP 116/76; PULSE 87; RESP 16; O2SAT 97
[2022-01-24] MEDS: ipratropium-albuterol 3 mL Neb INHALATION (07:54)
[2022-01-24] MEDS: pantoprazole DR 40 mg Tablet PO (08:37)
--- NOTE | 2022-01-24 09:04 | P.PN_ITS ---
Subjective Subjective: The patient is now on the floor. He says he is feeling well. He says he would like [place] go home. He is passing flatus and having bowel movements. He is tolerating the GI soft diet. Vitals/I&O/Wt Last Vital Signs Temp 98.0 F 01/24/22 04:00 Pulse 87 01/24/22 07:54 Resp 16 01/24/22 07:54 BP 116/76 01/24/22 07:54 Pulse Ox 97 01/24/22 07:54 01/23/22 01/24/22 01/24/22 22:59 06:59 14:59 Intake Total 50 / 525.208 50 / 525.208 Output Total 600 / 1660 560 / 1660 Balance -550 / -1134.792 -510 / -1134.792 Weight last 48 hrs Weight 194 lb Physical Exam Narrative: Bowel sounds are present. The abdomen remains nontender. Urinary Catheter Management: Mcfadden: Cath Placed During This Visit: yes, but has since been removed by the nurse Reason for Continuing Indwelling Catheter: Accurate Measurement of Urinary Output in Critically Ill Patients Urinary Catheter Date of Insertion: 01/13/22 Urinary Catheter Time of Insertion: 14:30 Date Urinary Catheter Removed: 01/20/22 Time Urinary Catheter Discontinued: 04:30 Data : 01/24/22 03:07 01/24/22 03:07 A&P Assessment and plan (1) Ileus: Appears to have resolved. The patient is doing well. I may not continue the see daily. Please call if I can be of further assistance. Status: Acute Attestations Medical Necessity Statement*: See admitting service's notation. Coding Level of Care Code Acute Director Of Psychology for Sarah [facility] Diagnoses Ileus K56.7
--- NOTE | 2022-01-24 10:23 | PC.SOCIAL ---
IMM Update pg 2 of IMM updated and reviewed w/ patient. Copy provided and copy in chart updated.
[2022-01-24 11:26] VITALS: O2SAT 82; O2SAT 92; O2SAT 93
[2022-01-24 12:00] VITALS: BP 112/68; PULSE 89; RESP 17; TEMP 36.8; O2SAT 95
--- NOTE | 2022-01-24 13:08 | P.DS_ITS ---
Discharge Providers Date of Admission: 01/13/22 16:44 Date of Discharge: January 24, 2022 Attending Provider at Admission: Danielito Florence MD Attending Provider at Discharge: Reggie Juan Primary Care Provider: Joe Levy DO Diagnoses at Discharge Discharge Diagnosis (1) Ileus: Status: Acute Reason for Visit Reason for Visit: COUGH/ DIFFICULTY BREATHING Hospital Course Hospital Course Pleasant 66-year-old gentleman with chronic kidney disease, COPD, presented with shortness of breath over the preceding week, as well as episode of fever, and recurrent vomiting over the preceding days. Admission managed for acute hypoxic respiratory failure with pneumonia, eventually with cultures growing strep pneumo and sputum. Negative blood cultures. Negative MRSA PCR. Negative Covid PCR. Initially with septic shock requiring pressor support. On presentation also with acute kidney injury. Shock and JUANITA resolved. Hospital stay complicated also by ileus, managed conservatively with decompression with NG tube, eventually gradually improved, tolerated advancement of diet. He is overall feeling much better. Oxygenation has shown improvement, although he still requiring 4 L of oxygen on home evaluation. This is requested for him alongside home health at discharge for nursing visits and therapy with deconditioning. Physical Exam Narrative: Dressed in street clothes and getting ready to go. His is at bedside. Const: COMMON NORMALS: no acute distress and patient oriented x3 HENMT: COMMON NORMALS: oropharynx normal OTHER: Resolving erythema, diminishing eschar on each cheek Neck/C-Spine: COMMON NORMALS: no JVD Resp: COMMON NORMALS: normal respiratory effort and clear to auscultation bilaterally AUSCULTATION: clear to auscultation bilaterally Cardio: COMMON NORMALS: no JVD, regular rhythm, S1 normal heart sound present, S2 normal heart sound present and No murmurs present (Cardio) RHYTHM: regular rhythm HEART SOUNDS: S1 normal heart sound present and S2 normal heart sound present GI: COMMON NORMALS: Soft to palpation and non-tender PALPATION: Yes Soft to palpation Extremity: COMMON NORMALS: no joint enlargement and no pedal edema Neuro: COMMON NORMALS: patient oriented x3 and moves all extremities Skin: COMMON NORMALS: no rashes or lesions noted GENERAL SKIN EXAM: no rashes or lesions noted Urinary Catheter Management: Mcfadden: Cath Placed During This Visit: yes, but has since been removed by the nurse Reason for Continuing Indwelling Catheter: Accurate Measurement of Urinary Output in Critically Ill Patients Urinary Catheter Date of Insertion: 01/13/22 Urinary Catheter Time of Insertion: 14:30 Date Urinary Catheter Removed: 01/20/22 Time Urinary Catheter Discontinued: 04:30 Discharge Data Studies Completed and Pending Completed Studies During Hospitalization Category Date Time Status CXRP [XR chest 1V portable [id number]] Routine Exams 01/17/22 09:38 Completed XR abdomen 1V* [id number] Routine Exams 01/14/22 08:23 Completed XR abdomen 1V* [id number] Routine Exams 01/19/22 07:48 Completed XR chest 1V portable [id number] Routine Exams 01/15/22 05:00 Completed XR chest 1V portable [id number] Routine Exams 01/19/22 08:25 Completed XR chest 1V portable [id number] Stat Exams 01/13/22 14:39 Completed XR chest 1V portable [id number] Stat Exams 01/18/22 22:14 Completed CV. echo complete* [id number] Routine Ultrasound 01/13/22 17:03 Completed US venous duplex lower extremity bilat [CV venous Ultrasound 01/13/22 18:40 [place] [id number]] Routine US venous duplex lower extremity bilat [CV venous Ultrasound 01/15/22 07:55 [place] [id number]] Routine Pending at discharge Category Date Time Status Basic Metabolic Panel AM LABS Lab 01/25/22 04:00 Ordered Basic Metabolic Panel AM LABS Lab 01/26/22 04:00 Ordered Complete Blood Count w/Auto AM LABS Lab 01/25/22 04:00 Ordered Complete Blood Count w/Auto AM LABS Lab 01/26/22 04:00 Ordered Radiology Impressions Venous Duplex 01/15/22 07:55 IMPRESSION: No evidence of deep vein thrombosis. Abdomen X-Ray 01/19/22 07:48 IMPRESSION: 1. Marked gaseous distention of the stomach and proximal small bowel. Decreased air throughout the colon. Suspicious for a moderate obstruction. Transition point not identified but probably distal small bowel. Findings have progressed since 01/14/2022. Notified Danielito Florence MD at 01/19/2022 8:09 AM. Chest X-Ray 01/19/22 08:25 IMPRESSION: 1. Enteric tube is seen with the tip in the body of the stomach. 2. Heart is enlarged but stable when compared to the prior exam. 3. Stable bilateral pleuroparenchymal disease. Laboratory Results WBC 10.8 10^3/uL (4.0-10.0) H 01/24/22 03:07 RBC 4.89 10^6/uL (4.1-5.3) 01/24/22 03:07 Hgb 13.3 g/dL (11.7-16.6) 01/24/22 03:07 Hct 41.8 % (42.0-52.0) L 01/24/22 03:07 MCV 85.5 fl (80-94) 01/24/22 03:07 MCH 27.2 pg (28.0-34.0) L 01/24/22 03:07 MCHC 31.8 g/dL (30.0-36.0) 01/24/22 03:07 RDW 14.6 % (12.1-15.1) 01/24/22 03:07 Plt Count 527 10^3/cmm (130-400) H 01/24/22 03:07 MPV 9.4 fL (7.4-10.4) 01/24/22 03:07 Neut % (Auto) 75.5 % 01/24/22 03:07 Lymph % (Auto) 13.6 % 01/24/22 03:07 [place] % (Auto) 7.8 % 01/24/22 03:07 Eos % (Auto) 1.3 % 01/24/22 03:07 Baso % (Auto) 0.8 % 01/24/22 03:07 Neut # (Auto) 8.18 10^3/uL (1.8-7.7) H 01/24/22 03:07 Lymph # (Auto) 1.5 10^3/uL (0.8-4.8) 01/24/22 03:07 [place] # (Auto) 0.8 10^3/uL (0.2-0.9) 01/24/22 03:07 Eos # (Auto) 0.1 10^3/uL (0.0-0.8) 01/24/22 03:07 Baso # (Auto) 0.1 10^3/uL (0.0-0.1) 01/24/22 03:07 Nucleated RBC % (auto) 0 % 01/24/22 03:07 Total Counted 100 (0-100) 01/17/22 04:00 Atypical Lymphs % 0.0 % (0-5) 01/17/22 04:00 Absolute Neutrophils 9.2 10^3/cmm (1.4-6.5) H 01/17/22 04:00 Segmented Neutrophils 70 % 01/17/22 04:00 Abs Segm Neuts (Man) 8.3 10/cmm (1.6-7.1) H 01/17/22 04:00 Band Neutrophils 7.0 % 01/17/22 04:00 Abs Band Neuts (Man) 0.8 10^3/cmm (0.0-1.2) 01/17/22 04:00 Absolute Lymphocytes 2.1 10^3/cmm (1.2-3.4) 01/17/22 04:00 Lymphocytes (Manual) 18 % 01/17/22 04:00 Monocytes (Manual) 1.0 % 01/17/22 04:00 Absolute Monocytes 0.1 10^3/cmm (0.1-0.6) 01/17/22 04:00 Eosinophils (Manual) 4 % 01/17/22 04:00 Absolute Eosinophils 0.4 10^3/cmm (0.0-0.7) 01/17/22 04:00 Basophils (Manual) 0.0 % 01/17/22 04:00 Absolute Basophils 0.0 10^3/cmm (0.0-0.2) 01/17/22 04:00 Metamyelocytes 37.0 % 01/13/22 14:39 Nucleated RBCs # 0.0 /100WBC 01/24/22 03:07 Platelet Estimate Normal (Normal) 01/17/22 04:00 PT 20.40 SECONDS (12.1-14.9) H 01/14/22 04:10 INR 1.70 (0.8-1.2) H 01/14/22 04:10 APTT 36.2 SECONDS (23.9-36.7) 01/14/22 04:10 D-Dimer 1.06 ug/mIFEU (0-0.59) H 01/13/22 14:39 Specimen Type Arterial 01/18/22 22:16 Sample Site Radial, right 01/18/22 22:16 ABG pH 7.42 (7.35-7.45) 01/18/22 22:16 ABG pCO2 45.7 mmHg (35-45) H 01/18/22 22:16 ABG pO2 90.2 mmHg (80.0-100.0) 01/18/22 22:16 ABG HCO3 29.7 mmol/L (22-26) H 01/18/22 22:16 ABG O2 Saturation 97.2 01/18/22 22:16 ABG Base Excess 4.5 mmol/L (-2.0-2.0) H 01/18/22 22:16 [place] Test Pos 01/18/22 22:16 A-a O2 Gradient 0.2 mmHg (5-10) L 01/18/22 22:16 Hematocrit 33.1 % (42-52) L 01/18/22 22:16 Hgb O2 Saturation 95.4 % (95-100) 01/18/22 22:16 Carboxyhemoglobin 0.8 %THgb (0.4-20.1) 01/18/22 22:16 Methemoglobin 1.0 % (0.4-1.5) 01/18/22 22:16 Total Hemoglobin 10.8 g/dL (14-18) L 01/18/22 22:16 Sodium 142.0 mmol/L (131-143) 01/18/22 22:16 Potassium 3.7 mmol/L (3.5-5.0) 01/18/22 22:16 Glucose 122.0 mg/dL (70-115) H 01/18/22 22:16 Ionized Calcium 1.2 mmol/L (1.1-1.4) 01/18/22 22:16 O2 Delivery Device Nc 01/18/22 22:16 O2 Liters/Min 6.0 % 01/18/22 22:16 FiO2 50.0 % 01/18/22 03:25 Tidal Volume 0.50 01/18/22 03:25 PEEP 8.0 cmH20 01/18/22 03:25 Developmental Education Instructor ID [email or web address] 01/18/22 22:16 Sodium 132 mmol/L (136-145) L 01/24/22 03:07 Potassium 3.3 mmol/L (3.5-5.1) L 01/24/22 03:07 Chloride 98 mmol/L (98-107) 01/24/22 03:07 Carbon Dioxide 28 mmol/L (22-29) 01/24/22 03:07 Anion Gap 9.3 (5-19) 01/24/22 03:07 BUN 15 mg/dL (8-23) 01/24/22 03:07 Creatinine 0.7 mg/dL (0.7-1.2) 01/24/22 03:07 GFR Calculation 112.1 mL/min (90-130) 01/24/22 03:07 Glucose 141 mg/dL (65-115) H 01/24/22 03:07 POC Glucose 112 mg/dL (70-110) H 01/19/22 07:49 Calculated Osmolality 277 mOsm/kg (285-295) L 01/24/22 03:07 Lactic Acid 3.8 mmol/L (0.5-2.2) H 01/13/22 14:39 Lactic Acid (Sepsis) 3.4 mmol/L (0.5-2.2) H 01/13/22 16:48 Lactate 2.3 mmol/L (0.5-2.2) H 01/14/22 04:10 Calcium 8.5 mg/dL (8.5-10.5) 01/24/22 03:07 Phosphorus 4.5 mg/dL (2.5-4.5) 01/14/22 04:10 Magnesium 1.8 mg/dL (1.7-2.3) 01/24/22 03:07 Total Bilirubin 0.8 mg/dL (0.15-1.2) 01/16/22 03:10 AST 15 U/L (0-40) 01/16/22 03:10 ALT 11 U/L (0-41) 01/16/22 03:10 Alkaline Phosphatase 509 IU/L (40-130) H 01/16/22 03:10 Creatine Kinase 41 U/L (39-308) 01/13/22 14:39 Troponin T Baseline 19 ng/L (0-15) H 01/13/22 14:39 Troponin T 120 Minute 21.55 ng/L (0-15) H 01/13/22 16:48 Delta Troponin T 2.55 ABS# (0-10) 01/13/22 16:48 Troponin T Hi Sens 6Hr 19.73 ng/L (0-15) H 01/13/22 21:05 Troponin T Hi Sens 6Hr Delta 0.73 ng/L (0-12) 01/13/22 21:05 C-Reactive Protein 3.0 mg/L (0.0-4.9) 01/13/22 14:39 NT-Pro-B Natriuret Pep 480 pg/mL (0-125) H 01/18/22 22:22 Total Protein 6.4 g/dL (6.6-8.7) L 01/16/22 03:10 Albumin 2.4 g/dL (3.5-5.2) L 01/16/22 03:10 Globulin 4.0 g/dL (1.3-4.6) 01/16/22 03:10 Procalcitonin 3.53 ng/mL (0-0.5) H 01/16/22 03:10 TSH 3.08 uIU/mL (0.27-4.20) 01/22/22 04:25 Random Cortisol 13.48 ug/dL (2.47-19.5) 01/22/22 04:25 Urine Color Dark yellow (Yellow) 01/13/22 17:24 Urine Appearance Cloudy (CLEAR) 01/13/22 17:24 Urine pH 5 (5-7) 01/13/22 17:24 Ur Specific [place] 1.025 (1.005-1.030) 01/13/22 17:24 Urine Protein Neg (Negative) 01/13/22 17:24 Urine Glucose (UA) Norm (Normal) 01/13/22 17:24 Urine Ketones Negative (Negative) 01/13/22 17:24 Urine Blood Trace (Negative) H 01/13/22 17:24 Urine Nitrate Negative (Negative) 01/13/22 17:24 Urine Bilirubin 1+ (Negative) H 01/13/22 17:24 Urine Urobilinogen 1 mg/dL (Negative) H 01/13/22 17:24 Ur Leukocyte Esterase Negative (Negative) 01/13/22 17:24 Urine RBC 0-4 /hpf (0-2) H 01/13/22 17:24 Urine WBC 0-4 /hpf (0-5) H 01/13/22 17:24 Ur Squamous Epith Cells 0-4 /hpf (0-5) H 01/13/22 17:24 Amorphous Sediment 1+ /hpf 01/13/22 17:24 Urine Bacteria 1+ /hpf (NONE) H 01/13/22 17:24 Ur Random Sodium 86 mmol/L 01/14/22 17:40 Urine Creatinine 96 mg/dL (39-259) 01/14/22 17:40 Coronavirus 229E (PCR) Not detected (NOT DETECT) 01/13/22 15:05 SARS-CoV-2 (PCR) Not detected (NOT DETECT) 01/13/22 15:05 Vitals Last Vital Signs Temp 98.3 F 01/24/22 12:00 Pulse 89 01/24/22 12:00 Resp 17 01/24/22 12:00 BP 112/68 01/24/22 12:00 Pulse Ox 95 01/24/22 12:00 Discharge Plan Discharge Patient Disposition: Home Health Service Condition: Stable Prescriptions: New acetaminophen 325 mg Tablet 650 mg PO Q6H PRN (Reason: Mild/Mod Pain Or Temp >/= 101) Qty: 30 3RF levofloxacin 750 mg tablet 750 mg PO DAILY 3 Days Qty: 3 0RF Discontinued [place] 7.5-325 mg Tablet 1 tab PO PRN PRN (Reason: Pain) 0RF Discharge Orders: Discharge Order (Routine); Ordered 01/24/22 Ordered By: Reggie Juan Other Ambulatory Orders: DME: Oxygen (Order) Location: None Selected Ordered By: Reggie Juan DME: Walker (Order) Location: None Selected Ordered By: Reggie Juan Referrals: Wellington Savage MD [Physician] - 01/29/22 8:00 am Discharge Activity: Oxygen as instructed Patient Instructions: Levofloxacin (By mouth), Bacterial Pneumonia (GEN), Opioid Safety Activity Restrictions/Additional Instructions: Complete antibiotic course for pneumonia. Discussed with your doctor regarding Streptococcus pneumoniae pneumonia. Please follow-up with your primary doctor for reassessment. Consider reassessment chest x-ray to follow-up for resolution in 4-6 weeks. Discussed with your doctor to make sure you are up-to-date on your vaccinations for pneumonia. Continue oxygen, decrease as tolerating, target oxygen saturation 92%. Monitor blood pressures at home twice daily, write down values. In case her blood pressures become low, below 100 top number or below 60 bottom number please contact your doctors office. If top number is falling to 80s or below, or bottom number falling to 40s or below, call 911. Please have your primary doctor follow-up your renal function. You had acute kidney injury at presentation to the hospital, this had since resolved. Avoid NSAIDs like ibuprofen, Aleve, etc. Discharge Attestations Time Spent in Discharge Care*: greater than 30 min Quality Metrics Clinical Quality Measures [ No reported AMI, CVA or VTE this stay] Coding Level of Care Code Acute g [facility] note Diagnoses Ileus K56.7
--- NOTE | 2022-01-24 13:46 | PC.NURSE ---
HOME delivered patients home oxygen to patient at bedside
[2022-01-24 14:42] VITALS: BP 112/68; PULSE 89; RESP 17; TEMP 36.8; O2SAT 95
--- NOTE | 2022-01-24 14:43 | PC.NURSE ---
patient verbalized understanding of discharge instructions, home medications, and follow up appointments.
== END 2022-01-24 14:30 | disposition home health service (06) | DRG 870 ==
LOC: ER 16:15 → ICU 17:32 → MEDSURG 01-23 13:24
PROVIDERS: Family Medicine; Admitting Provider Internal Medicine; Emergency Provider Family Medicine; PCP Family Medicine; Visit Provider Internal Medicine
DX: A41.9 Sepsis, unspecified organism (principal); R65.21 Severe sepsis with septic shock; J96.02 Acute respiratory failure with hypercapnia; J96.01 Acute respiratory failure with hypoxia; J69.0 Pneumonitis due to inhalation of food and vomit; N17.9 Acute kidney failure, unspecified; J44.0 Chronic obstructive pulmonary disease with (acute) lower respiratory infection; K56.7 Ileus, unspecified; N18.9 Chronic kidney disease, unspecified; F17.210 Nicotine dependence, cigarettes, uncomplicated; I95.9 Hypotension, unspecified; B95.3 Streptococcus pneumoniae as the cause of diseases classified elsewhere
CPT/HCPCS: 31500; 36415; 36416; 36592; 36600; 51702; 71045; 74018; 80048; 80051; 80053; 81001; 82330; 82533; 82550; 82575; 82805; 82962; 83605; 83735; 83880; 84100; 84145; 84300; 84443; 84484; 85007; 85025; 85378; 85610; 85730; 86140; 87040; 87070; 87205; 87635; 87641; 92610; 93005; 93306; 93970; 94002; 94003; 94640; 94799; 96365; 96366; 96367; 96372; 96375; 97110; 97116; 97161; 97530; 99291; 99292; C1751; J0330; J1644; J1940; J1956; J2250; J2270; J2405; J2543; J2704; J2765; J3010; J3370; J3480; J3490; J7030; J7050

== ENCOUNTER 2022-06-16 19:02 | Emergency (ER) | payer MEDICARE, SELFPAY ==
[2022-06-16 19:14] VITALS: BP 121/78; PULSE 108; RESP 22; TEMP 36.7; O2SAT 93; BMI 33.2
--- NOTE | 2022-06-16 19:23 | XRR_ITS ---
PROCEDURE INFORMATION: Exam: XR Chest Exam date and time: 06/16/2022 7:45 PM Age: 66 years old Clinical indication: Angina; Additional info: Cp TECHNIQUE: Imaging protocol: Radiologic exam of the chest. Views: 1 view. COMPARISON: CR XR chest 1V portable [id number] 01/19/2022 8:31 AM FINDINGS: Tubes, catheters and devices: Enteric tube and right internal jugular central line have been removed. Lungs: Resolution of bilateral lower lobe airspace disease and mild pulmonary edema. No focal consolidation. No pulmonary edema. Moderate elevation of the right hemidiaphragm. There is linear scarring in the right middle lobe and right and left lower lobes. Pleural spaces: Resolution of bilateral pleural effusions. No pleural effusion. No pneumothorax. Heart/Mediastinum: Stable mild enlargement of the cardiac silhouette. Mediastinal contours are unremarkable. Vasculature: Vascular calcifications in the aorta. The calcifications are now displaced approximately 1.3 cm from the aortic wall at the level of the aortic arch, findings raise suspicion for a possible aortic dissection. Bones/joints: Unremarkable for age. Soft tissues: Metallic foreign bodies projecting over the right chest are stable. XR/XR chest 1V portable [id number] IMPRESSION: 1. Vascular calcifications in the aorta. The calcifications are now displaced approximately 1.3 cm from the aortic wall at the level of the aortic arch, findings raise suspicion for a possible aortic dissection. Recommend clinical correlation. Also recommend further evaluation with CT angiogram of the aorta. 2. Incidental/nonacute findings are listed in the report. COMMENTS: THIS REPORT CONTAINS FINDINGS THAT MAY BE CRITICAL TO PATIENT CARE. The findings were verbally communicated via telephone conference with NESS Graham at 8:20 PM CDT on 06/16/2022. The findings were acknowledged and understood.
[2022-06-16] MEDS: morphine 4 mg/mL SDV 1 mL IVP (19:57)
[2022-06-16] MEDS: ondansetron 2 mg/ML SDV 2 mL 4 MG IVP (19:57)
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
[2022-06-16 20:35] VITALS: BP 116/79; PULSE 97; RESP 15; O2SAT 97
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
[2022-06-16] MEDS: iohexol 350 mg/mL 100 mL Btl IV (20:54)
[2022-06-16 20:57] LABS: Basophils # 0.1 10^3/uL (0.0-0.1); Basophils % 0.9 %; Eosinophils # 0.4 10^3/uL (0.0-0.8); Eosinophils % 4.8 %; Hematocrit 45.4 % (42.0-52.0); Hemoglobin 13.9 g/dL (11.7-16.6); Lymphocytes # 1.7 10^3/uL (0.8-4.8); Lymphocytes % 18.5 %; Mean Corpuscular HGB Conc 30.6 g/dL (30.0-36.0); Mean Corpuscular Hemoglobin 26.8 pg (28.0-34.0); Mean Corpuscular Volume 87.6 fl (80-94); Mean Platelet Volume 9.4 fL (7.4-10.4); Monocytes # 0.8 10^3/uL (0.2-0.9); Monocytes % 8.9 %; Neutrophils # 6.07 10^3/uL (1.8-7.7); Neutrophils % 66.5 %; Nucleated Red Blood Cells % 0 %; Platelet Count 291 10^3/cmm (130-400); Red Blood Count 5.18 10^6/uL (4.1-5.3); Red Cell Distribution Width 15.1 % (12.1-15.1); White Blood Count 9.1 10^3/uL (4.0-10.0)
[2022-06-16 21:11] LABS: D Dimer 0.41 ug/mIFEU (0-0.59); Lactate (Lactic Acid level) 1.4 mmol/L (0.5-2.2)
[2022-06-16 21:15] LABS: Troponin(5th) Baseline 11 ng/L (0-15)
[2022-06-16 21:17] LABS: Alanine Aminotransferase 17 U/L (0-41); Albumin Level 3.6 g/dL (3.5-5.2); Alkaline Phosphatase 112 U/L (40-130); Anion Gap 14.5 (5-19); Aspartate Amino Transferase 16 U/L (0-40); Blood Urea Nitrogen 18 mg/dL (8-23); Calcium 8.8 mg/dL (8.5-10.5); Carbon Dioxide 27 mmol/L (22-29); Chloride 101 mmol/L (98-107); Globulin 3.5 g/dL (1.3-4.6); Glomerular Filtration Rate 83.9 mL/min (90-130); Glucose 109 mg/dL (65-115); Lipase 32 U/L (13-60); Osmolality Calculated 288 mOsm/kg (285-295); Potassium 4.5 mmol/L (3.5-5.1); Sodium 138 mmol/L (136-145); Total Bilirubin 0.2 mg/dL (0.15-1.2); Total Protein 7.1 g/dL (6.6-8.7)
--- NOTE | 2022-06-16 21:34 | ECG_ITS ---
[facility] Test Date: 2022-06-16 Pat Name: 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 Department: Room: Gender: Male Database Management Specialist: : [id number] Requested By: Amanda Damon Order Number: [id number] Les MD: Sheldon Mir M.D. Measurements Intervals Char[place] Rate: 90 P: 49 [place]: 156 QRS: 29 QRSD: 93 T: 36 QT: 388 QTc: 476 Interpretive Statements SINUS RHYTHM LOW QRS VOLTAGE IN PRECORDIAL LEADS [QRS DEFLECTION < 1.0 mV IN CHEST LEADS] POSSIBLE RIGHT VENTRICULAR CONDUCTION DELAY [RSR (QR) IN V1/V2] Compared to ECG 01/22/2022 05:53:46 T-wave abnormality no longer present Electronically Signed On 06-16-2022 22:42:54 CDT by Sheldon Mir M.D. [id number]
[2022-06-16 21:45] VITALS: BP 117/77; PULSE 93; O2SAT 94
[2022-06-16 22:21] LABS: Add Urine Microscopic? YES; Bilirubin Urine Neg (Negative); Blood Urine 2+ (Negative); Glucose Urine UA Norm (Normal); Ketones Urine Negative (Negative); Leukocyte Esterase Urine Negative (Negative); Nitrate Urine Negative (Negative); Protein Urine Neg (Negative); Specific Gravity, Urine 1.015 (1.005-1.030); Urine Appearance Clear (CLEAR); Urine Color Yellow (Yellow); Urobilinogen Urine Norm (Negative); pH Urine 6.5 (5-7)
[2022-06-16 22:23] LABS: Add Urine Culture? No; Squamous Epithelial Cell Urine 0-4 /hpf (0-5)
[2022-06-16 23:00] VITALS: BP 107/74; PULSE 89; RESP 16; O2SAT 96
[2022-06-16 23:10] LABS: Troponin 5 2HR 10.93 ng/L (0-15)
[2022-06-16 23:27] VITALS: BP 107/74; PULSE 89; RESP 16; O2SAT 96
[2022-06-16 23:36] LABS: Troponin 5 2HR Delta -0.07 ABS# (0-10)
== END 2022-06-16 23:28 | disposition home or self-care (01) ==
PROVIDERS: Emergency Provider Emergency Medicine; PCP Family Medicine Adult Medicine
DX: R10.9 Unspecified abdominal pain (principal); J44.9 Chronic obstructive pulmonary disease, unspecified; F17.210 Nicotine dependence, cigarettes, uncomplicated
CPT/HCPCS: 71045; 71275; 74174; 80053; 81001; 83605; 83690; 84484; 85025; 85378; 93005; 96374; 96375; 99285; J2270; J2405; Q9967

== ENCOUNTER 2022-08-19 19:01 | Emergency (ER) | payer MEDICARE, SELFPAY ==
[2022-08-19 19:17] VITALS: BP 120/84; PULSE 103; RESP 16; TEMP 36.3; O2SAT 92; BMI 33.3
[2022-08-19 20:07] LABS: Basophils # 0.1 10^3/uL (0.0-0.1); Eosinophils # 0.5 10^3/uL (0.0-0.8); Eosinophils % 5.7 %; Hematocrit 49.8 % (42.0-52.0); Hemoglobin 15.6 g/dL (11.7-16.6); Lymphocytes # 1.6 10^3/uL (0.8-4.8); Lymphocytes % 17.7 %; Mean Corpuscular HGB Conc 31.3 g/dL (30.0-36.0); Mean Corpuscular Hemoglobin 27.3 pg (28.0-34.0); Mean Corpuscular Volume 87.1 fl (80-94); Mean Platelet Volume 9.4 fL (7.4-10.4); Monocytes # 0.9 10^3/uL (0.2-0.9); Monocytes % 9.8 %; Neutrophils # 5.86 10^3/uL (1.8-7.7); Neutrophils % 65.4 %; Nucleated Red Blood Cells % 0 %; Platelet Count 344 10^3/cmm (130-400); Red Blood Count 5.72 10^6/uL (4.1-5.3); Red Cell Distribution Width 14.7 % (12.1-15.1)
[2022-08-19 20:45] LABS: Alanine Aminotransferase 25 U/L (0-41); Albumin Level 3.6 g/dL (3.5-5.2); Alkaline Phosphatase 124 U/L (40-130); Anion Gap 12.4 (5-19); Aspartate Amino Transferase 17 U/L (0-40); Blood Urea Nitrogen 14 mg/dL (8-23); Calcium 9.6 mg/dL (8.5-10.5); Carbon Dioxide 31 mmol/L (22-29); Chloride 98 mmol/L (98-107); Globulin 4.8 g/dL (1.3-4.6); Glomerular Filtration Rate 83.9 mL/min (90-130); Glucose 114 mg/dL (65-115); Lipase 12 U/L (13-60); Osmolality Calculated 285 mOsm/kg (285-295); Potassium 4.4 mmol/L (3.5-5.1); Sodium 137 mmol/L (136-145); Total Bilirubin 0.2 mg/dL (0.15-1.2); Total Protein 8.4 g/dL (6.6-8.7)
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
[2022-08-19 22:03] VITALS: RESP 18
[2022-08-19] MEDS: ondansetron 2 mg/ML SDV 2 mL 4 MG IVP (22:03)
[2022-08-19] MEDS: HYDROmorphone 1 mg/mL INJ 1 mL 0.5 MG IVP (22:03)
[2022-08-19 22:15] VITALS: BP 106/79; PULSE 96; RESP 16; O2SAT 93
--- NOTE | 2022-08-19 22:15 | W.ED.ABDPA2 ---
HPI - Abdominal Pain General: Chief Complaint: Abdominal Pain Stated Complaint: abd pain Time Seen by Provider: 08/19/22 21:34 Source: patient Mode of arrival: ambulatory Limitations: no limitations History of Present Illness: 66-year-old male states been having abdominal pain for a month states is diffuse nature has gotten worse today. States the pain is in his epigastric region he rates it a 4 out of 10 denies any nausea vomiting. Denies any fever denies any worsening improving factors denies any radiation of the pain. Associated Symptoms: Denies chills, dysuria and fever(s) Review of Systems Const: Denies: fever(s), chills, body aches or change in appetite Eyes: Denies: blurry vision or eye discomfort ENMT: Denies: throat pain or dental pain Card: Denies: chest pain Resp: Denies: dyspnea GI: Reports: abdominal pain : Denies: dysuria Musc: Denies: neck pain or back pain Skin/Breast: Denies: rash Neuro: Denies: headache(s) Psych: Denies: depression Onofre/Lymph: Denies: easy bruising All/Imm: Denies: urticaria PFSH ED PFSH: Medical History Acquired bilateral knee deformity Acute kidney injury (nontraumatic) Acute kidney injury superimposed on CKD 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 some not at all.) Alcohol intake: unknown Physical Exam Const: COMMON NORMALS: no acute distress, patient oriented x3 and healthy appearing HENMT: COMMON NORMALS: normocephalic and atraumatic HEAD & SCALP: normocephalic and atraumatic Eye: COMMON NORMALS: Equal, round and reactive pupils present and EOMs intact bilaterally PUPIL: Yes Equal, round and reactive pupils present Neck/C-Spine: COMMON NORMALS: full ROM and supple Chest: COMMONS NORMALS: normal inspection of the chest and normal palpation of entire chest wall Resp: COMMON NORMALS: normal respiratory effort, No retractions, No use of accessory muscles and clear to auscultation bilaterally AUSCULTATION: clear to auscultation bilaterally Cardio: COMMON NORMALS: regular rate, regular rhythm and No murmurs present (Cardio) RATE: regular rate RHYTHM: regular rhythm GI: COMMON NORMALS: Normal to inspection, nondistended, normoactive bowel sounds present, Soft to palpation and no masses PALPATION: Yes Soft to palpation OTHER: diffuse tenderness Extremity: COMMON NORMALS: normal to inspection and full ROM Neuro: COMMON NORMALS: patient oriented x3, moves all extremities and no focal motor deficits Psych: COMMON NORMALS: mental status grossly normal, Normal thought process present and cooperative THOUGHT PROCESS: Normal thought process present Skin: COMMON NORMALS: no rashes or lesions noted and no wounds GENERAL SKIN EXAM: no rashes or lesions noted Course Vital Signs: Vital signs: Vital Signs Temperature 97.4 F L 08/19/22 19:17 Pulse Rate 96 08/19/22 22:15 Respiratory Rate 16 08/19/22 22:15 Blood Pressure 106/79 08/19/22 22:15 Pulse Oximetry 93 08/19/22 22:15 Oxygen Delivery Me thod 08/19/22 22:15 Oxygen Flow Rate 2 08/19/22 22:15 MDM - Abdominal Pain Medical Decision Making Patient presents with abdominal pain its been chronic in nature blood work CT scan here are normal he is to take Prilosec he is to follow-up with PCP and return if worsening he understands agrees to plan. Lab Data : 08/19/22 19:58 08/19/22 19:58 Labs/Radiology: Radiology Impressions Abdomen/Pelvis CT 08/19/22 21:42 IMPRESSION: 1. No acute abdominopelvic findings. 2. Chronic and incidental findings as described. COMMENTS: Consistent with the [employer]'s Incidental Findings Committee white paper (J Am Sarah Radiol 2018): Any incidental renal lesion less than 1 cm or classified as too small to characterize, or any incidental cystic renal lesion characterized as simple-appearing, is likely benign. No follow-up imaging is recommended for these lesions per consensus recommendations based on imaging criteria. Laboratory Results WBC 9.0 10^3/uL (4.0-10.0) 08/19/22 19:58 RBC 5.72 10^6/uL (4.1-5.3) H 08/19/22 19:58 Hgb 15.6 g/dL (11.7-16.6) 08/19/22 19:58 Hct 49.8 % (42.0-52.0) 08/19/22 19:58 MCV 87.1 fl (80-94) 08/19/22 19:58 MCH 27.3 pg (28.0-34.0) L 08/19/22 19:58 MCHC 31.3 g/dL (30.0-36.0) 08/19/22 19:58 RDW 14.7 % (12.1-15.1) 08/19/22 19:58 Plt Count 344 10^3/cmm (130-400) 08/19/22 19:58 MPV 9.4 fL (7.4-10.4) 08/19/22 19:58 Neut % (Auto) 65.4 % 08/19/22 19:58 Lymph % (Auto) 17.7 % 08/19/22 19:58 [place] % (Auto) 9.8 % 08/19/22 19:58 Eos % (Auto) 5.7 % 08/19/22 19:58 Baso % (Auto) 1.0 % 08/19/22 19:58 Neut # (Auto) 5.86 10^3/uL (1.8-7.7) 08/19/22 19:58 Lymph # (Auto) 1.6 10^3/uL (0.8-4.8) 08/19/22 19:58 [place] # (Auto) 0.9 10^3/uL (0.2-0.9) 08/19/22 19:58 Eos # (Auto) 0.5 10^3/uL (0.0-0.8) 08/19/22 19:58 Baso # (Auto) 0.1 10^3/uL (0.0-0.1) 08/19/22 19:58 Nucleated RBC % (auto) 0 % 08/19/22 19:58 Nucleated RBCs # 0.0 /100WBC 08/19/22 19:58 Sodium 137 mmol/L (136-145) 08/19/22 19:58 Potassium 4.4 mmol/L (3.5-5.1) 08/19/22 19:58 Chloride 98 mmol/L (98-107) 08/19/22 19:58 Carbon Dioxide 31 mmol/L (22-29) H 08/19/22 19:58 Anion Gap 12.4 (5-19) 08/19/22 19:58 BUN 14 mg/dL (8-23) 08/19/22 19:58 Creatinine 0.9 mg/dL (0.7-1.2) 08/19/22 19:58 GFR Calculation 83.9 mL/min (90-130) L 08/19/22 19:58 Glucose 114 mg/dL (65-115) 08/19/22 19:58 Calculated Osmolality 285 mOsm/kg (285-295) 08/19/22 19:58 Calcium 9.6 mg/dL (8.5-10.5) 08/19/22 19:58 Total Bilirubin 0.2 mg/dL (0.15-1.2) 08/19/22 19:58 AST 17 U/L (0-40) 08/19/22 19:58 ALT 25 U/L (0-41) 08/19/22 19:58 Alkaline Phosphatase 124 U/L (40-130) 08/19/22 19:58 Total Protein 8.4 g/dL (6.6-8.7) 08/19/22 19:58 Albumin 3.6 g/dL (3.5-5.2) 08/19/22 19:58 Globulin 4.8 g/dL (1.3-4.6) H 08/19/22 19:58 Lipase 12 U/L (13-60) L 08/19/22 19:58 Urine Color Yellow (Yellow) 08/19/22 22:05 Urine Appearance Clear (CLEAR) 08/19/22 22:05 Urine pH 6 (5-7) 08/19/22 22:05 Ur Specific [place] 1.020 (1.005-1.030) 08/19/22 22:05 Urine Protein Neg (Negative) 08/19/22 22:05 Urine Glucose (UA) Norm (Normal) 08/19/22 22:05 Urine Ketones Negative (Negative) 08/19/22 22:05 Urine Blood 2+ (Negative) H 08/19/22 22:05 Urine Nitrate Negative (Negative) 08/19/22 22:05 Urine Bilirubin Neg (Negative) 08/19/22 22:05 Urine Urobilinogen Norm mg/dL (Negative) 08/19/22 22:05 Ur Leukocyte Esterase Negative (Negative) 08/19/22 22:05 Urine RBC 40-50 /hpf (0-2) H 08/19/22 22:05 Urine WBC None /hpf (0-5) 08/19/22 22:05 Ur Squamous Epith Cells None /hpf (0-5) 08/19/22 22:05 Ur Renal Epithelial Cell 0-2 /hpf 08/19/22 22:05 Amorphous Sediment 1+ /hpf 08/19/22 22:05 Urine Bacteria None /hpf (NONE) 08/19/22 22:05 Urine Mucus 2+ /hpf 08/19/22 22:05 Discharge Plan Discharge Patient Disposition: Home Clinical Impression: Abdominal pain Condition: Stable Prescriptions: No Action meloxicam 7.5 mg tablet 7.5 mg PO DAILY Qty: 30 3RF albuterol sulfate 90 mcg/actuation HFA aerosol inhaler 2 puff inhalation Q6H PRN (Reason: shortness of breath or wheezing) Qty: 8.5 2RF montelukast [Singulair] 10 mg tablet 10 mg PO DAILY Qty: 30 5RF budesonide-formoterol [Symbicort] 160-4.5 mcg/actuation HFA aerosol inhaler 2 puff inhalation BID Qty: 10.2 5RF acetaminophen 325 mg Tablet 650 mg PO Q6H PRN (Reason: Mild/Mod Pain Or Temp >/= 101) Qty: 30 3RF nortriptyline 25 mg capsule 25 mg PO BEDTIME dicyclomine 20 mg tablet 20 mg PO BID PRN (Reason: abdominal pain) Qty: 20 0RF Discharge Orders: Discharge ED (Routine); Ordered 08/19/22 Ordered By: Amanda Damon Referrals: Wellington Savage MD [Primary Care Provider] - Discharge Diet: Advance as tolerated Discharge Activity: Resume usual activity Patient Instructions: Abdominal Pain (ED) Coding Level of Care Code ED Field Service Representative for Chg Fwd Exam Comprehensive
[2022-08-19 22:23] LABS: Add Urine Microscopic? YES; Bilirubin Urine Neg (Negative); Blood Urine 2+ (Negative); Glucose Urine UA Norm (Normal); Ketones Urine Negative (Negative); Leukocyte Esterase Urine Negative (Negative); Nitrate Urine Negative (Negative); Protein Urine Neg (Negative); Urine Appearance Clear (CLEAR); Urine Color Yellow (Yellow); Urobilinogen Urine Norm (Negative); pH Urine 6 (5-7)
[2022-08-19 22:24] LABS: RBC Urine 40-50 /hpf (0-2)
[2022-08-19 22:25] LABS: Add Urine Culture? No; Amorphous Sediment Urine 1+ /hpf; Mucus Urine 2+ /hpf; Renal Epithelial Cells Urine 0-2 /hpf
[2022-08-19 23:04] VITALS: BP 103/66; PULSE 99; RESP 16; O2SAT 90
== END 2022-08-19 23:05 | disposition home or self-care (01) ==
PROVIDERS: Emergency Provider Emergency Medicine; PCP Family Medicine Adult Medicine
DX: R10.13 Epigastric pain (principal); G89.29 Other chronic pain; F17.210 Nicotine dependence, cigarettes, uncomplicated
CPT/HCPCS: 36415; 74176; 80053; 81001; 83690; 85025; 96374; 96375; 99285; J1170; J2405

== ENCOUNTER 2024-04-30 17:14 | Emergency (ER) | payer MEDICARE, SELFPAY ==
[2024-04-30 17:15] VITALS: BP 152/79; PULSE 114; RESP 18; TEMP 36.8; O2SAT 90; BMI 30.4
--- NOTE | 2024-04-30 17:20 | ECG_ITS ---
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 Measurements Intervals Ruso Rate: 99 P: 63 WY: 172 QRS: 65 QRSD: 72 T: 26 QT: 329 QTc: 423 Interpretive Statements SINUS RHYTHM LOW QRS VOLTAGE IN PRECORDIAL LEADS [QRS DEFLECTION < 1.0 mV IN CHEST LEADS] POSSIBLE RIGHT VENTRICULAR CONDUCTION DELAY [RSR (QR) IN V1/V2] NONSPECIFIC ST & T-WAVE ABNORMALITY Compared to ECG 06/16/2022 21:32:28 T-wave abnormality now present Electronically Signed On 05-01-2024 21:53:52 CDT by Fredrick Murphy M.D. [id number]
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
[2024-04-30 17:24] VITALS: BP 152/79; PULSE 109; RESP 20; O2SAT 90
--- NOTE | 2024-04-30 17:29 | W.ED.SOB ---
HPI - SOB/Dyspnea General: Chief Complaint: Shortness of Breath/Dyspnea Stated Complaint: back/abd pain Time Seen by Provider: 04/30/24 17:15 Source: patient and EMS Mode of arrival: EMS Limitations: no limitations History of Present Illness: HPI Narrative: Patient is a 68-year-old male who presents to the emergency department via EMS from assisted due to worsening shortness of breath for some time. When I asked the patient how long he has had worsening shortness of breath this is the answer he gave me. He was not doing anything specific at onset of worsening of his shortness of breath. He does have history of COPD and does use oxygen as needed. He is also noting some back and upper abdominal/lower chest tightening that has been worsening over the past couple days. Currently on arrival his oxygen is 85%, placed on 2 L at this time. He denies any recent chest pain. He does note some distention of his abdomen, denies history of ascites or cirrhosis of the liver. He also reports a history of neuropathy and states that this is causing his back to feel tight. He does not have history of diabetes and does not report any history of heart attacks or strokes. He was given a breathing treatment by ambulance. No palpitations, syncope, or other symptoms to note at this time. MD elicited complaint: shortness of breath Pertinent past history: COPD Onset (ago): unknown Timing: constant and progressively worsening Severity: moderate Exacerbating factors: exertion Relieving factors: nothing Known history of: COPD Associated symptoms: Reports abdominal pain (Upper abdominal tightness) and chest pain (Tightness); Deny fever(s), lightheadedness, nausea, palpitations or vomiting Treatment prior to arrival: oxygen and bronchodilator Related Data: Home oxygen amount: as needed at night Review of Systems General: Reports: 10 or more systems reviewed and unremarkable except in HPI and below Const: Denies: fever(s), chills or fatigue Eyes: Denies: change in vision ENMT: Denies: throat pain, ear or mastoid pain or nasal discharge Card: Reports: chest pain (Tightness); Denies: palpitations, swelling of feet/ankles or lightheadedness Resp: Reports: dyspnea; Denies: productive cough or wheezing GI: Reports: abdominal pain (Upper abdominal tightness); Denies: nausea, vomiting, diarrhea or constipation : Denies: flank pain, difficulty urinating, dysuria or urinary frequency Musc: Reports: back pain; Denies: neck pain or joint pain Skin/Breast: Denies: rash Neuro: Denies: headache(s), numbness in extremities or weakness in extremities PFSH ED PFSH: Medical History History of pulmonary edema Hordeolum externum left upper eyelid Hematuria syndrome Insomnia Bilateral lower extremity edema CKD (chronic kidney disease) stage 2, GFR 60-89 ml/min Acquired bilateral knee deformity Chronic dislocation of right shoulder Chronic pain due to injury Neuropathy Osteoarthritis involving multiple joints on both sides of body Ileus COPD (chronic obstructive pulmonary disease) Acute kidney injury superimposed on CKD Pneumonia Social History Smoking and tobacco/nicotine status: current some day tobacco/nicotine user (3 cigarettes or less a day. some not at all.) Alcohol intake: unknown Physical Exam Const: COMMON NORMALS: patient oriented x3 and no limitations GENERAL APPEARANCE: cooperative, well developed and diaphoretic ORIENTATION/CONSCIOUSNESS: Yes awake, Yes oriented to person, Yes oriented to place and Yes oriented to time OTHER: Mild respiratory distress noted HENMT: COMMON NORMALS: normocephalic, atraumatic and hearing grossly normal bilaterally HEAD & SCALP: normocephalic and atraumatic Eye: COMMON NORMALS: Equal, round and reactive pupils present and EOMs intact bilaterally CONJUNCTIVA: Yes conjunctival abnormal positive bilateral conjunctival icterus (Mild) PUPIL: Yes Equal, round and reactive pupils present Neck/C-Spine: COMMON NORMALS: full ROM, supple and no JVD Chest: COMMONS NORMALS: normal inspection of the chest and normal palpation of entire chest wall Resp: COMMON NORMALS: No retractions and No use of accessory muscles EFFORT & INSPECTION: Yes respiratory distress and Yes pursed lip breathing AUSCULTATION: wheezes (Diffuse) Cardio: COMMON NORMALS: no JVD, regular rhythm, No clicks present (Cardio), No murmurs present (Cardio) and No rub (Cardio) RATE: bradycardic RHYTHM: regular rhythm GI: COMMON NORMALS: non-tender and no masses INSPECTION: Yes abdominal distension and Yes central obesity AUSCULTATION: Yes normoactive bowel sounds RECTAL EXAM: Yes deferred Back/Pelvis: COMMON NORMALS: thoracic and lumbar spine normal to inspection, no thoracic nor lumbar tenderness and thoraco-lumbar ROM normal Extremity: COMMON NORMALS: normal to inspection, full ROM and capillary refill normal Neuro: COMMON NORMALS: patient oriented x3, CN's II-XII intact bilaterally, moves all extremities, no focal motor deficits and no sensory deficits noted SENSORIUM/ORIENTATION: Yes oriented to person, Yes oriented to place and Yes oriented to time Psych: COMMON NORMALS: mental status grossly normal and Normal thought process present THOUGHT PROCESS: Normal thought process present Skin: COMMON NORMALS: no rashes or lesions noted GENERAL SKIN EXAM: no rashes or lesions noted Course Vital Signs: Vital signs: Vital Signs Temperature 98.2 F 04/30/24 17:15 Pulse Rate 104 H 04/30/24 18:30 Respiratory Rate 21 H 04/30/24 18:30 Blood Pressure 107/71 04/30/24 18:30 Pulse Oximetry 94 04/30/24 18:30 Oxygen Delivery Me thod Nasal Cannula 04/30/24 18:30 Oxygen Flow Rate 2 04/30/24 18:30 MDM - SOB/Dyspnea Medical Decision Making Patient brought in by EMS from assisted due to shortness of breath that has been increasing associated with some tightness of the lower chest and upper abdomen. History of COPD only uses oxygen as needed at night. On arrival he was mildly hypoxic 85-90, usually is reported to be in the low 90s. He is placed on 2 L and immediately comes up to 92-94. Rest of his vitals have been stable throughout the ED course, mild tachycardia likely from breathing treatments, which she received 1 by ambulance and 1 here in the emergency department. His workup found his CBC and CMP to be unremarkable. Troponin was normal and EKG showed normal sinus rhythm with low QRS voltage, rate of [address] segment changes. This EKG was reviewed with Dr. Merdano. His chest x-ray did not demonstrate any acute findings and his ABG ultimately unremarkable as patient has longstanding history of COPD and mild respiratory acidosis. His lipase was normal and urinalysis unremarkable at this time. He is weaned off of his 2 L of oxygen here in the emergency department and remains above 92%. He additionally states that he feels much better after the breathing treatments. Plan is for him to start a course of prednisone and azithromycin for a mild exacerbation of his COPD, and he will use his oxygen at night for the next few days for comfort measures. He is also to follow-up with primary care for further evaluation, and strict return precautions are given such as if he has any chest pain or worsening of breathing. He will be discharged back to assisted. Care of this patient was discussed with supervising ED physician, Dr. Medrano, who agrees at this time. Lab Data 04/30/24 17:38 04/30/24 17:38 Labs/Radiology: Radiology Impressions Chest X-Ray 04/30/24 17:21 IMPRESSION: No acute findings. Laboratory Results WBC 8.35 10^3/uL (3.29-11.43) 04/30/24 17:38 RBC 6.00 10^6/uL (3.85-5.65) H 04/30/24 17:38 Hgb 16.50 g/dL (11.27-16.99) 04/30/24 17:38 Hct 52.9 % (37-53) 04/30/24 17:38 MCV 88.2 fl (82-101) 04/30/24 17:38 MCH 27.5 pg (27-33) 04/30/24 17:38 MCHC 31.2 g/dL (30-55) 04/30/24 17:38 RDW 14.2 % (12.1-15.1) 04/30/24 17:38 Plt Count 317 10^3/cmm (157-399) 04/30/24 17:38 MPV 9.3 fL (7.4-10.4) 04/30/24 17:38 Neut % (Auto) 72.1 % 04/30/24 17:38 Lymph % (Auto) 15.3 % 04/30/24 17:38 [place] % (Auto) 9.1 % 04/30/24 17:38 Eos % (Auto) 2.4 % 04/30/24 17:38 Baso % (Auto) 0.7 % 04/30/24 17:38 Neut # (Auto) 6.02 10^3/uL (1.8-7.7) 04/30/24 17:38 Lymph # (Auto) 1.3 10^3/uL (0.8-4.8) 04/30/24 17:38 [place] # (Auto) 0.8 10^3/uL (0.2-0.9) 04/30/24 17:38 Eos # (Auto) 0.2 10^3/uL (0.0-0.8) 04/30/24 17:38 Baso # (Auto) 0.1 10^3/uL (0.0-0.1) 04/30/24 17:38 Nucleated RBC % (auto) 0 % 04/30/24 17:38 Nucleated RBCs # 0.0 /100WBC 04/30/24 17:38 PT 13.80 SECONDS (12.1-14.9) 04/30/24 17:38 INR 1.03 (0.8-1.2) 04/30/24 17:38 APTT 39.4 SECONDS (23.9-36.7) H 04/30/24 17:38 Specimen Type Arterial 04/30/24 17:47 Sample Site Brachial, left 04/30/24 17:47 ABG pH 7.48 (7.35-7.45) H 04/30/24 17:47 ABG pCO2 45.2 mmHg (35-45) H 04/30/24 17:47 ABG pO2 52.1 mmHg (80.0-100.0) L 04/30/24 17:47 ABG PO2/FiO2 Ratio 248 04/30/24 17:47 ABG HCO3 33.5 mmol/L (22-26) H 04/30/24 17:47 ABG O2 Saturation 88.7 04/30/24 17:47 ABG Base Excess 8.5 mmol/L (-2.0-2.0) H 04/30/24 17:47 Kayden Test Pos 04/30/24 17:47 A-a O2 Gradient 5.5 mmHg (5-10) 04/30/24 17:47 Hematocrit 52.0 % (42-52) 04/30/24 17:47 Hgb O2 Saturation 87.7 % (95-100) L 04/30/24 17:47 Carboxyhemoglobin 0.8 %THgb (0.4-20.1) 04/30/24 17:47 Methemoglobin 0.3 % (0.4-1.5) L 04/30/24 17:47 Total Hemoglobin 17.0 g/dL (14-18) 04/30/24 17:47 Sodium 138.0 mmol/L (131-143) 04/30/24 17:47 Potassium 4.0 mmol/L (3.5-5.0) 04/30/24 17:47 Glucose 115.0 mg/dL (70-115) 04/30/24 17:47 Ionized Calcium 1.2 mmol/L (1.1-1.4) 04/30/24 17:47 O2 Delivery Device Room air 04/30/24 17:47 FiO2 21.0 % 04/30/24 17:47 Metal Fabricating Shop Helper ID Cak 04/30/24 17:47 Sodium 136 mmol/L (136-145) 04/30/24 17:38 Potassium 4.5 mmol/L (3.5-5.1) 04/30/24 17:38 Chloride 96 mmol/L (98-107) L 04/30/24 17:38 Carbon Dioxide 31 mmol/L (22-29) H 04/30/24 17:38 Anion Gap 13.5 (5-19) 04/30/24 17:38 BUN 17 mg/dL (8-23) 04/30/24 17:38 Creatinine 0.8 mg/dL (0.7-1.2) 04/30/24 17:38 GFR Calculation 95.6 mL/min (90-130) 04/30/24 17:38 Glucose 125 mg/dL (65-115) H 04/30/24 17:38 Calculated Osmolality 285 mOsm/kg (285-295) 04/30/24 17:38 Calcium 9.1 mg/dL (8.5-10.5) 04/30/24 17:38 Total Bilirubin 0.3 mg/dL (0.15-1.2) 04/30/24 17:38 AST 25 U/L (0-40) 04/30/24 17:38 ALT 39 U/L (0-41) 04/30/24 17:38 Alkaline Phosphatase 99 U/L (40-130) 04/30/24 17:38 Troponin T Baseline 13 ng/L (0-15) 04/30/24 17:38 Total Protein 7.7 g/dL (6.6-8.7) 04/30/24 17:38 Albumin 3.8 g/dL (3.5-5.2) 04/30/24 17:38 Globulin 3.9 g/dL (1.3-4.6) 04/30/24 17:38 Lipase 14 U/L (13-60) 04/30/24 17:38 Urine Color Dark yellow (Yellow) A 04/30/24 18:03 Urine Appearance Slightly cloudy (CLEAR) 04/30/24 18:03 Urine pH 8 (5-7) H 04/30/24 18:03 Ur Specific [place] 1.010 (1.005-1.030) 04/30/24 18:03 Urine Protein Neg (Negative) 04/30/24 18:03 Urine Glucose (UA) Norm (Normal) 04/30/24 18:03 Urine Ketones Negative (Negative) 04/30/24 18:03 Urine Blood 2+ (Negative) H 04/30/24 18:03 Urine Nitrate Negative (Negative) 04/30/24 18:03 Urine Bilirubin Neg (Negative) 04/30/24 18:03 Urine Urobilinogen 1 mg/dL (Negative) H 04/30/24 18:03 Ur Leukocyte Esterase Negative (Negative) 04/30/24 18:03 Urine RBC 5-10 /hpf (0-2) H 04/30/24 18:03 Urine WBC 0-4 /hpf (0-5) H 04/30/24 18:03 Ur Squamous Epith Cells None /hpf (0-5) 04/30/24 18:03 Amorphous Sediment Not Reportable 04/30/24 18:03 Urine Bacteria Trace /hpf (NONE) 04/30/24 18:03 All radiology interpretation(s) finalized by discharge Discharge Plan Discharge Patient Disposition: Home Clinical Impression: Acute exacerbation of chronic obstructive airways disease Condition: Stable Prescriptions: New prednisone 20 mg tablet 60 mg PO ONCE 5 Days Qty: 15 0RF azithromycin 500 mg tablet 500 mg PO DAILY 5 Days Qty: 5 0RF No Action (DME) oxygen-air delivery systems Device See Rx Instructions .ROUTE Rx Instructions: As directed doxycycline hyclate 100 mg tablet 100 mg PO BID Qty: 30 3RF Spiriva Respimat 2.5 mcg/actuation mist 2 puff inhalation DAILY Qty: 4 5RF budesonide-formoterol [Symbicort] 160-4.5 mcg/actuation HFA aerosol inhaler 2 puff inhalation BID Qty: 10.2 5RF albuterol sulfate 90 mcg/actuation HFA aerosol inhaler 2 puff inhalation Q6H PRN (Reason: Rescue shortness of breath or wheezing inhaler) Qty: 8.5 5RF montelukast [Singulair] 10 mg tablet 10 mg PO DAILY Qty: 30 5RF meloxicam 7.5 mg tablet 7.5 mg PO DAILY PRN (Reason: arthritis pain) Qty: 30 3RF lisinopril 5 mg tablet 5 mg PO DAILY Qty: 30 5RF potassium chloride 10 mEq tablet extended release 10 meq PO DAILY Qty: 30 5RF Rx Instructions: take with water pill nortriptyline 25 mg capsule 25 mg PO BEDTIME Qty: 30 5RF prednisone 20 mg tablet 40 mg PO DAILY Qty: 10 0RF furosemide [Lasix] 20 mg tablet 20 mg PO QAM Qty: 30 5RF Rx Instructions: weight daily (DME) Nebulizer w/ tubing and supplies See Rx Instructions .Route .MEDSUPPLY Qty: 1 1RF Rx Instructions: As directed (DME) portable oxygen tank w/nasel canula and tubing See Rx Instructions .Route .MEDSUPPLY Qty: 1 5RF Rx Instructions: As directed acetaminophen 325 mg Tablet 650 mg PO Q6H PRN (Reason: Mild/Mod Pain Or Temp >/= 101) Qty: 30 3RF Discharge Orders: Discharge ED (Routine); Ordered 04/30/24 Ordered By: Augie Easton Referrals: Wellington Savage MD [Primary Care Provider] - Discharge Diet: Usual diet Discharge Activity: Increase activity as tolerated Patient Instructions: COPD (Chronic Obstructive Pulmonary Disease) (ED) Activity Restrictions/Additional Instructions: Use your oxygen at night as instructed. Take steroids and azithromycin as prescribed. If you develop any chest pain, worsening shortness of breath, or other concerning symptoms, please return for reevaluation. Otherwise recommend following up with primary care to discuss ED visit and for further evaluation. Coding Level of Care Code ED Ppa Teacher for Sarah Davidson
[2024-04-30] MEDS: ipratropium-albuterol 3 mL Neb INHALATION (17:43)
[2024-04-30 17:46] VITALS: PULSE 100; RESP 18; O2SAT 91
[2024-04-30 17:54] VITALS: PULSE 107
[2024-04-30 17:54] LABS: Basophils # 0.1 10^3/uL (0.0-0.1); Basophils % 0.7 %; Eosinophils # 0.2 10^3/uL (0.0-0.8); Eosinophils % 2.4 %; Hematocrit 52.9 % (37-53); Lymphocytes # 1.3 10^3/uL (0.8-4.8); Lymphocytes % 15.3 %; Mean Corpuscular HGB Conc 31.2 g/dL (30-55); Mean Corpuscular Hemoglobin 27.5 pg (27-33); Mean Corpuscular Volume 88.2 fl (82-101); Mean Platelet Volume 9.3 fL (7.4-10.4); Monocytes # 0.8 10^3/uL (0.2-0.9); Monocytes % 9.1 %; Neutrophils # 6.02 10^3/uL (1.8-7.7); Neutrophils % 72.1 %; Nucleated Red Blood Cells % 0 %; Platelet Count 317 10^3/cmm (157-399); Red Cell Distribution Width 14.2 % (12.1-15.1); White Blood Count 8.35 10^3/uL (3.29-11.43)
[2024-04-30 17:56] LABS: INR 1.03 (0.8-1.2)
[2024-04-30 17:57] LABS: Partial Thromboplastin Time 39.4 SECONDS (23.9-36.7)
[2024-04-30 17:58] LABS: ABG PCO2 45.2 mmHg (35-45); ABG PH Result 7.48 (7.35-7.45); Alveolar-Arterial Oxygen Gradi 5.5 mmHg (5-10); Base Excess ABG 8.5 mmol/L (-2.0-2.0); Blood Gas Allen Test Pos; Blood Gas Operator Identificat CAK; Blood Gas Sample Site Brachial, left; Blood Gas Sample Type Arterial; Carboxyhemoglobin 0.8 %THgb (0.4-20.1); HCO3 ABG 33.5 mmol/L (22-26); HGB O2 Sat 87.7 % (95-100); Ionized Calcium Level - ABG 1.2 mmol/L (1.1-1.4); Methemoglobin 0.3 % (0.4-1.5); Oxygen Device ROOM AIR; Oxygen Saturation ABG 88.7; PO2 ABG 52.1 mmHg (80.0-100.0); PO2 FiO2 Ratio Arterial Blood 248
[2024-04-30 18:03] LABS: Alanine Aminotransferase 39 U/L (0-41); Albumin Level 3.8 g/dL (3.5-5.2); Alkaline Phosphatase 99 U/L (40-130); Anion Gap 13.5 (5-19); Aspartate Amino Transferase 25 U/L (0-40); Blood Urea Nitrogen 17 mg/dL (8-23); Calcium 9.1 mg/dL (8.5-10.5); Carbon Dioxide 31 mmol/L (22-29); Chloride 96 mmol/L (98-107); Globulin 3.9 g/dL (1.3-4.6); Glomerular Filtration Rate 95.6 mL/min (90-130); Glucose 125 mg/dL (65-115); Lipase 14 U/L (13-60); Osmolality Calculated 285 mOsm/kg (285-295); Potassium 4.5 mmol/L (3.5-5.1); Sodium 136 mmol/L (136-145); Total Bilirubin 0.3 mg/dL (0.15-1.2); Total Protein 7.7 g/dL (6.6-8.7)
[2024-04-30 18:05] LABS: Troponin(5th) Baseline 13 ng/L (0-15)
[2024-04-30 18:14] VITALS: BP 122/86; PULSE 107; RESP 24; O2SAT 94
[2024-04-30 18:30] VITALS: BP 107/71; PULSE 104; RESP 21; O2SAT 94
[2024-04-30 18:34] LABS: Add Urine Microscopic? YES; Bacteria Urine TRACE /hpf; Bilirubin Urine Neg (Negative); Blood Urine 2+ (Negative); Glucose Urine UA Norm (Normal); Ketones Urine Negative (Negative); Leukocyte Esterase Urine Negative (Negative); Nitrate Urine Negative (Negative); Protein Urine Neg (Negative); Urine Appearance Slightly Cloudy (CLEAR); Urine Color Dark Yellow (Yellow); Urobilinogen Urine 1 mg/dL (Negative); WBC Urine 0-4 /hpf (0-5); pH Urine 8 (5-7)
[2024-04-30 18:35] LABS: Add Urine Culture? No
[2024-04-30] MEDS: predniSONE 20 mg Tablet 60 MG PO (19:13)
[2024-04-30] MEDS: azithromycin 250 mg Tablet 500 MG PO (19:13)
== END 2024-04-30 19:22 | disposition home or self-care (01) ==
PROVIDERS: Emergency Provider Physician Assistant; PCP Family Medicine Adult Medicine
DX: J44.1 Chronic obstructive pulmonary disease with (acute) exacerbation (principal); N18.2 Chronic kidney disease, stage 2 (mild); F17.210 Nicotine dependence, cigarettes, uncomplicated
CPT/HCPCS: 36600; 71045; 80051; 80053; 81001; 82330; 82805; 83690; 84484; 85025; 85610; 85730; 93005; 94640; 99285; J7512; Q0144

== ENCOUNTER 2024-08-11 15:09 | Emergency (ER) | payer MEDICARE, SELFPAY ==
[2024-08-11 15:16] VITALS: BP 114/82; PULSE 92; RESP 17; TEMP 36.6; O2SAT 92; BMI 30.4
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
[2024-08-11 15:57] LABS: ABG PH Result 7.35 (7.35-7.45); Arterial Blood Gas Hematocrit 47.1 % (42-52); Base Excess ABG 6.5 mmol/L (-2.0-2.0); Blood Gas Allen Test Pos; Blood Gas Operator Identificat BROMA; Blood Gas Sample Site Radial, right; Blood Gas Sample Type Arterial; Carboxyhemoglobin 1.9 %THgb (0.4-20.1); HCO3 ABG 34.6 mmol/L (22-26); Methemoglobin 1.1 % (0.4-1.5); Oxygen Device NC; PO2 ABG 64.9 mmHg (80.0-100.0); Total Hemoglobin 15.4 g/dL (14-18)
[2024-08-11 16:05] VITALS: PULSE 92; RESP 18; O2SAT 93
[2024-08-11] MEDS: ipratropium-albuterol 3 mL Neb INHALATION (16:05)
[2024-08-11 16:10] LABS: Basophils % 0.4 %; Eosinophils # 0.2 10^3/uL (0.0-0.8); Eosinophils % 1.6 %; Hematocrit 49.5 % (37-53); Lymphocytes # 1.1 10^3/uL (0.8-4.8); Lymphocytes % 10.2 %; Mean Corpuscular HGB Conc 30.5 g/dL (30-55); Mean Corpuscular Hemoglobin 27.6 pg (27-33); Mean Corpuscular Volume 90.3 fl (82-101); Mean Platelet Volume 9.6 fL (7.4-10.4); Monocytes % 10.1 %; Neutrophils # 7.99 10^3/uL (1.8-7.7); Neutrophils % 77.2 %; Nucleated Red Blood Cells % 0 %; Platelet Count 278 10^3/cmm (157-399); Red Blood Count 5.48 10^6/uL (3.85-5.65); Red Cell Distribution Width 14.4 % (12.1-15.1); White Blood Count 10.34 10^3/uL (3.29-11.43)
[2024-08-11 16:38] LABS: Alanine Aminotransferase 23 U/L (0-41); Albumin Level 3.2 g/dL (3.5-5.2); Alkaline Phosphatase 102 U/L (40-130); Anion Gap 9.2 (5-19); Aspartate Amino Transferase 18 U/L (0-40); Blood Urea Nitrogen 19 mg/dL (8-23); Calcium 8.1 mg/dL (8.5-10.5); Carbon Dioxide 33 mmol/L (22-29); Chloride 102 mmol/L (98-107); Globulin 3.9 g/dL (1.3-4.6); Glomerular Filtration Rate 111.5 mL/min (90-130); Glucose 97 mg/dL (65-115); NT Pro B Type Natriuretic Pept 213 pg/mL (0-125); Osmolality Calculated 292 mOsm/kg (285-295); Potassium 4.2 mmol/L (3.5-5.1); Sodium 140 mmol/L (136-145); Total Bilirubin 0.3 mg/dL (0.15-1.2); Total Protein 7.1 g/dL (6.6-8.7)
[2024-08-11 16:46] LABS: ABG PCO2 62.5 mmHg (35-45)
[2024-08-11] MEDS: methylPREDNISolone sod succ 125 mg/2 mL INJ IV (17:10)
[2024-08-11 17:11] VITALS: BP 117/77; PULSE 91; RESP 16; O2SAT 93
[2024-08-11 18:00] LABS: SARS Covid-2 Antigen negative (Negative)
[2024-08-11 18:01] LABS: Influenza A by IFA Negative (Negative); Influenza B by IFA Negative (Negative)
[2024-08-11 18:36] VITALS: BP 122/82; PULSE 93; O2SAT 92
--- NOTE | 2024-08-11 18:36 | ED_ITS ---
HPI - SOB/Dyspnea 2 General: Chief Complaint: Shortness of Breath/Dyspnea Stated Complaint: sob Time Seen by Provider: 08/11/24 15:10 History of Present Illness: HPI Narrative: This patient is a 68-year-old white male who presents to the emergency department stating that his cold symptoms for the past 4 to 5 days. He has been more short of breath than usual. No chest pain. Cough has been productive of yellow phlegm. Patient does have home oxygen which he uses occasionally and he did start using it today. Past medical history is significant for COPD. Related Data Home Medications Medication Instructions Recorded Confirmed oxygen-air delivery systems 12/09/22 12/09/22 Previous Rx's Medication Instructions Recorded acetaminophen 325 mg tablet 650 mg (2 x 325 mg) PO Q6H PRN 01/24/22 Mild/Mod Pain Or Temp >/= 101 #30 tabs albuterol sulfate 90 mcg/actuation 2 puff inhalation Q6H PRN Rescue 11/16/22 aerosol inhaler shortness of breath or wheezing inhaler #8.5 grams budesonide-formoterol HFA 160 2 puff inhalation BID breathing 11/16/22 mcg-4.5 mcg/actuation aerosol #10.2 grams inhaler (Symbicort) furosemide 20 mg tablet (Lasix) 20 mg PO QAM edema #30 tabs 11/16/22 lisinopril 5 mg tablet 5 mg PO DAILY edema #30 tabs 11/16/22 meloxicam 7.5 mg tablet 7.5 mg PO DAILY PRN arthritis pain 11/16/22 #30 tabs montelukast 10 mg tablet 10 mg PO DAILY breathing #30 tabs 11/16/22 (Singulair) nortriptyline 25 mg capsule 25 mg PO BEDTIME sleep #30 caps 11/16/22 potassium chloride 10 mEq 10 meq PO DAILY edema #30 tabs 11/16/22 tablet,extended release prednisone 20 mg tablet 40 mg (2 x 20 mg) PO DAILY #10 tabs 11/16/22 doxycycline hyclate 100 mg tablet 100 mg PO BID chronic bronchitis 12/09/22 #30 tabs tiotropium bromide 2.5 2 puff inhalation DAILY breathing 12/09/22 mcg/actuation mist for inhalation #4 grams (Spiriva Respimat) Nebulizer w/ tubing and supplies #1 ea 12/10/22 portable oxygen tank w/nasel #1 ea 12/10/22 canula and tubing albuterol sulfate 90 mcg/actuation 2 inh inhalation Q4H PRN shortness 08/11/24 aerosol inhaler of breath or wheezing #8.5 grams doxycycline hyclate 100 mg capsule 100 mg PO BID 10 days #20 caps 08/11/24 prednisone 5 mg tablets in a dose See Rx Instructions PO .COMPLEX 08/11/24 pack #21 ea Allergies Allergy/AdvReac Type Severity Reaction Status Date / Time No Known Allergies Allergy Unverified 12/09/22 11:40 Review of Systems 2 General: Reports: 10 or more systems reviewed and unremarkable except in HPI and below Resp: Reports: dyspnea and productive cough PFSH ED 2 PFSH: Medical History History of pulmonary edema Hordeolum externum left upper eyelid Hematuria syndrome Insomnia Bilateral lower extremity edema CKD (chronic kidney disease) stage 2, GFR 60-89 ml/min Acquired bilateral knee deformity Chronic dislocation of right shoulder Chronic pain due to injury Neuropathy Osteoarthritis involving multiple joints on both sides of body Ileus COPD (chronic obstructive pulmonary disease) Acute kidney injury superimposed on CKD Pneumonia Social History Smoking and tobacco/nicotine status: current some day tobacco/nicotine user (3 cigarettes or less a day. some not at all.) Alcohol intake: unknown Physical Exam 2 Const: COMMON NORMALS: no acute distress, patient oriented x3 and no limitations GENERAL APPEARANCE: cooperative and comfortable HENMT: COMMON NORMALS: normocephalic, atraumatic, Normal nasal mucous membranes and turbinates present, moist oral mucous membranes and oropharynx normal HEAD & SCALP: normal to inspection, normocephalic and atraumatic F DASHAWN & SINUS: normal facial exam NOSE: Normal nasal mucous membranes and turbinates present Eye: COMMON NORMALS: Equal, round and reactive pupils present, EOMs intact bilaterally and conjunctivae normal GENERAL EYE: appearance normal, both eyes and all related structures CONJUNCTIVA: Yes conjunctivae normal PUPIL: Yes Equal, round and reactive pupils present Neck/C-Spine: COMMON NORMALS: supple and no JVD Chest: COMMONS NORMALS: normal inspection of the chest Resp: COMMON NORMALS: normal respiratory effort AUSCULTATION: rhonchi Cardio: COMMON NORMALS: no JVD, regular rate, regular rhythm, No gallops present (Cardio), No murmurs present (Cardio) and No rub (Cardio) RATE: r egular rate RHYTHM: regular rhythm GI: COMMON NORMALS: Normal to inspection, nondistended, normoactive bowel sounds present, Soft to palpation and non-tender AUSCULTATION: Yes normoactive bowel sounds PALPATION: Yes Soft to palpation : COMMON NORMALS: Yes no CVA tenderness BLADDER/KIDNEY EXAM: Yes no CVA tenderness Back/Pelvis: COMMON NORMALS: no CVA tenderness and thoracic and lumbar spine normal to inspection Extremity: COMMON NORMALS: normal to inspection Neuro: COMMON NORMALS: patient oriented x3 and CN's II-XII intact bilaterally Psych: COMMON NORMALS: mental status grossly normal, Normal thought process present and cooperative THOUGHT PROCESS: Normal thought process present Skin: COMMON NORMALS: no rashes or lesions noted, turgor normal and no jaundice GENERAL SKIN EXAM: no rashes or lesions noted and turgor normal Course 2 Vital Signs: Vital signs: Vital Signs Temperature 97.8 F 08/11/24 15:16 Pulse Rate 91 08/11/24 17:11 Respiratory Rate 16 08/11/24 17:11 Blood Pressure 117/77 08/11/24 17:11 Pulse Oximetry 93 08/11/24 17:11 Oxygen Delivery Me thod Nasal Cannula 08/11/24 17:11 Oxygen Flow Rate 2 08/11/24 17:11 MDM - SOB/Dyspnea Medical Decision Making Arterial blood gases on 2 L per nasal cannula revealed pH of 7.35 with a pCO2 of 35 and a pO2 of 65. CBC was normal. CMP normal. BNP was 213. Influenza and COVID-negative. Chest x-ray reveals mild left lower lobe infiltrate suspicious for pneumonia. Patient was given a DuoNeb treatment and 125 mg of Solu-Medrol. He is feeling significantly better. He was also given 100 mg of doxycycline p.o. Patient states he is feeling well enough to go home and would like to go home. I did place him on doxycycline. He needed a refill on his albuterol inhaler and also placed him on a prednisone burst and taper. Recommended he follow-up with his primary care physician next week for recheck. He was discharged in stable condition. Lab Data 08/11/24 15:59 08/11/24 15:59 Labs/Radiology: Radiology Impressions Chest X-Ray 08/11/24 15:36 IMPRESSION: Increased markings with patchy infiltrate mid and lower left lung that is new from prior exam, suggesting pneumonia on the left and for follow-up. Laboratory Results WBC 10.34 10^3/uL (3.29-11.43) 08/11/24 15:59 RBC 5.48 10^6/uL (3.85-5.65) 08/11/24 15:59 Hgb 15.10 g/dL (11.27-16.99) 08/11/24 15:59 Hct 49.5 % (37-53) 08/11/24 15:59 MCV 90.3 fl (82-101) 08/11/24 15:59 MCH 27.6 pg (27-33) 08/11/24 15:59 MCHC 30.5 g/dL (30-55) 08/11/24 15:59 RDW 14.4 % (12.1-15.1) 08/11/24 15:59 Plt Count 278 10^3/cmm (157-399) 08/11/24 15:59 MPV 9.6 fL (7.4-10.4) 08/11/24 15:59 Neut % (Auto) 77.2 % 08/11/24 15:59 Lymph % (Auto) 10.2 % 08/11/24 15:59 [place] % (Auto) 10.1 % 08/11/24 15:59 Eos % (Auto) 1.6 % 08/11/24 15:59 Baso % (Auto) 0.4 % 08/11/24 15:59 Neut # (Auto) 7.99 10^3/uL (1.8-7.7) H 08/11/24 15:59 Lymph # (Auto) 1.1 10^3/uL (0.8-4.8) 08/11/24 15:59 [place] # (Auto) 1.0 10^3/uL (0.2-0.9) H 08/11/24 15:59 Eos # (Auto) 0.2 10^3/uL (0.0-0.8) 08/11/24 15:59 Baso # (Auto) 0.0 10^3/uL (0.0-0.1) 08/11/24 15:59 Nucleated RBC % (auto) 0 % 08/11/24 15:59 Nucleated RBCs # 0.0 /100WBC 08/11/24 15:59 Specimen Type Arterial 08/11/24 15:45 Sample Site Radial, right 08/11/24 15:45 ABG pH 7.35 (7.35-7.45) 08/11/24 15:45 ABG pCO2 62.5 mmHg (35-45) H* 08/11/24 15:45 ABG pO2 64.9 mmHg (80.0-100.0) L 08/11/24 15:45 ABG HCO3 34.6 mmol/L (22-26) H 08/11/24 15:45 ABG Base Excess 6.5 mmol/L (-2.0-2.0) H 08/11/24 15:45 [place] Test Pos 08/11/24 15:45 Hematocrit 47.1 % (42-52) 08/11/24 15:45 Hgb O2 Saturation 90.0 % (95-100) L 08/11/24 15:45 Carboxyhemoglobin 1.9 %THgb (0.4-20.1) 08/11/24 15:45 Methemoglobin 1.1 % (0.4-1.5) 08/11/24 15:45 Total Hemoglobin 15.4 g/dL (14-18) 08/11/24 15:45 O2 Delivery Device Nc 08/11/24 15:45 O2 Liters/Min 2.0 % 08/11/24 15:45 Company Laundry Worker ID Broma 08/11/24 15:45 Sodium 140 mmol/L (136-145) 08/11/24 15:59 Potassium 4.2 mmol/L (3.5-5.1) 08/11/24 15:59 Chloride 102 mmol/L (98-107) 08/11/24 15:59 Carbon Dioxide 33 mmol/L (22-29) H 08/11/24 15:59 Anion Gap 9.2 (5-19) 08/11/24 15:59 BUN 19 mg/dL (8-23) 08/11/24 15:59 Creatinine 0.7 mg/dL (0.7-1.2) 08/11/24 15:59 GFR Calculation 111.5 mL/min (90-130) 08/11/24 15:59 Glucose 97 mg/dL (65-115) 08/11/24 15:59 Calculated Osmolality 292 mOsm/kg (285-295) 08/11/24 15:59 Calcium 8.1 mg/dL (8.5-10.5) L 08/11/24 15:59 Total Bilirubin 0.3 mg/dL (0.15-1.2) 08/11/24 15:59 AST 18 U/L (0-40) 08/11/24 15:59 ALT 23 U/L (0-41) 08/11/24 15:59 Alkaline Phosphatase 102 U/L (40-130) 08/11/24 15:59 NT-Pro-B Natriuret Pep 213 pg/mL (0-125) H 08/11/24 15:59 Total Protein 7.1 g/dL (6.6-8.7) 08/11/24 15:59 Albumin 3.2 g/dL (3.5-5.2) L 08/11/24 15:59 Globulin 3.9 g/dL (1.3-4.6) 08/11/24 15:59 Influenza Type A Ag Negative (Negative) 08/11/24 17:39 Influenza Type B Ag Negative (Negative) 08/11/24 17:39 SARS-CoV-2 Ag (Rapid) negative (Negative) 08/11/24 17:38 All radiology interpretation(s) finalized by discharge Discharge Plan Discharge Patient Disposition: Home Clinical Impression: Bronchitis Condition: Stable Prescriptions: New doxycycline hyclate 100 mg capsule 100 mg PO BID 10 Days Qty: 20 0RF albuterol sulfate 90 mcg/actuation HFA aerosol inhaler 2 inh inhalation Q4H PRN (Reason: shortness of breath or wheezing) Qty: 8.5 0RF prednisone 5 mg tablets,dose pack See Rx Instructions PO .COMPLEX Qty: 21 0RF Rx Instructions: prednisone 5 mg: take 8 tablets (40 mg) on Day 1; 7 tablets (35 mg) on Day 2; then decrease by 1 tablet every day until finished No Action (DME) oxygen-air delivery systems Device See Rx Instructions .ROUTE Rx Instructions: As directed doxycycline hyclate 100 mg tablet 100 mg PO BID Qty: 30 3RF Spiriva Respimat 2.5 mcg/actuation mist 2 puff inhalation DAILY Qty: 4 5RF budesonide-formoterol [Symbicort] 160-4.5 mcg/actuation HFA aerosol inhaler 2 puff inhalation BID Qty: 10.2 5RF albuterol sulfate 90 mcg/actuation HFA aerosol inhaler 2 puff inhalation Q6H PRN (Reason: Rescue shortness of breath or wheezing inhaler) Qty: 8.5 5RF montelukast [Singulair] 10 mg tablet 10 mg PO DAILY Qty: 30 5RF meloxicam 7.5 mg tablet 7.5 mg PO DAILY PRN (Reason: arthritis pain) Qty: 30 3RF lisinopril 5 mg tablet 5 mg PO DAILY Qty: 30 5RF potassium chloride 10 mEq tablet extended release 10 meq PO DAILY Qty: 30 5RF Rx Instructions: take with water pill nortriptyline 25 mg capsule 25 mg PO BEDTIME Qty: 30 5RF prednisone 20 mg tablet 40 mg PO DAILY Qty: 10 0RF furosemide [Lasix] 20 mg tablet 20 mg PO QAM Qty: 30 5RF Rx Instructions: weight daily (DME) Nebulizer w/ tubing and supplies See Rx Instructions .Route .MEDSUPPLY Qty: 1 1RF Rx Instructions: As directed (DME) portable oxygen tank w/nasel canula and tubing See Rx Instructions .Route .MEDSUPPLY Qty: 1 5RF Rx Instructions: As directed acetaminophen 325 mg Tablet 650 mg PO Q6H PRN (Reason: Mild/Mod Pain Or Temp >/= 101) Qty: 30 3RF Discharge Orders: Discharge ED (Routine); Ordered 08/11/24 Ordered By: Lui Vitale Referrals: Wellington Savage MD [Primary Care Provider] - Patient Instructions: Chronic Bronchitis (DC) Activity Restrictions/Additional Instructions: Follow-up with your primary care physician in 1 week for recheck. Coding Level of Care Code ED Presser Machine for Sarah Davidson
[2024-08-11] MEDS: doxycycline 100 mg Tablet PO (18:38)
[2024-08-11 18:53] VITALS: BP 122/82; PULSE 93; O2SAT 92
== END 2024-08-11 18:55 | disposition home or self-care (01) ==
PROVIDERS: Emergency Provider Emergency Medicine; PCP Family Medicine Adult Medicine
DX: J40 Bronchitis, not specified as acute or chronic (principal); Z11.52 Encounter for screening for COVID-19; N18.2 Chronic kidney disease, stage 2 (mild); F17.210 Nicotine dependence, cigarettes, uncomplicated
CPT/HCPCS: 36415; 36600; 71045; 80053; 82805; 83880; 85025; 87426; 87804; 94640; 96374; 99284; J2919

== ENCOUNTER 2024-11-01 12:37 | Inpatient (IN) | payer MEDICARE, SELFPAY ==
[2024-11-01] VITALS (40 sets, daily range): BP systolic 97–148; BP diastolic 57–89; PULSE 85–116; RESP 17–91; TEMP 36.5–36.8; O2SAT 83–99; BMI 29.5; BMI 31.7
--- NOTE | 2024-11-01 | USCV_ITS ---
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 Age: 68 Gender: M : 1955 Exam Date: 11/01/2024 19:59 Ordering Phys: Regige Juan MD Technologist: RICARDA Exam Location: [facility] [place] Indication: BP: 133 / 83 HR: Rhythm: Sinus Technical Quality: MEASUREMENTS (Male / Female) Normal Values 2D ECHO LV Diastolic Diameter PLAX 3.2 cm 4.2 - 5.9 / 3.9 - 5.3 cm IVS Diastolic Thickness 1.3 cm 0.6 - 1.0 / 0.6 - 0.9 cm IVS Systolic Thickness 1.7 cm LVPW Diastolic Thickness 1.2 cm 0.6 - 1.0 / 0.6 - 0.9 cm LVPW Systolic Thickness 1.6 cm LVOT Diameter 1.8 cm LV Ejection Fraction 2D Teich 51.5 % LA Diameter 3.3 cm Aorta at Sinotubular Diameter 2.9 cm M-MODE LA Ao Ratio MM 1.1 AV Cusp Separation MM 1.2 cm FINDINGS Left Ventricle Normal left ventricular size and systolic function, EF 65%. Right Ventricle The right ventricle is normal in size and function. Right Atrium The right atrium is normal in size. Left Atrium Normal chamber sizes Mitral Valve Thickened mitral valve. Aortic Valve Thickened aortic valve. Tricuspid Valve Could not be visualized Pulmonic Valve Could not be visualized Pericardium No pericardial effusion. Aorta Normal aortic annulus size. IVC The inferior vena cava appears normal. CONCLUSIONS Normal left ventricular size and systolic function, EF 65%. Thickened mitral valve. Thickened aortic valve. There is no pericardial effusion. There are no intracardiac masses. Compared to the study from 01/13/2022 there may not be a significant change in the 2D findings Dr Fredrick Murphy MD [facility] (Electronically Signed) Final Date: 02 November 2024 19:29 S
--- NOTE | 2024-11-01 12:41 | ECG_ITS ---
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 Measurements Intervals Baring Rate: 106 P: 52 MA: 166 QRS: 46 QRSD: 90 T: 44 QT: 341 QTc: 455 Interpretive Statements SINUS TACHYCARDIA WITH OCCASIONAL SUPRAVENTRICULAR PREMATURE COMPLEXES POSSIBLE RIGHT VENTRICULAR CONDUCTION DELAY [RSR (QR) IN V1/V2] NONSPECIFIC ST & T-WAVE ABNORMALITY ABNORMAL RHYTHM ECG Compared to ECG 04/30/2024 17:25:44 Sinus rhythm no longer present T-wave abnormality still present Electronically Signed On 11-01-2024 16:08:18 DIESEL SERVICE TECHNICIAN by Sheldon Mri M.D. [email or web address]
[2024-11-01 12:50] LABS: ABG PCO2 95.7 mmHg (35-45); ABG PH Result 7.24 (7.35-7.45); Alveolar-Arterial Oxygen Gradi 18.5 mmHg (5-10); Arterial Blood Gas Hematocrit 49.7 % (42-52); Base Excess ABG 9.1 mmol/L (-2.0-2.0); Blood Gas Allen Test Pos; Blood Gas Operator Identificat MONRO; Blood Gas Sample Site Radial, right; Blood Gas Sample Type Arterial; Carboxyhemoglobin 1.5 %THgb (0.4-20.1); HCO3 ABG 41.4 mmol/L (22-26); HGB O2 Sat 91.1 % (95-100); Ionized Calcium Level - ABG 1.2 mmol/L (1.1-1.4); Methemoglobin 0.1 % (0.4-1.5); Oxygen Device NC; Oxygen Saturation ABG 92.7; PO2 ABG 68.8 mmHg (80.0-100.0); PO2 FiO2 Ratio Arterial Blood 152; Potassium Level - ABG 4.1 mmol/L (3.5-5.0); Total Hemoglobin 16.2 g/dL (14-18)
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
[2024-11-01] MEDS: ipratropium-albuterol 3 mL Neb INHALATION ×2 (13:02→19:55)
--- NOTE | 2024-11-01 13:04 | ED_ITS ---
HPI - SOB/Dyspnea 2 General: Chief Complaint: Shortness of Breath/Dyspnea Stated Complaint: resp distress Time Seen by Provider: 11/01/24 12:50 History of Present Illness: HPI Narrative: 68-year-old male presents emergency room complaining of shortness of breath. He is brought in by EMS were called for respiratory distress on arrival his daughter was with him. They had obtained oxygen from some other source and had him on oxygen cannula in bottle however EMS reports they believe the oxygen bottle is empty he was at 55% at the time when they arrived they suspect it was actually room air because the oxygen tank was empty. He is given 60 mg of Decadron and a DuoNeb this oxygen sats improved on arrival here he is much more awake and alert than what EMS first found him in the field he denies chest pain or abdominal pain he has had a productive cough wheezing and chest congestion last several days he denies fever. He states he usually is not on any oxygen. Associated symptoms: Reports chest congestion; Deny abdominal pain, chest pain or fever(s) Related Data Home Medications Medication Instructions Recorded Confirmed oxygen-air delivery systems 12/09/22 11/01/24 Previous Rx's Medication Instructions Recorded acetaminophen 325 mg tablet 650 mg (2 x 325 mg) PO Q6H PRN 01/24/22 Mild/Mod Pain Or Temp >/= 101 #30 tabs Nebulizer w/ tubing and supplies #1 ea 12/10/22 portable oxygen tank w/nasel #1 ea 12/10/22 canula and tubing albuterol sulfate 90 mcg/actuation 2 inh inhalation Q4H PRN shortness 08/11/24 aerosol inhaler of breath or wheezing #8.5 grams Allergies Allergy/AdvReac Type Severity Reaction Status Date / Time No Known Allergies Allergy Unverified 12/09/22 11:40 Review of Systems 2 Const: Denies: fever(s) or chills Card: Denies: chest pain Resp: Reports: dyspnea, non-productive cough, wheezing and chest congestion GI: Denies: abdominal pain : Denies: dysuria, urinary frequency or urinary urgency Musc: Denies: neck pain or back pain Skin/Breast: Denies: rash PFSH ED 2 PFSH: Medical History (Updated 11/01/24 @ 16:28 by Tushar Guillaume DO) Pneumonia History of pulmonary edema Hordeolum externum left upper eyelid Hematuria syndrome Insomnia Bilateral lower extremity edema CKD (chronic kidney disease) stage 2, GFR 60-89 ml/min Acquired bilateral knee deformity Chronic dislocation of right shoulder Chronic pain due to injury Neuropathy Osteoarthritis involving multiple joints on both sides of body Ileus COPD (chronic obstructive pulmonary disease) Acute kidney injury superimposed on CKD Social History Smoking and tobacco/nicotine status: current some day tobacco/nicotine user (3 cigarettes or less a day. some not at all.) Alcohol intake: unknown Physical Exam 2 Const: COMMON NORMALS: no acute distress GENERAL APPEARANCE: cooperative and comfortable ORIENTATION/CONSCIOUSNESS: Yes awake, Yes oriented to person, Yes oriented to place and Yes oriented to time HENMT: COMMON NORMALS: normocephalic, atraumatic and hearing grossly normal bilaterally HEAD & SCALP: normocephalic and atraumatic Resp: AUSCULTATION: rhonchi, wheezes and diminished lung sounds Cardio: COMMON NORMALS: regular rhythm and No murmurs present (Cardio) R ATE: tachycardic RHYTHM: regular rhythm GI: COMMON NORMALS: Soft to palpation and No hepatosplenomegaly present A USCULTATION: Yes normoactive bowel sounds PALPATION: Yes Soft to palpation, No Tenderness to palpation present (GI), No Guarding due to palpation present (GI) and Yes No hepatosplenomegaly present Extremity: COMMON NORMALS: normal to inspection, capillary refill normal, no clubbing, cyanosis or edema, no calf tenderness and no pedal edema Neuro: SENSORIUM/ORIENTATION: Yes oriented to person, Yes oriented to place and Yes oriented to time Skin: COMMON NORMALS: no rashes or lesions noted GENERAL SKIN EXAM: no rashes or lesions noted Course 2 Vital Signs: Vital signs: Vital Signs Temperature 98.3 F 11/01/24 12:46 Pulse Rate 103 H 11/01/24 14:01 Respiratory Rate 24 H 11/01/24 13:03 Blood Pressure 123/71 11/01/24 12:46 Pulse Oximetry 94 11/01/24 14:01 Oxygen Delivery Me thod BiPAP 11/01/24 13:03 Oxygen Flow Rate 6 11/01/24 12:46 Fraction of Inspir ed Oxygen 45 11/01/24 14:01 MDM - SOB/Dyspnea Medical Decision Making Acute hypercapnic respiratory failure. Patient improved with BiPAP. Will admit. No leukocytosis D-dimer and within normal limits some improvement after an hour on the BiPAP discussed Dr. Juan will admit to ICU. Medical Records I reviewed the patient's medical records. Lab Data I reviewed the patient's lab results. 11/01/24 13:41 11/01/24 13:41 Labs/Radiology: Radiology Impressions Chest X-Ray 11/01/24 12:50 IMPRESSION: 1. Decreased inspiration/low lung volumes with accentuation of pulmonary vascularity, with possible component of pulmonary vascular congestion as well. 2. Mild opacity right lung base at the diaphragm could reflect mild infiltrate and/or atelectasis. Possible associated trace effusion right costophrenic angle. Consider right basilar pneumonia. Laboratory Results WBC 8.30 10^3/uL (3.29-11.43) 11/01/24 13:41 RBC 5.45 10^6/uL (3.85-5.65) 11/01/24 13:41 Hgb 15.00 g/dL (11.27-16.99) 11/01/24 13:41 Hct 51.2 % (37-53) 11/01/24 13:41 MCV 93.9 fl (82-101) 11/01/24 13:41 MCH 27.5 pg (27-33) 11/01/24 13:41 MCHC 29.3 g/dL (30-55) L 11/01/24 13:41 RDW 14.0 % (12.1-15.1) 11/01/24 13:41 Plt Count 240 10^3/cmm (157-399) 11/01/24 13:41 MPV 9.3 fL (7.4-10.4) 11/01/24 13:41 Neut % (Auto) 75.0 % 11/01/24 13:41 Lymph % (Auto) 11.2 % 11/01/24 13:41 [place] % (Auto) 9.8 % 11/01/24 13:41 Eos % (Auto) 3.0 % 11/01/24 13:41 Baso % (Auto) 0.5 % 11/01/24 13:41 Neut # (Auto) 6.23 10^3/uL (1.8-7.7) 11/01/24 13:41 Lymph # (Auto) 0.9 10^3/uL (0.8-4.8) 11/01/24 13:41 [place] # (Auto) 0.8 10^3/uL (0.2-0.9) 11/01/24 13:41 Eos # (Auto) 0.3 10^3/uL (0.0-0.8) 11/01/24 13:41 Baso # (Auto) 0.0 10^3/uL (0.0-0.1) 11/01/24 13:41 Nucleated RBC % (auto) 0 % 11/01/24 13:41 Nucleated RBCs # 0.0 /100WBC 11/01/24 13:41 D-Dimer 0.51 ug/mLFEU (0-0.59) 11/01/24 12:46 Specimen Type Arterial 11/01/24 13:31 Sample Site Radial, right 11/01/24 13:31 ABG pH 7.30 (7.35-7.45) L 11/01/24 13:31 ABG pCO2 84.9 mmHg (35-45) H* 11/01/24 13:31 ABG pO2 50.8 mmHg (80.0-100.0) L 11/01/24 13:31 ABG PO2/FiO2 Ratio 127 11/01/24 13:31 ABG HCO3 42.0 mmol/L (22-26) H 11/01/24 13:31 ABG O2 Saturation 85.5 11/01/24 13:31 ABG Base Excess 11.2 mmol/L (-2.0-2.0) H 11/01/24 13:31 Kayden Test Pos 11/01/24 13:31 A-a O2 Gradient 17.7 mmHg (5-10) H 11/01/24 13:31 Hematocrit 47.7 % (42-52) 11/01/24 13:31 Hgb O2 Saturation 83.4 % (95-100) L 11/01/24 13:31 Carboxyhemoglobin 1.5 %THgb (0.4-20.1) 11/01/24 13:31 Methemoglobin 1.0 % (0.4-1.5) 11/01/24 13:31 Total Hemoglobin 15.6 g/dL (14-18) 11/01/24 13:31 Sodium 137.0 mmol/L (131-143) 11/01/24 13:31 Potassium 4.0 mmol/L (3.5-5.0) 11/01/24 13:31 Glucose 118.0 mg/dL (70-115) H 11/01/24 13:31 Ionized Calcium 1.2 mmol/L (1.1-1.4) 11/01/24 13:31 O2 Delivery Device Bipap 11/01/24 13:31 O2 Liters/Min 6.0 % 11/01/24 12:36 FiO2 40.0 % 11/01/24 13:31 Computer Numerical Control Programmer ID [id number] 11/01/24 13:31 Sodium 137 mmol/L (136-145) 11/01/24 13:41 Potassium 4.5 mmol/L (3.5-5.1) 11/01/24 13:41 Chloride 96 mmol/L (98-107) L 11/01/24 13:41 Carbon Dioxide 32 mmol/L (22-29) H 11/01/24 13:41 Anion Gap 13.5 (5-19) 11/01/24 13:41 BUN 15 mg/dL (8-23) 11/01/24 13:41 Creatinine 0.7 mg/dL (0.7-1.2) 11/01/24 13:41 GFR Calculation 111.5 mL/min (90-130) 11/01/24 13:41 Glucose 122 mg/dL (65-115) H 11/01/24 13:41 Calculated Osmolality 286 mOsm/kg (285-295) 11/01/24 13:41 Lactic Acid 0.9 mmol/L (0.5-2.2) 11/01/24 13:41 Calcium 8.7 mg/dL (8.5-10.5) 11/01/24 13:41 Total Bilirubin 0.3 mg/dL (0.15-1.2) 11/01/24 13:41 AST 19 U/L (0-40) 11/01/24 13:41 ALT 26 U/L (0-41) 11/01/24 13:41 Alkaline Phosphatase 87 U/L (40-130) 11/01/24 13:41 Troponin T Baseline 12 ng/L (0-15) 11/01/24 13:41 NT-Pro-B Natriuret Pep 47 pg/mL (0-125) 11/01/24 13:41 Total Protein 6.6 g/dL (6.6-8.7) 11/01/24 13:41 Albumin 3.7 g/dL (3.5-5.2) 11/01/24 13:41 Globulin 2.9 g/dL (1.3-4.6) 11/01/24 13:41 Coronavirus (PCR) Negative (Negative) 11/01/24 14:23 Influenza A (PCR) Negative (Negative) 11/01/24 14:23 Influenza Type B (PCR) Negative (Negative) 11/01/24 14:23 RSV (PCR) Negative (Negative) 11/01/24 14:23 All radiology interpretation(s) finalized by discharge Discharge Plan Discharge Admit Provider: Reggie Juan Clinical Impression: Acute respiratory failure with hypoxia and hypercapnia, CKD (chronic kidney disease) stage 2, GFR 60-89 ml/min, Pneumonia, COPD (chronic obstructive pulmonary disease) Condition: Stable Coding Level of Care Code ED Clock Assembler for Sarah Davidson
[2024-11-01 13:43] LABS: Alveolar-Arterial Oxygen Gradi 17.7 mmHg (5-10); Arterial Blood Gas Hematocrit 47.7 % (42-52); Base Excess ABG 11.2 mmol/L (-2.0-2.0); Blood Gas Allen Test Pos; Blood Gas Operator Identificat M0NR0; Blood Gas Sample Site Radial, right; Blood Gas Sample Type Arterial; Carboxyhemoglobin 1.5 %THgb (0.4-20.1); HGB O2 Sat 83.4 % (95-100); Ionized Calcium Level - ABG 1.2 mmol/L (1.1-1.4); Oxygen Device BIPAP; Oxygen Saturation ABG 85.5; PO2 ABG 50.8 mmHg (80.0-100.0); PO2 FiO2 Ratio Arterial Blood 127; Total Hemoglobin 15.6 g/dL (14-18)
[2024-11-01 13:44] LABS: ABG PCO2 84.9 mmHg (35-45)
[2024-11-01 13:53] LABS: Basophils % 0.5 %; Eosinophils # 0.3 10^3/uL (0.0-0.8); Hematocrit 51.2 % (37-53); Lymphocytes # 0.9 10^3/uL (0.8-4.8); Lymphocytes % 11.2 %; Mean Corpuscular HGB Conc 29.3 g/dL (30-55); Mean Corpuscular Hemoglobin 27.5 pg (27-33); Mean Corpuscular Volume 93.9 fl (82-101); Mean Platelet Volume 9.3 fL (7.4-10.4); Monocytes # 0.8 10^3/uL (0.2-0.9); Monocytes % 9.8 %; Neutrophils # 6.23 10^3/uL (1.8-7.7); Nucleated Red Blood Cells % 0 %; Platelet Count 240 10^3/cmm (157-399); Red Blood Count 5.45 10^6/uL (3.85-5.65)
[2024-11-01 14:11] LABS: Lactic Sepsis W/Reflex 0.9 mmol/L (0.5-2.2); Troponin(5th) Baseline 12 ng/L (0-15)
[2024-11-01 14:29] LABS: Alanine Aminotransferase 26 U/L (0-41); Albumin Level 3.7 g/dL (3.5-5.2); Alkaline Phosphatase 87 U/L (40-130); Aspartate Amino Transferase 19 U/L (0-40); Blood Urea Nitrogen 15 mg/dL (8-23); Calcium 8.7 mg/dL (8.5-10.5); Carbon Dioxide 32 mmol/L (22-29); Chloride 96 mmol/L (98-107); Creatinine Clr Calc Pharmacy 95.6511; Globulin 2.9 g/dL (1.3-4.6); Glomerular Filtration Rate 111.5 mL/min (90-130); Glucose 122 mg/dL (65-115); NT Pro B Type Natriuretic Pept 47 pg/mL (0-125); Osmolality Calculated 286 mOsm/kg (285-295); Sodium 137 mmol/L (136-145); Total Bilirubin 0.3 mg/dL (0.15-1.2); Total Protein 6.6 g/dL (6.6-8.7)
[2024-11-01 14:31] LABS: Anion Gap 13.5 (5-19); Potassium 4.5 mmol/L (3.5-5.1)
--- NOTE | 2024-11-01 14:51 | ECG_ITS ---
[facility]01 Pat Name: 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 Department: Room: Gender: Male Data Conversion Developer: : 1955 Requested By: Tushar Gonzalez Order Number: [id number] Reading MD: Sheldon Mir M.D. Measurements Intervals [place] Rate: 89 P: 63 WI: 143 QRS: 35 QRSD: 92 T: 26 QT: 375 QTc: 458 Interpretive Statements SINUS RHYTHM POSSIBLE RIGHT VENTRICULAR CONDUCTION DELAY [RSR (QR) IN V1/V2] NONSPECIFIC T-WAVE ABNORMALITY Compared to ECG 11/01/2024 12:41:31 Sinus tachycardia no longer present T-wave abnormality still present Electronically Signed On 11-01-2024 16:08:29 NEUROSURGICAL NURSE PRACTITIONER by Sheldon Mir M.D. [email or web address]
[2024-11-01 15:07] LABS: D Dimer 0.51 ug/mLFEU (0-0.59)
[2024-11-01 15:27] LABS: Covid PCR NEGATIVE (Negative); Influenza A NEGATIVE (Negative); Influenza B NEGATIVE (Negative); Respiratory Syncytial Virus Ce NEGATIVE (Negative)
[2024-11-01] MEDS: piperacillin-tazobactam 3.375 GM in sodium chloride 0.9% (plus) 50 ML IV (15:40)
--- NOTE | 2024-11-01 15:46 | P.HP_ITS ---
Providers/Chief Complaint 2 Admitting Physician: Reggie Juan Primary Care Provider: Wellington Savage MD Chief Complaint: resp distress History of Present Illness Pleasant 68-year-old gentleman with history of COPD, CKD, peripheral neuropathy, presented with worsening shortness of breath, productive cough with copious sputum, hypoxia at home. He and his tried to get him to use her oxygen, but he was hypoxic even with that. On arrival of EMS saturation 55%. With start of nonrebreather oxygen saturation increased up to the 90s. He has not had any fever, chills, but has had nausea and vomiting over the preceding week or so. Denies diarrhea. Denies melena or hematochezia. Has been taking ibuprofen. Does drink alcohol on and off small amounts, sometimes daily. Denies known history of sleep apnea. In ER found in acute respiratory failure with hypoxia and hypercapnia, respiratory acidosis, started on BiPAP support. Chest x-ray with decreased inspiratory lung volume with accentuation of pulmonary vascularity with possible component of pulmonary vascular congestion. Mild opacity right lung base at the diaphragm possibly mild infiltrate or atelectasis. Possible associated trace effusion right costophrenic angle. His also reports he has been having hyperglycemia 150-175 recently without history of diabetes. Review of Systems 2 Const: Denies: fever(s), chills, body aches or malaise ENMT: Denies: throat pain, oral sores or ear or mastoid pain Card: Reports: swelling of feet/ankles and dyspnea on exertion; Denies: chest pain or pre-syncope Resp: Reports: dyspnea and productive cough; Denies: hemoptysis GI: Reports: nausea and vomiting; Denies: abdominal pain, diarrhea, constipation, hematochezia or melena : Denies: flank pain, difficulty urinating, urinary frequency or hematuria Skin/Breast: Denies: rash Neuro: Denies: headache(s), dizziness or confusion Medications/Allergies Home Medications Medication Instructions Recorded Confirmed Last Taken Type acetaminophen 325 mg tablet 650 mg (2 x 325 mg) PO Q6H PRN 01/24/22 11/01/24 06/16/22 Rx Mild/Mod Pain Or Temp >/= 101 #30 tabs oxygen-air delivery systems 12/09/22 11/01/24 Unknown History Nebulizer w/ tubing and supplies #1 ea 12/10/22 11/01/24 Unknown Rx portable oxygen tank w/nasel #1 ea 12/10/22 11/01/24 Unknown Rx canula and tubing albuterol sulfate 90 mcg/actuation 2 inh inhalation Q4H PRN shortness 08/11/24 11/01/24 Unknown Rx aerosol inhaler of breath or wheezing #8.5 grams Allergies Allergy/AdvReac Type Severity Reaction Status Date / Time No Known Allergies Allergy Unverified 12/09/22 11:40 PFSH Acute 2 PFSH: Medical History (Updated 11/01/24 @ 16:28 by Tushar Guillaume DO) Pneumonia History of pulmonary edema Hordeolum externum left upper eyelid Hematuria syndrome Insomnia Bilateral lower extremity edema CKD (chronic kidney disease) stage 2, GFR 60-89 ml/min Acquired bilateral knee deformity Chronic dislocation of right shoulder Chronic pain due to injury Neuropathy Osteoarthritis involving multiple joints on both sides of body Ileus COPD (chronic obstructive pulmonary disease) Acute kidney injury superimposed on CKD Social History Smoking and tobacco/nicotine status: current some day tobacco/nicotine user (3 cigarettes or less a day. some not at all.) Alcohol intake: unknown Vitals/I&O/Wt Last Vital Signs Temp 98.3 F 11/01/24 12:46 Pulse 103 H 11/01/24 14:01 Resp 24 H 11/01/24 13:03 BP 123/71 11/01/24 12:46 Pulse Ox 94 11/01/24 14:01 O2 Del Method BiPAP 11/01/24 13:03 O2 Flow Rate 6 11/01/24 12:46 FiO2 45 11/01/24 14:01 Weight last 48 hrs Weight 90.718 kg Physical Exam 2 Narrative: Accompanied by his . Const: COMMON NORMALS: patient oriented x3 and alert GENERAL APPEARANCE: c ooperative NUTRITIONAL APPEARANCE: obese ORIENTATION/CONSCIOUSNESS: Yes awake HENMT: COMMON NORMALS: oropharynx normal OTHER: BiPAP mask Neck/C-Spine: COMMON NORMALS: no JVD Resp: COMMON NORMALS: normal respiratory effort AUSCULTATION: diminished lung sounds Cardio: COMMON NORMALS: no JVD, regular rhythm, S1 normal heart sound present, S2 normal heart sound present and No murmurs present (Cardio) RHYTHM: regular rhythm HEART SOUNDS: S1 normal heart sound present and S2 normal heart sound present GI: COMMON NORMALS: Normal to inspection, nondistended, normoactive bowel sounds present, Soft to palpation and non-tender PALPATION: Yes Soft to palpation Extremity: COMMON NORMALS: no joint enlargement GENERAL: Yes edema (Trace) Neuro: COMMON NORMALS: patient oriented x3 and moves all extremities S ENSORIUM/ORIENTATION: Yes alert Skin: COMMON NORMALS: no rashes or lesions noted GENERAL SKIN EXAM: no rashes or lesions noted Data 11/01/24 13:41 11/01/24 13:41 Micro: Microbiology 11/01/24 14:49 Blood Culture - Preliminary Blood SPECIMEN COLLECTED 11/01/24 14:49 Blood Culture - Preliminary Blood SPECIMEN COLLECTED A&P Assessment and plan (1) Acute respiratory failure with hypoxia and hypercapnia: Progressive dyspnea, productive cough, hypoxia down to 55%, with tachycardia, tachypnea, diminished respiration, with right lower lobe suspected pneumonia, recently with nausea and vomiting, possible aspiration pneumonia, additionally severe COPD exacerbation. Reviewed vitals, ABG, CBC, CMP, chest x-ray, ER provider note, discussed with ER provider. PCR COVID, flu, RSV have come back as well and are negative. With nausea and vomiting will request extended panel to assess for enterovirus. He has been started on BiPAP support. Continue. Admitting to ICU. Continue antibiotic coverage with Zosyn. Reviewed prior MRSA PCR, negative. Requested repeat. Will provide Solu-Medrol for COPD exacerbation, nebulizer treatments. Monitor for risk of hyperglycemia with steroid, risk of worsening gastritis, hypertension, encephalopathy. RT to assess and treat. Wean off BiPAP, target saturation 88-92%. Sputum culture, blood culture requested. Follow-up. Additionally with orthopnea, reporting ankle swelling, although currently only trace edema, denies chest pain pressure. Complete troponin EKG series. Will assess TTE. (2) Pneumonia: Possible aspiration pneumonia. Versus community-acquired pneumonia. Prior MRSA PCR negative. Will treat with Zosyn for now. As above. (3) COPD (chronic obstructive pulmonary disease): COPD with severe exacerbation with productive cough, copious phlegm, dyspnea, diminished air entry. Assess and treat respiratory failure as above. (4) Nausea and vomiting: Nausea and vomiting over the last week. He he does take NSAIDs, also drinks some alcohol, sometimes daily. Discussed with him and his , possible gastritis, PUD, discussed discontinuation of NSAID, avoiding alcohol. Discussed we will start on twice daily PPI, follow-up blood counts. Antiemetics as needed. (5) Smoking addiction: Discussed smoking cessation for 4 minutes. He has overall cut down to just about 1 cigarette only some days. Encouraged complete cessation. He declines nicotine replacement at current time, he will let us know in case he decides he needed. (6) Alcohol use: Monitor for any signs of withdrawal. Encourage cessation. (7) Hyperglycemia: Incidentally noted hyperglycemia by his over the last few days, blood glucose 1 50-1 75. No history of diabetes. Will check A1c. Monitor blood glucose, sliding scale insulin as needed. Risk of hyperglycemia with steroid. Plan CKD Peripheral neuropathy Attestations 2 Medical Necessity Statement*: Admission over 2 midnights anticipated for assessment and management of acute respiratory failure with hypoxia and hypercapnia, respiratory acidosis, pneumonia, possible aspiration pneumonia, nausea vomiting, and gentleman with underlying COPD not normally on oxygen, with underlying CKD, smoking, additional comorbidities. Diagnoses Acute respiratory failure with hypoxia and hypercapnia J96.01; J96.02 Pneumonia J18.9 COPD (chronic obstructive pulmonary disease) J44.9 Nausea and vomiting R11.2 Smoking addiction F17.200 Alcohol use F10.90 Hyperglycemia R73.9
--- NOTE | 2024-11-01 16:36 | PC.NURSE ---
Arrived from ED, AO x4 transferred self to bed
[2024-11-01 17:30] LABS: Glucose Point of Care 111 mg/dL (70-110)
[2024-11-01 17:31] LABS: Troponin 5 2HR 11.16 ng/L (0-15)
[2024-11-01 17:32] LABS: Troponin 5 2HR Delta -0.84 ABS# (0-10)
[2024-11-01] MEDS: methylPREDNISolone sod succ 40 mg/mL INJ IVP (17:37)
[2024-11-01] MEDS: pantoprazole 40 mg SDV IVP (17:37)
--- NOTE | 2024-11-01 18:41 | PC.NURSE ---
Patient not compliant with staff, demanding and cussing, refusing to wear bipap Dr. Singh aware
--- NOTE | 2024-11-01 18:44 | PC.NURSE ---
Goal O2 sat per Dr. Singh 88 to 92
[2024-11-01 19:03] LABS: Estmated Average Glucose 146; Hemoglobin A1C 6.7 % (4.0-6.0)
[2024-11-01 20:31] LABS: Troponin 5 6HR 12.32 ng/L (0-15); Troponin 5 6HR Delta 0.32 ng/L (0-12)
[2024-11-01 22:49] LABS: Bilirubin Urine Negative (Negative); Blood Urine 1+ (Negative); Glucose Urine UA Negative (Normal); Ketones Urine 1+ (Negative); Leukocyte Esterase Urine Negative (Negative); Nitrate Urine Negative (Negative); Protein Urine Negative (Negative); Specific Gravity, Urine 1.017 (1.005-1.030); Urine Appearance Clear (CLEAR); Urine Color Yellow (Yellow)
[2024-11-01 22:52] LABS: Add Urine Microscopic? YES; Bacteria Urine None Seen /hpf; Hyaline Casts Urine 0-4 /lpf; Squamous Epithelial Cell Urine 0-5 /hpf (0-5); WBC Urine 0-5 /hpf (0-5)
[2024-11-01 23:06] LABS: MRSA PCR OZH (swab) NOT DETECTED (Negative)
--- NOTE | 2024-11-01 23:09 | PC.NURSE ---
Refusing BiPAP: Patient continues to refuse BiPAP, this nurse educated patient on importance of BiPAP, patient states you're just going to let me , this nurse tried to re-educate patient on plan of care goals.
[2024-11-02] VITALS (49 sets, daily range): BP systolic 103–138; BP diastolic 71–89; PULSE 90–122; RESP 14–33; TEMP 36.6–36.9; O2SAT 84–97; BMI 31.7
[2024-11-02] MEDS: methylPREDNISolone sod succ 40 mg/mL INJ IVP ×3 (00:32→18:27)
[2024-11-02] MEDS: piperacillin-tazobactam 3.375 GM in sodium chloride 0.9% (plus) 50 ML IV ×4 (00:32→22:21)
[2024-11-02] MEDS: ipratropium-albuterol 3 mL Neb INHALATION ×4 (02:28→19:53)
[2024-11-02] MEDS: pantoprazole 40 mg SDV IVP ×2 (04:11→18:27)
[2024-11-02 04:54] LABS: Basophils % 0.1 %; Hematocrit 52.9 % (37-53); Lymphocytes # 0.4 10^3/uL (0.8-4.8); Lymphocytes % 4.9 %; Mean Corpuscular HGB Conc 30.2 g/dL (30-55); Mean Corpuscular Hemoglobin 27.4 pg (27-33); Mean Corpuscular Volume 90.6 fl (82-101); Mean Platelet Volume 9.2 fL (7.4-10.4); Monocytes # 0.1 10^3/uL (0.2-0.9); Monocytes % 0.8 %; Neutrophils # 7.45 10^3/uL (1.8-7.7); Neutrophils % 93.6 %; Nucleated Red Blood Cells % 0 %; Platelet Count 257 10^3/cmm (157-399); Red Blood Count 5.84 10^6/uL (3.85-5.65); Red Cell Distribution Width 13.9 % (12.1-15.1); White Blood Count 7.96 10^3/uL (3.29-11.43)
[2024-11-02 05:25] LABS: Anion Gap 11.9 (5-19); Blood Urea Nitrogen 14 mg/dL (8-23); Calcium 9.5 mg/dL (8.5-10.5); Carbon Dioxide 37 mmol/L (22-29); Chloride 93 mmol/L (98-107); Creatinine Clr Calc Pharmacy 98.9586; Glomerular Filtration Rate 95.6 mL/min (90-130); Glucose 148 mg/dL (65-115); Osmolality Calculated 287 mOsm/kg (285-295); Potassium 4.9 mmol/L (3.5-5.1); Sodium 137 mmol/L (136-145)
[2024-11-02 07:40] LABS: Glucose Point of Care 129 mg/dL (70-110)
[2024-11-02 13:30] LABS: Glucose Point of Care 142 mg/dL (70-110)
[2024-11-02] MEDS: insulin lispro 100 unit/1 mL SUBCUT ×2 (13:36→18:27)
--- NOTE | 2024-11-02 14:38 | P.PN_ITS ---
Subjective 2 Subjective: He is overall feeling better today compared to yesterday. Feels breathing is improving. He has so far weaned off BiPAP to nasal cannula. Still with productive cough. Vitals/I&O/Wt Last Vital Signs Temp 97.8 F 11/02/24 08:00 Pulse 117 H 11/02/24 14:15 Resp 20 H 11/02/24 14:05 BP 125/80 11/02/24 09:00 Pulse Ox 94 11/02/24 14:05 O2 Del Method Nasal Cannula 11/02/24 14:05 O2 Flow Rate 3 11/02/24 14:05 FiO2 45 11/02/24 05:38 11/01/24 11/02/24 11/02/24 22:59 06:59 14:59 Intake Total 50 / 50 50 / 100 720 / 720 Output Total 200 / 200 900 / 1100 400 / 400 Balance -150 / -150 -850 / -1000 320 / 320 Weight last 48 hrs Weight 97.522 kg Weight 97.522 kg Weight 90.718 kg Physical Exam 2 Const: COMMON NORMALS: patient oriented x3 and alert GENERAL APPEARANCE: c ooperative NUTRITIONAL APPEARANCE: obese ORIENTATION/CONSCIOUSNESS: Yes awake HENMT: COMMON NORMALS: oropharynx normal OTHER: BiPAP mask Neck/C-Spine: COMMON NORMALS: no JVD Resp: COMMON NORMALS: normal respiratory effort AUSCULTATION: diminished lung sounds Cardio: COMMON NORMALS: no JVD, regular rhythm, S1 normal heart sound present, S2 normal heart sound present and No murmurs present (Cardio) RHYTHM: regular rhythm HEART SOUNDS: S1 normal heart sound present and S2 normal heart sound present GI: COMMON NORMALS: Normal to inspection, nondistended, normoactive bowel sounds present, Soft to palpation and non-tender PALPATION: Yes Soft to palpation Extremity: COMMON NORMALS: no joint enlargement GENERAL: Yes edema (Trace) Neuro: COMMON NORMALS: patient oriented x3 and moves all extremities S ENSORIUM/ORIENTATION: Yes alert Skin: COMMON NORMALS: no rashes or lesions noted GENERAL SKIN EXAM: no rashes or lesions noted Data 11/02/24 04:34 11/02/24 04:34 Micro: Microbiology 11/01/24 14:49 Blood Culture - Preliminary Blood SPECIMEN COLLECTED 11/01/24 14:49 Blood Culture - Preliminary Blood SPECIMEN COLLECTED A&P Assessment and plan (1) Acute respiratory failure with hypoxia and hypercapnia: Resolving respiratory failure. Improving severe COPD exacerbation, pneumonia. He has so far weaned off BiPAP to nasal cannula. Still with productive cough. Reviewed vitals, CBC, CMP, MRSA PCR. Blood culture. So far negative. Discussed with nursing, respiratory therapist, case specialist. Continue treatment of severe COPD exacerbation. Continue IV Solu-Medrol, breathing treatments, Zosyn. Monitor for risk of hyperglycemia, hypertension, gastritis, encephalopathy. Monitor for risk of cytopenia. Target saturation 88-92%. Sputum culture requested. Follow-up. Continue care on medical surgical floor. Additionally with orthopnea, reporting ankle swelling, although currently only trace edema, denies chest pain pressure. Complete troponin EKG series. Reviewed TTE. Noted normal EF, thickened mitral valve, thickened aortic valve. No pericardial effusion. Intracardiac masses. (2) Pneumonia: Continue Zosyn. Possible aspiration pneumonia. Versus community-acquired pneumonia. Prior MRSA PCR negative (3) COPD (chronic obstructive pulmonary disease): COPD with severe exacerbation with productive cough, copious phlegm, dyspnea, diminished air entry. Assess and treat respiratory failure as above. (4) Nausea and vomiting: Had 1 episode of vomiting this morning, so far no further emesis. Discussed with him to request nausea medication in case of nausea. Hold NSAID. Continue PPI. Trial of oral diet. (5) Smoking addiction: Discussed smoking cessation for 4 minutes. He has overall cut down to just about 1 cigarette only some days. Encouraged complete cessation. He declines nicotine replacement at current time, he will let us know in case he decides he needed. (6) Alcohol use: Monitor for any signs of withdrawal. Encourage cessation. (7) Hyperglycemia: Appears to have new diagnosis of diabetes. A1c reviewed, 6.7. He is noticed hyperglycemia recently. Changed diet to cardiac, consistent carbohydrate. Would benefit from an oral medication at discharge. Plan CKD Peripheral neuropathy Attestations 2 Medical Necessity Statement*: Continue admission for assessment management of severe exacerbation of COPD, pneumonia. and High MDM includes amount and/or complexity of data reviewed/ordered [ resulted lab(s)/test(s), ordered lab(s)/test(s) and other healthcare professional discussion] and described risk of complication, morbidity or mortality of management as documented Diagnoses Acute respiratory failure with hypoxia and hypercapnia J96.01; J96.02 Pneumonia J18.9 COPD (chronic obstructive pulmonary disease) J44.9 Nausea and vomiting R11.2 Smoking addiction F17.200 Alcohol use F10.90 Hyperglycemia R73.9
[2024-11-02 17:02] LABS: Glucose Point of Care 142 mg/dL (70-110)
--- NOTE | 2024-11-02 17:22 | PC.NURSE ---
Pt has been ambulating to toilet by himself with walker.
--- NOTE | 2024-11-02 21:15 | PC.NURSE ---
Transferred to [place]: Patient was transferred to med surg unit, receiving nurse and all patient belongings at bedside.
[2024-11-03] VITALS (12 sets, daily range): BP systolic 114–155; BP diastolic 67–88; PULSE 92–113; RESP 16–28; TEMP 36.6–36.9; O2SAT 88–94
[2024-11-03] MEDS: methylPREDNISolone sod succ 40 mg/mL INJ IVP ×3 (00:07→17:23)
[2024-11-03 03:57] LABS: Basophils % 0.1 %; Lymphocytes # 0.5 10^3/uL (0.8-4.8); Lymphocytes % 3.8 %; Mean Corpuscular HGB Conc 30.9 g/dL (30-55); Mean Corpuscular Hemoglobin 27.8 pg (27-33); Mean Platelet Volume 9.5 fL (7.4-10.4); Monocytes # 0.4 10^3/uL (0.2-0.9); Monocytes % 3.5 %; Neutrophils # 10.79 10^3/uL (1.8-7.7); Neutrophils % 92.2 %; Nucleated Red Blood Cells % 0 %; Platelet Count 254 10^3/cmm (157-399); Red Blood Count 6.11 10^6/uL (3.85-5.65); Red Cell Distribution Width 14.4 % (12.1-15.1); White Blood Count 11.71 10^3/uL (3.29-11.43)
[2024-11-03 04:19] LABS: Anion Gap 8.1 (5-19); Blood Urea Nitrogen 21 mg/dL (8-23); Calcium 9.8 mg/dL (8.5-10.5); Carbon Dioxide 40 mmol/L (22-29); Chloride 94 mmol/L (98-107); Creatinine Clr Calc Pharmacy 98.9586; Glomerular Filtration Rate 95.6 mL/min (90-130); Glucose 162 mg/dL (65-115); Osmolality Calculated 291 mOsm/kg (285-295); Potassium 5.1 mmol/L (3.5-5.1); Sodium 137 mmol/L (136-145)
[2024-11-03] MEDS: pantoprazole 40 mg SDV IVP ×2 (06:01→17:23)
[2024-11-03] MEDS: piperacillin-tazobactam 3.375 GM in sodium chloride 0.9% (plus) 50 ML IV ×2 (06:02→14:26)
[2024-11-03] MEDS: ipratropium-albuterol 3 mL Neb INHALATION ×3 (09:41→21:29)
[2024-11-03 17:05] LABS: Glucose Point of Care 232 mg/dL (70-110)
[2024-11-03] MEDS: insulin lispro 100 unit/1 mL SUBCUT (17:23)
--- NOTE | 2024-11-03 20:41 | P.PN_ITS ---
Subjective 2 Subjective: He is feeling slightly better. Cough is improving. Breathing is improving. Vitals/I&O/Wt Last Vital Signs Temp 98.5 F 11/03/24 20:00 Pulse 105 H 11/03/24 20:00 Resp 18 11/03/24 20:00 BP 155/67 11/03/24 20:00 Pulse Ox 91 11/03/24 20:00 O2 Del Method Nasal Cannula 11/03/24 20:00 O2 Flow Rate 3 11/03/24 19:47 FiO2 45 11/02/24 05:38 11/03/24 11/03/24 11/03/24 06:59 14:59 22:59 Intake Total 50 / 870 530 / 530 290 / 820 Output Total 700 / 1100 Balance -650 / -230 530 / 530 290 / 820 Weight last 48 hrs Weight 98.974 kg Weight 97.522 kg Weight 97.522 kg Physical Exam 2 Const: COMMON NORMALS: patient oriented x3 and alert GENERAL APPEARANCE: c ooperative NUTRITIONAL APPEARANCE: obese ORIENTATION/CONSCIOUSNESS: Yes awake HENMT: COMMON NORMALS: oropharynx normal OTHER: NC Neck/C-Spine: COMMON NORMALS: no JVD Resp: COMMON NORMALS: normal respiratory effort AUSCULTATION: diminished lung sounds OTHER: Improving air entry. Cardio: COMMON NORMALS: no JVD, regular rhythm, S1 normal heart sound present, S2 normal heart sound present and No murmurs present (Cardio) RHYTHM: regular rhythm HEART SOUNDS: S1 normal heart sound present and S2 normal heart sound present GI: COMMON NORMALS: Normal to inspection, nondistended, normoactive bowel sounds present, Soft to palpation and non-tender PALPATION: Yes Soft to palpation Extremity: COMMON NORMALS: no joint enlargement GENERAL: Yes edema (Trace) Neuro: COMMON NORMALS: patient oriented x3 and moves all extremities S ENSORIUM/ORIENTATION: Yes alert Skin: COMMON NORMALS: no rashes or lesions noted GENERAL SKIN EXAM: no rashes or lesions noted Data 11/03/24 03:40 11/03/24 03:40 Micro: Microbiology 11/01/24 14:49 Blood Culture - Preliminary Blood NEGATIVE TO DATE 11/01/24 14:49 Blood Culture - Preliminary Blood NEGATIVE TO DATE A&P Assessment and plan (1) Acute respiratory failure with hypoxia and hypercapnia: Resolved respiratory failure. Improving severe COPD exacerbation and pneumonia. Improving cough. Still requiring 2 L of oxygen. Not normally on oxygen. Continue treatment of severe COPD exacerbation, continue Solu-Medrol, monitor for risk of hyperglycemia, hypertension, gastritis, encephalopathy. Reviewed blood glucose, noted with elevation but mostly around 140s. Continue sliding scale insulin. Consistent carbohydrate diet. Reassess. Continue empiric antibiotic with Zosyn. Continue breathing treatments. Oxygen support, wean down as tolerating. Reviewed MRSA PCR negative. Reviewed vitals, CBC, BMP. Reviewed blood culture, so far negative. Target saturation 88-92%. Sputum culture requested. Follow-up. Continue care on medical surgical floor. Additionally with orthopnea, reporting ankle swelling, although currently only trace edema, denies chest pain pressure. Complete troponin EKG series. Reviewed TTE. Noted normal EF, thickened mitral valve, thickened aortic valve. No pericardial effusion. Intracardiac masses. (2) Pneumonia: Continue Zosyn. Possible aspiration pneumonia. Versus community-acquired pneumonia. Reviewed MRSA PCR, negative. Reviewed blood culture, so far negative. (3) COPD (chronic obstructive pulmonary disease): COPD with severe exacerbation with productive cough, copious phlegm, dyspnea, diminished air entry. Assess and treat respiratory failure as above. (4) Nausea and vomiting: So far without further nausea or vomiting. Had 1 episode of vomiting this morning, so far no further emesis. Discussed with him to request nausea medication in case of nausea. Hold NSAID. Continue PPI. Trial of oral diet. (5) Smoking addiction: Discussed smoking cessation for 4 minutes. He has overall cut down to just about 1 cigarette only some days. Encouraged complete cessation. He declines nicotine replacement at current time, he will let us know in case he decides he needed. (6) Alcohol use: Monitor for any signs of withdrawal. Encourage cessation. (7) Hyperglycemia: Appears to have new diagnosis of diabetes. A1c reviewed, 6.7. He is noticed hyperglycemia recently. Changed diet to cardiac, consistent carbohydrate. Would benefit from an oral medication at discharge. Plan CKD Peripheral neuropathy Attestations 2 Medical Necessity Statement*: Continue admission for assessment management of severe exacerbation of COPD, pneumonia with persistent hypoxia, not normally on oxygen. and High MDM includes number and complexity of problems actively addressed during encounter and described risk of complication, morbidity or mortality of management as documented Diagnoses Acute respiratory failure with hypoxia and hypercapnia J96.01; J96.02 Pneumonia J18.9 COPD (chronic obstructive pulmonary disease) J44.9 Nausea and vomiting R11.2 Smoking addiction F17.200 Alcohol use F10.90 Hyperglycemia R73.9
[2024-11-04] VITALS (19 sets, daily range): BP systolic 115–156; BP diastolic 74–79; PULSE 98–117; RESP 16–20; TEMP 36.6–37; O2SAT 84–98
[2024-11-04] MEDS: piperacillin-tazobactam 3.375 GM in sodium chloride 0.9% (plus) 50 ML IV ×4 (00:03→23:24)
[2024-11-04] MEDS: methylPREDNISolone sod succ 40 mg/mL INJ IVP ×3 (00:03→17:41)
[2024-11-04] MEDS: ipratropium-albuterol 3 mL Neb INHALATION ×4 (02:21→20:45)
[2024-11-04 04:45] LABS: Basophils % 0.1 %; Hematocrit 55.9 % (37-53); Lymphocytes # 0.6 10^3/uL (0.8-4.8); Lymphocytes % 3.7 %; Mean Corpuscular HGB Conc 31.1 g/dL (30-55); Mean Corpuscular Hemoglobin 27.4 pg (27-33); Mean Corpuscular Volume 88.2 fl (82-101); Mean Platelet Volume 9.3 fL (7.4-10.4); Monocytes # 0.5 10^3/uL (0.2-0.9); Monocytes % 3.6 %; Neutrophils # 13.77 10^3/uL (1.8-7.7); Nucleated Red Blood Cells % 0 %; Platelet Count 275 10^3/cmm (157-399); Red Blood Count 6.34 10^6/uL (3.85-5.65); Red Cell Distribution Width 14.7 % (12.1-15.1); White Blood Count 14.97 10^3/uL (3.29-11.43)
[2024-11-04 05:02] LABS: Anion Gap 8.7 (5-19); Blood Urea Nitrogen 34 mg/dL (8-23); Calcium 9.6 mg/dL (8.5-10.5); Carbon Dioxide 38 mmol/L (22-29); Chloride 95 mmol/L (98-107); Creatinine Clr Calc Pharmacy 88.5906; Glomerular Filtration Rate 83.4 mL/min (90-130); Glucose 145 mg/dL (65-115); Osmolality Calculated 294 mOsm/kg (285-295); Potassium 4.7 mmol/L (3.5-5.1); Sodium 137 mmol/L (136-145)
[2024-11-04] MEDS: pantoprazole 40 mg SDV IVP ×2 (06:02→17:42)
[2024-11-04 06:37] LABS: Glucose Point of Care 157 mg/dL (70-110)
[2024-11-04] MEDS: insulin lispro 100 unit/1 mL SUBCUT ×2 (09:14→17:42)
[2024-11-04] MEDS: ondansetron 2 mg/ML SDV 2 mL 4 MG IVP (09:15)
--- NOTE | 2024-11-04 11:00 | ECG_ITS ---
[facility] Test Date: 2024-11-04 Pat Name: 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 Department: Room: 277 Gender: Male Manager Creative Services: : 1955 Requested By: Reggie Juan Order Number: [id number] Reading MD: Fredrick Murphy M.D. Measurements Intervals [place] Rate: 103 P: 50 DE: 134 QRS: 49 QRSD: 94 T: 28 QT: 334 QTc: 438 Interpretive Statements SINUS TACHYCARDIA LOW QRS VOLTAGE IN PRECORDIAL LEADS [QRS DEFLECTION < 1.0 mV IN CHEST LEADS] POSSIBLE RIGHT VENTRICULAR CONDUCTION DELAY [RSR (QR) IN V1/V2] ABNORMAL RHYTHM ECG Compared to ECG 11/01/2024 14:55:11 Low QRS voltage now present Sinus rhythm no longer present T-wave abnormality no longer present Electronically Signed On 11-04-2024 13:33:37 [employer] by Fredrick Murphy M.D. [id number]
[2024-11-04 11:38] LABS: Glucose Point of Care 139 mg/dL (70-110)
--- NOTE | 2024-11-04 15:39 | PC.NURSE ---
Dr. Juan notified for lidocain patch 5%. Orders to Apply 5% lidocaine patch for Q24H Once.
[2024-11-04 15:42] LABS: Adenovirus Not Detected (NOT DETECT); Chlamydia Pneumoniae Not Detected (NOT DETECT); Coronavirus 229E,HKU1,NL63,OC4 Not Detected (NOT DETECT); Human Metapneumovirus Not Detected (NOT DETECT); Human Rhinovirus/Enterovirus Not Detected (NOT DETECT); Influenza A Not Detected (NOT DETECT); Influenza A H1 Not Detected (NOT DETECT); Influenza A H1-2009 Not Detected (NOT DETECT); Influenza A H3 Not Detected (NOT DETECT); Influenza B Not Detected (NOT DETECT); Mycoplasma Pneumoniae Not Detected (NOT DETECT); Parainfluenza Virus Type 1 Not Detected (NOT DETECT); Parainfluenza Virus Type 2 Not Detected (NOT DETECT); Parainfluenza Virus Type 3 Not Detected (NOT DETECT); Parainfluenza Virus Type 4 Not Detected (NOT DETECT); Respiratory Syncytial Virus A Not Detected (NOT DETECT); Respiratory Syncytial Virus B Not Detected (NOT DETECT); SARS-COV-2 Not Detected (NOT DETECT)
[2024-11-04] MEDS: lidocaine 5% Patch 1 PATCH TOPICAL ×2 (16:27→23:26)
[2024-11-04 16:58] LABS: Glucose Point of Care 180 mg/dL (70-110)
[2024-11-04 20:45] LABS: Glucose Point of Care 175 mg/dL (70-110)
--- NOTE | 2024-11-04 21:19 | P.PN_ITS ---
Subjective 2 Subjective: He is feeling product marketing analyst the face for some reason this morning. Additionally having sinus tachycardia. Vitals/I&O/Wt Last Vital Signs Temp 98.6 F 11/04/24 20:00 Pulse 106 H 11/04/24 20:50 Resp 18 11/04/24 20:45 BP 121/77 11/04/24 20:00 Pulse Ox 92 11/04/24 20:45 O2 Del Method Nasal Cannula 11/04/24 20:45 O2 Flow Rate 3 11/04/24 20:45 FiO2 45 11/02/24 05:38 11/04/24 11/04/24 11/04/24 06:59 14:59 22:59 Intake Total 50 / 870 570 / 570 285 / 855 Output Total 450 / 650 50 / 50 550 / 600 Balance -400 / 220 520 / 520 -265 / 255 Weight last 48 hrs Weight 92.306 kg Weight 98.974 kg Physical Exam 2 Narrative: Accompanied by his . Const: COMMON NORMALS: patient oriented x3 and alert GENERAL APPEARANCE: c ooperative NUTRITIONAL APPEARANCE: obese ORIENTATION/CONSCIOUSNESS: Yes awake HENMT: COMMON NORMALS: oropharynx normal OTHER: NC Neck/C-Spine: COMMON NORMALS: no JVD Resp: COMMON NORMALS: normal respiratory effort AUSCULTATION: diminished lung sounds OTHER: Improving air entry. Cardio: COMMON NORMALS: no JVD, regular rhythm, S1 normal heart sound present, S2 normal heart sound present and No murmurs present (Cardio) RHYTHM: regular rhythm HEART SOUNDS: S1 normal heart sound present and S2 normal heart sound present GI: COMMON NORMALS: Normal to inspection, nondistended, normoactive bowel sounds present, Soft to palpation and non-tender PALPATION: Yes Soft to palpation Extremity: COMMON NORMALS: no joint enlargement GENERAL: No edema Neuro: COMMON NORMALS: patient oriented x3 and moves all extremities S ENSORIUM/ORIENTATION: Yes alert Skin: COMMON NORMALS: no rashes or lesions noted GENERAL SKIN EXAM: no rashes or lesions noted Data 11/04/24 04:25 11/04/24 04:25 A&P Assessment and plan (1) Acute respiratory failure with hypoxia and hypercapnia: Respiratory failure with improvement, but he is still requiring oxygen, but seems to be comfortable on 3 L, without further worsening, overall dyspnea with improvement, cough with improvement. However, still remaining sinus tachycardia, worsened leukocytosis up to 14.97, feeling warm and face, question of possibly trying to spike a fever. Reviewed blood culture, so far remaining negative. Will repeat blood counts. Monitor vitals. Continue antibiotic coverage with Zosyn for treatment of pneumonia and COPD exacerbation, repeat chest x-ray. Discussed with respiratory, nursing. D-dimer reviewed and not elevated, although risk of PE. Continue treatment of COPD exacerbation, will cut down Solu-Medrol to 20 mg. Monitor for risk of hyperglycemia, hypertension, gastritis, encephalopathy. Reviewed blood glucose, noted with elevation but mostly around 140s. Continue sliding scale insulin. Consistent carbohydrate diet. Reassess. Continue empiric antibiotic with Zosyn. Continue breathing treatments. Oxygen support, wean down as tolerating. Sputum culture so far uncollected. Target saturation 88-92%. Continue care on medical surgical floor. Additionally with orthopnea, reporting ankle swelling, although currently only trace edema, denies chest pain pressure. Reviewed TTE. Noted normal EF, thickened mitral valve, thickened aortic valve. No pericardial effusion. Intracardiac masses. (2) Pneumonia: Continue Zosyn. Possible aspiration pneumonia. Versus community-acquired pneumonia. Reviewed MRSA PCR, negative. Reviewed blood culture, so far negative. (3) COPD (chronic obstructive pulmonary disease): COPD with severe exacerbation with productive cough, copious phlegm, dyspnea, diminished air entry. Assess and treat respiratory failure as above. (4) Nausea and vomiting: So far without further nausea or vomiting. Had 1 episode of vomiting this morning, so far no further emesis. Discussed with him to request nausea medication in case of nausea. Hold NSAID. Continue PPI. Trial of oral diet. (5) Smoking addiction: Discussed smoking cessation for 4 minutes. He has overall cut down to just about 1 cigarette only some days. Encouraged complete cessation. He declines nicotine replacement at current time, he will let us know in case he decides he needed. (6) Alcohol use: With sinus tachycardia, possible alcohol drawl? Does not seem to have any other symptoms. Monitor for any signs of withdrawal. Encourage cessation. (7) Hyperglycemia: Appears to have new diagnosis of diabetes. A1c reviewed, 6.7. He is noticed hyperglycemia recently. Changed diet to cardiac, consistent carbohydrate. Would benefit from an oral medication at discharge. Plan CKD Peripheral neuropathy Attestations 2 Medical Necessity Statement*: Continue admission for assessment management of severe exacerbation of COPD, pneumonia with persistent hypoxia, not normally on oxygen. and High MDM includes amount and/or complexity of data reviewed/ordered [ resulted lab(s)/test(s), ordered lab(s)/test(s) and other healthcare professional discussion] and described risk of complication, morbidity or mortality of management as documented Diagnoses Acute respiratory failure with hypoxia and hypercapnia J96.01; J96.02 Pneumonia J18.9 COPD (chronic obstructive pulmonary disease) J44.9 Nausea and vomiting R11.2 Smoking addiction F17.200 Alcohol use F10.90 Hyperglycemia R73.9
[2024-11-05] VITALS (12 sets, daily range): BP systolic 126–169; BP diastolic 74–97; PULSE 94–114; RESP 16–20; TEMP 36.6–37.1; O2SAT 89–94
[2024-11-05] MEDS: methylPREDNISolone sod succ 40 mg/mL INJ 20 MG IVP ×2 (01:10→09:27)
[2024-11-05] MEDS: ipratropium-albuterol 3 mL Neb INHALATION ×4 (03:00→20:44)
[2024-11-05 04:27] LABS: Basophils % 0.2 %; Hematocrit 56.7 % (37-53); Lymphocytes # 0.7 10^3/uL (0.8-4.8); Lymphocytes % 6.4 %; Mean Corpuscular HGB Conc 30.3 g/dL (30-55); Mean Corpuscular Hemoglobin 27.4 pg (27-33); Mean Corpuscular Volume 90.3 fl (82-101); Mean Platelet Volume 9.6 fL (7.4-10.4); Monocytes # 0.7 10^3/uL (0.2-0.9); Neutrophils # 9.98 10^3/uL (1.8-7.7); Neutrophils % 86.9 %; Nucleated Red Blood Cells % 0 %; Platelet Count 314 10^3/cmm (157-399); Red Blood Count 6.28 10^6/uL (3.85-5.65); Red Cell Distribution Width 14.8 % (12.1-15.1); White Blood Count 11.49 10^3/uL (3.29-11.43)
[2024-11-05 04:47] LABS: Anion Gap 10.9 (5-19); Blood Urea Nitrogen 34 mg/dL (8-23); Calcium 9.3 mg/dL (8.5-10.5); Carbon Dioxide 34 mmol/L (22-29); Chloride 95 mmol/L (98-107); Creatinine Clr Calc Pharmacy 96.4231; Glomerular Filtration Rate 95.6 mL/min (90-130); Glucose 160 mg/dL (65-115); Osmolality Calculated 291 mOsm/kg (285-295); Potassium 4.9 mmol/L (3.5-5.1); Sodium 135 mmol/L (136-145)
[2024-11-05] MEDS: pantoprazole 40 mg SDV IVP ×2 (05:55→18:14)
[2024-11-05] MEDS: piperacillin-tazobactam 3.375 GM in sodium chloride 0.9% (plus) 50 ML IV ×2 (06:00→18:19)
[2024-11-05 06:28] LABS: Glucose Point of Care 172 mg/dL (70-110)
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
[2024-11-05] MEDS: insulin lispro 100 unit/1 mL SUBCUT ×2 (09:27→18:17)
[2024-11-05] MEDS: lidocaine 5% Patch 1 PATCH TOPICAL (09:27)
--- NOTE | 2024-11-05 10:49 | PC.SOCIAL ---
IMM updated Updated pt on IMM. No questions voiced. Provided pt a copy. Initialed, dated, & timed copy in chart.
[2024-11-05 11:58] LABS: Glucose Point of Care 123 mg/dL (70-110)
--- NOTE | 2024-11-05 13:38 | USCV_ITS ---
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 Age: 68 Gender: M : 1955 Exam Date: 11/05/2024 15:53 Ordering Phys: Juan F Molina MD Technologist: SWETA Exam Location: [facility] – [place] Indication: CHRONIC HEART FAILURE BP: 135 / 75 HR: 95 Rhythm: Sinus Technical Quality: Adequate MEASUREMENTS (Male / Female) Normal Values 2D ECHO LV Diastolic Diameter PLAX 3.1 cm 4.2 - 5.9 / 3.9 - 5.3 cm IVS Diastolic Thickness 1.4 cm 0.6 - 1.0 / 0.6 - 0.9 cm IVS Systolic Thickness 2.1 cm LVPW Diastolic Thickness 2.0 cm 0.6 - 1.0 / 0.6 - 0.9 cm LVPW Systolic Thickness 2.4 cm LVOT Diameter 2.0 cm LV Ejection Fraction 2D Teich 63.6 % LV Ejection Fraction MOD 4C 52.0 % LV Ejection Fraction MOD 2C 56.2 % LV Ejection Fraction 2C AL 57.2 % LA Diameter 3.1 cm RA Systolic Volume 4C AL 12.4 ml RA Systolic Volume 4C MOD 12.3 ml LA Sys Volume AL 25.9 cm cubed LA Sys Volume Index AL 12.2 cm cubed/m squared Aorta at Sinotubular Diameter 2.2 cm M-MODE LA Ao Ratio MM 0.9 AV Cusp Separation MM 1.2 cm DOPPLER AV Peak Velocity 156.0 cm/s LVOT Peak Velocity 100.0 cm/s AV Area Cont Eq vti 2.1 cm squared AV Area Cont Eq pk 2.0 cm squared MV Peak Velocity 117.0 cm/s MV Area PHT 4.8 cm squared Mitral E to A Ratio 0.6 TR Peak Velocity 120.0 cm/s TR Peak Gradient 5.8 mmHg TR Mean Velocity 91.0 cm/s TR Mean Gradient 3.7 mmHg TR Velocity Time Integral 27.7 cm TV Peak E Velocity 60.0 cm/s PV Peak Velocity 101.0 cm/s RV Ejection Time 0.3 s FINDINGS Left Ventricle Normal left ventricular size, systolic function and wall thickness, with no regional wall motion abnormalities. Left ventricular ejection fraction is estimated at 65 %. Grade I/IV diastolic dysfunction (abnormal relaxation filling pattern), normal to mildly elevated filling pressures. Right Ventricle The right ventricle is normal in size and function. Right Atrium The right atrium is normal in size. Left Atrium The left atrium is normal in size. Mitral Valve Structurally normal mitral valve without significant stenosis or prolapse. There is no mitral regurgitation. Aortic Valve Structurally normal aortic valve without significant sclerosis or stenosis. There is no aortic regurgitation. Tricuspid Valve Structurally normal tricuspid valve without significant stenosis or regurgitation. Pulmonic Valve Structurally normal pulmonic valve without significant stenosis. There is no pulmonic regurgitation. Pericardium Normal pericardium without effusion. Aorta Normal ascending aorta dimension. IVC The inferior vena cava appears normal. CONCLUSIONS Normal left ventricular size, systolic function and wall thickness, with no regional wall motion abnormalities. Left ventricular ejection fraction is estimated at 65 %. Grade I/IV diastolic dysfunction (abnormal relaxation filling pattern), normal to mildly elevated filling pressures. No significant chamber abnormalities. No significant valve abnormalities. There is no pericardial effusion. Right atrial pressure is around 5 mm of mercury. Haydee Kim MD (Electronically Signed) Final Date: 05 November 2024 20:53 S
--- NOTE | 2024-11-05 13:43 | CT_ITS ---
WS: [id number] CT chest wo con [id number] HISTORY: Resp faliure TECHNIQUE: Axial imaging performed through the thorax. Coronal and sagittal reformats are submitted. All CT scans at [facility] use at least one of these dose optimization techniques: automated exposure control; mA and/or kV adjustment per patient size (includes targeted exams where dose is mat ched to clinical indication); or iterative reconstruction. CONTRAST: Omnipaque 350; 100 mL IV. DLP: 492.30 mGy.cm COMPARISON: 06/16/2022 Lungs and central airway: Lung volumes are decreased. Dependent changes with atelectasis and scarring at the lung bases. Coarse calcification along the RIGHT diaphragmatic surface. There is mild pleural thickening on the RIGHT. Pleura: No pleural effusion. Heart and pericardium: Normal size heart with no pericardial effusion. Mediastinum and jamey: No mediastinum or hilar adenopathy. Vessels: Mild atherosclerosis aorta. Normal size pulmonary artery. Chest wall and lower neck: No soft tissue masses. Upper abdomen: No adrenal mass. Visualized upper abdomen on the localizer demonstrates marked air and fecal retention within the transverse colon. Osseous structures: No destructive process. CT/CT chest wo con [id number] IMPRESSION: 1. No pneumonia. Decreased lung volumes from poor inspiration. 2. Normal size heart. 3. Increased air and fecal material of the transverse colon. Consider ileus pa ttern.
[2024-11-05 14:22] LABS: Procalcitonin 0.07 ng/mL (0-0.5); Thyroid Stimulating Hormone 1.12 uIU/mL (0.27-4.20); Vitamin B12 325 pg/mL (232-1245)
[2024-11-05 14:40] LABS: Iron 142 ug/dL (59-158); Total Iron Binding Capacity 346 mcg/dl; Unsaturated Iron Binding 204 ug/dL (112-347)
--- NOTE | 2024-11-05 15:48 | P.PN_ITS ---
Subjective 2 Subjective: Hospital course, labs appreciated. Today morning examination patient is on 4 L of oxygen supplementation saturating in low 90s. Heart rate running more than 100. Denies any nausea, vomiting, headache. States he is feeling better than when he came in. Vitals/I&O/Wt Last Vital Signs Temp 98.5 F 11/05/24 12:00 Pulse 105 H 11/05/24 14:00 Resp 18 11/05/24 14:00 BP 135/76 11/05/24 12:00 Pulse Ox 94 11/05/24 14:00 O2 Del Method Nasal Cannula 11/05/24 14:00 O2 Flow Rate 4 11/05/24 14:00 FiO2 45 11/02/24 05:38 11/05/24 11/05/24 11/05/24 06:59 14:59 22:59 Intake Total 410 / 1745 560 / 560 Output Total 400 / 1300 625 / 625 Balance 10 / 445 -65 / -65 Weight last 48 hrs Weight 92.442 kg Weight 92.306 kg Physical Exam 2 Narrative: Accompanied by his . Const: COMMON NORMALS: patient oriented x3 and alert GENERAL APPEARANCE: c ooperative NUTRITIONAL APPEARANCE: obese ORIENTATION/CONSCIOUSNESS: Yes awake HENMT: COMMON NORMALS: oropharynx normal OTHER: NC Neck/C-Spine: COMMON NORMALS: no JVD Resp: COMMON NORMALS: normal respiratory effort AUSCULTATION: diminished lung sounds OTHER: Improving air entry. Cardio: COMMON NORMALS: no JVD, regular rhythm, S1 normal heart sound present, S2 normal heart sound present and No murmurs present (Cardio) RHYTHM: regular rhythm HEART SOUNDS: S1 normal heart sound present and S2 normal heart sound present GI: COMMON NORMALS: Normal to inspection, nondistended, normoactive bowel sounds present, Soft to palpation and non-tender PALPATION: Yes Soft to palpation Extremity: COMMON NORMALS: no joint enlargement GENERAL: No edema Neuro: COMMON NORMALS: patient oriented x3 and moves all extremities S ENSORIUM/ORIENTATION: Yes alert Skin: COMMON NORMALS: no rashes or lesions noted GENERAL SKIN EXAM: no rashes or lesions noted Data 11/05/24 03:40 11/05/24 03:40 A&P Assessment and plan (1) Acute respiratory failure with hypoxia and hypercapnia: Most likely in setting of COPD exacerbation with mild concerns for diastolic heart failure. Upto 4 L of oxygen supplementation. Wean keeping saturation over 88%. Patient is requiring high oxygen supplementation. Will check CT chest without contrast. Pneumonia less likely for now. COVID/flu negative on admission. Sputum culture uncollected so far. Increase Solu-Medrol 40 mg every 8 hourly. Will plan to wean further within next 24 hours. Pulmicort twice daily, DuoNeb every 6 hour. Incentive spirometry. Check D-dimer. Negative on admission. Check echocardiogram. IV Lasix 40 mg one-time. Out of bed to chair. (2) Pneumonia: Low concerns for pneumonia for now. MRSA swab negative. Continue with Zosyn to finish a 5-day course. Last dose on 11/06. (3) COPD (chronic obstructive pulmonary disease): As above. (4) Nausea and vomiting: Resolved. Zofran as read needed. Tolerate oral diet. (5) Smoking addiction: Discussed in detail regarding smoking cessation. He has overall cut down to just about 1 cigarette only some days. Encouraged complete cessation. He declines nicotine replacement at current time, he will let us know in case he decides he needed. (6) Alcohol use: With sinus tachycardia, possible alcohol drawl? Does not seem to have any other symptoms. Monitor for any signs of withdrawal. Encourage cessation. CIWA protocol. (7) Hyperglycemia: New diagnosis of diabetes. A1c 6.7. Will plan to discharge on oral hypoglycemics. For now continue with sliding scale low-dose protocol. Plan Full code Carb consistent diet Protonix for PUD prophylaxis Start on Lovenox for DVT prophylaxis. Attestations 2 Medical Necessity Statement*: Requires further hospitalization for management of hypoxic and hypercapnic respiratory failure in setting of COPD exacerbation, possible diastolic heart failure Diagnoses Acute respiratory failure with hypoxia and hypercapnia J96.01; J96.02 Pneumonia J18.9 COPD (chronic obstructive pulmonary disease) J44.9 Nausea and vomiting R11.2 Smoking addiction F17.200 Alcohol use F10.90 Hyperglycemia R73.9
[2024-11-05 17:02] LABS: D Dimer 0.62 ug/mLFEU (0-0.59)
[2024-11-05 17:03] LABS: Glucose Point of Care 181 mg/dL (70-110)
[2024-11-05] MEDS: enoxaparin 40 mg/0.4 mL Syringe SUBCUT (18:12)
[2024-11-05] MEDS: FUROsemide 10 mg/mL SDV 4mL 40 MG IVP (18:14)
[2024-11-05] MEDS: methylPREDNISolone sod succ 40 mg/mL INJ IVP (18:19)
[2024-11-05] MEDS: budesonide 0.5 mg/2 mL Neb INHALATION (20:44)
[2024-11-05 20:58] LABS: Glucose Point of Care 135 mg/dL (70-110)
[2024-11-06] VITALS (11 sets, daily range): BP systolic 112–126; BP diastolic 75–90; PULSE 103–115; RESP 18–22; TEMP 36.3–37.3; O2SAT 89–94
[2024-11-06] MEDS: piperacillin-tazobactam 3.375 GM in sodium chloride 0.9% (plus) 50 ML IV ×2 (01:48→21:36)
[2024-11-06] MEDS: methylPREDNISolone sod succ 40 mg/mL INJ IVP ×2 (01:48→17:54)
[2024-11-06] MEDS: pantoprazole 40 mg SDV IVP ×2 (05:07→16:16)
[2024-11-06 06:12] LABS: Basophils % 0.1 %; Lymphocytes # 0.6 10^3/uL (0.8-4.8); Lymphocytes % 5.2 %; Mean Corpuscular HGB Conc 31.2 g/dL (30-55); Mean Corpuscular Hemoglobin 27.8 pg (27-33); Mean Corpuscular Volume 89.3 fl (82-101); Mean Platelet Volume 9.5 fL (7.4-10.4); Monocytes # 0.7 10^3/uL (0.2-0.9); Monocytes % 5.6 %; Neutrophils # 10.42 10^3/uL (1.8-7.7); Neutrophils % 88.7 %; Nucleated Red Blood Cells % 0 %; Platelet Count 339 10^3/cmm (157-399); Red Blood Count 6.61 10^6/uL (3.85-5.65); Red Cell Distribution Width 14.9 % (12.1-15.1); White Blood Count 11.75 10^3/uL (3.29-11.43)
[2024-11-06 06:31] LABS: Glucose Point of Care 164 mg/dL (70-110)
[2024-11-06 06:39] LABS: Alanine Aminotransferase 52 U/L (0-41); Albumin Level 3.8 g/dL (3.5-5.2); Alkaline Phosphatase 96 U/L (40-130); Anion Gap 12.7 (5-19); Aspartate Amino Transferase 26 U/L (0-40); Blood Urea Nitrogen 39 mg/dL (8-23); Calcium 9.3 mg/dL (8.5-10.5); Carbon Dioxide 39 mmol/L (22-29); Chloride 92 mmol/L (98-107); Creatinine Clr Calc Pharmacy 77.1913; Globulin 3.5 g/dL (1.3-4.6); Glomerular Filtration Rate 73.9 mL/min (90-130); Glucose 159 mg/dL (65-115); Magnesium 2.2 mg/dL (1.7-2.3); Osmolality Calculated 301 mOsm/kg (285-295); Potassium 4.7 mmol/L (3.5-5.1); Sodium 139 mmol/L (136-145); Total Bilirubin 0.8 mg/dL (0.15-1.2); Total Protein 7.3 g/dL (6.6-8.7)
[2024-11-06 06:43] LABS: Chol HDL Ratio 5.67 mg/dL (1.0-5.00); Cholesterol 238 mg/dL (0-200); HDL Cholesterol 42 mg/dL (60-100); LDL Cholesterol Calculated 170 mg/dL (50-129); Triglycerides 130 mg/dL (0-150); VLDL Cholestrol Calculation 26 mg/dL (0-30)
[2024-11-06 06:52] LABS: Folate Level 13.1 ng/mL (4.5-32.2)
[2024-11-06] MEDS: lidocaine 5% Patch 1 PATCH TOPICAL (08:16)
[2024-11-06] MEDS: insulin lispro 100 unit/1 mL SUBCUT ×3 (08:16→17:55)
[2024-11-06] MEDS: piperacillin-tazobactam 3.375 GM in sodium chloride 0.9% (plus) 50 ML 5 GM IV (08:17)
[2024-11-06] MEDS: thiamine 100 mg Tablet PO (08:17)
[2024-11-06] MEDS: multivitamin therapeutic Tablet 1 TAB PO (08:17)
[2024-11-06] MEDS: folic acid 1 mg Tablet PO (08:17)
[2024-11-06] MEDS: budesonide 0.5 mg/2 mL Neb INHALATION ×2 (08:37→19:54)
[2024-11-06] MEDS: ipratropium-albuterol 3 mL Neb INHALATION (08:37)
[2024-11-06 11:43] LABS: Glucose Point of Care 142 mg/dL (70-110)
[2024-11-06] MEDS: methylPREDNISolone sod succ 125 mg/2 mL INJ 40 MG IVP (11:48)
--- NOTE | 2024-11-06 13:33 | P.PN_ITS ---
Subjective 2 Subjective: Acute events overnight. Seen sitting comfortably in bed. States feeling better. Down to 3 L of oxygen supplementation saturating more than 90%. Denies any nausea, vomiting, headache. Has remained tachycardic. Vitals/I&O/Wt Last Vital Signs Temp 98.4 F 11/06/24 12:00 Pulse 114 H 11/06/24 12:00 Resp 20 H 11/06/24 12:00 BP 125/80 11/06/24 12:00 Pulse Ox 92 11/06/24 12:00 O2 Del Method Nasal Cannula 11/06/24 12:00 O2 Flow Rate 3 11/06/24 08:00 FiO2 45 11/02/24 05:38 11/05/24 11/06/24 11/06/24 22:59 06:59 14:59 Intake Total 50 / 610 150 / 760 600 / 600 Output Total 475 / 1100 Balance -425 / -490 150 / -340 600 / 600 Weight last 48 hrs Weight 92.442 kg Weight 92.442 kg Physical Exam 2 Narrative: Accompanied by his . Const: COMMON NORMALS: patient oriented x3 and alert GENERAL APPEARANCE: c ooperative NUTRITIONAL APPEARANCE: obese ORIENTATION/CONSCIOUSNESS: Yes awake HENMT: COMMON NORMALS: oropharynx normal OTHER: NC Neck/C-Spine: COMMON NORMALS: no JVD Resp: COMMON NORMALS: normal respiratory effort AUSCULTATION: diminished lung sounds OTHER: Improving air entry. Cardio: COMMON NORMALS: no JVD, regular rhythm, S1 normal heart sound present, S2 normal heart sound present and No murmurs present (Cardio) RHYTHM: regular rhythm HEART SOUNDS: S1 normal heart sound present and S2 normal heart sound present GI: COMMON NORMALS: Normal to inspection, nondistended, normoactive bowel sounds present, Soft to palpation and non-tender PALPATION: Yes Soft to palpation Extremity: COMMON NORMALS: no joint enlargement GENERAL: No edema Neuro: COMMON NORMALS: patient oriented x3 and moves all extremities S ENSORIUM/ORIENTATION: Yes alert Skin: COMMON NORMALS: no rashes or lesions noted GENERAL SKIN EXAM: no rashes or lesions noted Data 11/06/24 05:44 11/06/24 05:44 A&P Assessment and plan (1) Acute respiratory failure with hypoxia and hypercapnia: Most likely in setting of COPD exacerbation with mild concerns for diastolic heart failure. Upto 4 L of oxygen supplementation. Wean keeping saturation over 88%. Patient is requiring high oxygen supplementation. Will check CT chest without contrast. Pneumonia less likely for now. COVID/flu negative on admission. Sputum culture uncollected so far. Increase Solu-Medrol 40 mg every 8 hourly. Will plan to wean further within next 24 hours. Pulmicort twice daily, DuoNeb every 6 hour. Incentive spirometry. Check D-dimer. Negative on admission. Check echocardiogram. IV Lasix 40 mg one-time. Out of bed to chair. (2) Pneumonia: Low concerns for pneumonia for now. MRSA swab negative. Continue with Zosyn to finish a 5-day course. Last dose on 11/06. (3) COPD (chronic obstructive pulmonary disease): As above. (4) Nausea and vomiting: Resolved. Zofran as read needed. Tolerate oral diet. (5) Smoking addiction: Discussed in detail regarding smoking cessation. He has overall cut down to just about 1 cigarette only some days. Encouraged complete cessation. He declines nicotine replacement at current time, he will let us know in case he decides he needed. (6) Alcohol use: With sinus tachycardia, possible alcohol drawl? Does not seem to have any other symptoms. Monitor for any signs of withdrawal. Encourage cessation. CIWA protocol. (7) Hyperglycemia: New diagnosis of diabetes. A1c 6.7. Will plan to discharge on oral hypoglycemics. For now continue with sliding scale low-dose protocol. Plan Full code Carb consistent diet Protonix for PUD prophylaxis Start on Lovenox for DVT prophylaxis Plan for the day: Continue with nebulization treatment. Given persistent tachycardia will switch from DuoNeb to ipratropium, Xopenex every 6 hours. Wean oxygen supplementation keeping saturation over 88%. Appreciate echocardiogram. No regional wall motion abnormality, normal EF. Hold off on any further Lasix. Appreciate CT chest results. Wean Solu-Medrol 40 mg every 12 hourly. Will plan to wean further in next 24 hours. Continues to have sinus tachycardia. Most likely in setting of COPD exacerbation and nebulization treatment. Switching nebulization treatment as above. Empirically start on Cardizem 30 mg 3 times daily. Discharge plan: Can plan to discharge in next 24 hours if oxygen supplementation remained stable. Home O2 evaluation to be done prior to discharge. Attestations 2 Medical Necessity Statement*: Requires further hospitalization for management of hypoxic respiratory failure in setting of COPD exacerbation patient with new oxygen requirement Diagnoses Acute respiratory failure with hypoxia and hypercapnia J96.01; J96.02 Pneumonia J18.9 COPD (chronic obstructive pulmonary disease) J44.9 Nausea and vomiting R11.2 Smoking addiction F17.200 Alcohol use F10.90 Hyperglycemia R73.9
[2024-11-06] MEDS: ipratropium 0.5 mg/2.5 mL Neb INHALATION ×2 (14:31→19:54)
[2024-11-06] MEDS: levalbuterol 0.63 mg/3 mL Neb INHALATION ×2 (14:31→19:54)
[2024-11-06] MEDS: enoxaparin 40 mg/0.4 mL Syringe SUBCUT (16:15)
[2024-11-06] MEDS: dilTIAZem 30 mg Tablet PO ×2 (16:16→21:36)
[2024-11-06 17:00] LABS: Glucose Point of Care 250 mg/dL (70-110)
[2024-11-06 20:49] LABS: Glucose Point of Care 240 mg/dL (70-110)
[2024-11-07] VITALS (7 sets, daily range): BP systolic 115–137; BP diastolic 76–84; PULSE 90–105; RESP 15–18; TEMP 36.7–37.1; O2SAT 85–95; BMI 29.9
[2024-11-07] MEDS: pantoprazole 40 mg SDV IVP (05:01)
[2024-11-07 06:31] LABS: Basophils % 0.2 %; Hematocrit 56.2 % (37-53); Lymphocytes # 0.8 10^3/uL (0.8-4.8); Lymphocytes % 6.4 %; Mean Corpuscular HGB Conc 31.1 g/dL (30-55); Mean Corpuscular Hemoglobin 27.5 pg (27-33); Mean Corpuscular Volume 88.4 fl (82-101); Mean Platelet Volume 9.4 fL (7.4-10.4); Monocytes # 1.1 10^3/uL (0.2-0.9); Monocytes % 8.7 %; Neutrophils # 11.01 10^3/uL (1.8-7.7); Neutrophils % 84.2 %; Nucleated Red Blood Cells % 0 %; Platelet Count 348 10^3/cmm (157-399); Red Blood Count 6.36 10^6/uL (3.85-5.65); Red Cell Distribution Width 14.7 % (12.1-15.1); White Blood Count 13.08 10^3/uL (3.29-11.43)
[2024-11-07 06:46] LABS: Magnesium 2.2 mg/dL (1.7-2.3)
[2024-11-07 06:49] LABS: Glucose Point of Care 163 mg/dL (70-110)
[2024-11-07] MEDS: thiamine 100 mg Tablet PO (08:45)
[2024-11-07] MEDS: dilTIAZem 30 mg Tablet PO (08:45)
[2024-11-07] MEDS: multivitamin therapeutic Tablet 1 TAB PO (08:45)
[2024-11-07] MEDS: methylPREDNISolone sod succ 40 mg/mL INJ IVP (08:45)
[2024-11-07] MEDS: folic acid 1 mg Tablet PO (08:45)
[2024-11-07] MEDS: lidocaine 5% Patch 1 PATCH TOPICAL (08:47)
[2024-11-07] MEDS: insulin lispro 100 unit/1 mL SUBCUT ×2 (08:53→12:58)
[2024-11-07] MEDS: budesonide 0.5 mg/2 mL Neb INHALATION (09:00)
[2024-11-07] MEDS: levalbuterol 0.63 mg/3 mL Neb INHALATION (09:00)
[2024-11-07] MEDS: ipratropium 0.5 mg/2.5 mL Neb INHALATION (09:00)
--- NOTE | 2024-11-07 10:31 | P.DS_ITS ---
Discharge Providers Date of Admission: 11/01/24 15:00 Date of Discharge: November 07, 2024 Attending Provider at Admission: Reggie Juan Attending Provider at Discharge: Juan F Molina MD Primary Care Provider: Wellington Savage MD Diagnoses at Discharge Discharge Diagnosis (1) Acute respiratory failure with hypoxia and hypercapnia: Status: Acute (2) Pneumonia: Status: Acute (3) COPD (chronic obstructive pulmonary disease): Status: Acute (4) Nausea and vomiting: Status: Acute (5) Smoking addiction: Status: Acute (6) Alcohol use: Status: Acute (7) Hyperglycemia: Status: Acute Reason for Visit Reason for Visit: resp distress Brief History: History as per HPI: Pleasant 68-year-old gentleman with history of COPD, CKD, peripheral neuropathy, presented with worsening shortness of breath, productive cough with copious sputum, hypoxia at home. He and his tried to get him to use her oxygen, but he was hypoxic even with that. On arrival of EMS saturation 55%. With start of nonrebreather oxygen saturation increased up to the 90s. He has not had any fever, chills, but has had nausea and vomiting over the preceding week or so. Denies diarrhea. Denies melena or hematochezia. Has been taking ibuprofen. Does drink alcohol on and off small amounts, sometimes daily. Denies known history of sleep apnea. In ER found in acute respiratory failure with hypoxia and hypercapnia, respiratory acidosis, started on BiPAP support. Chest x-ray with decreased inspiratory lung volume with accentuation of pulmonary vascularity with possible component of pulmonary vascular congestion. Mild opacity right lung base at the diaphragm possibly mild infiltrate or atelectasis. Possible associated trace effusion right costophrenic angle. His also reports he has been having hyperglycemia 150-175 recently without history of diabetes. Hospital Course Hospital Course Patient was admitted to the hospital for evaluation and management of hypoxic respiratory failure with hypercapnia in setting of COPD exacerbation. He was started on treatment with nebulization, IV Solu-Medrol. There was concern for community-acquired pneumonia on admission for which she started on broad- spectrum antibiotics though pneumonia was later ruled out with negative chest imaging. It is believed his respiratory failure is most likely in setting of undiagnosed COPD. Patient was counseled in detail about tobacco cessation. Echocardiogram was done which showed a normal EF with concerns of grade 1 diastolic dysfunction. During hospitalization he was also found to be diabetic with A1c Of 6.7. He has been discharged hemodynamically stable condition with advised to follow- up with his PCP within next 1 week on inhalation treatment with Advair and Spiriva. Home O2 evaluation has been done prior to discharge. He will be taking Farxiga which is going to help him with his diabetes and diastolic dysfunction. He is also started on Cardizem 120 mg oral daily for concerns for sinus tachycardia. Physical Exam Narrative: Accompanied by his . Const: COMMON NORMALS: patient oriented x3 and alert GENERAL APPEARANCE: cooperative NUTRITIONAL APPEARANCE: obese ORIENTATION/CONSCIOUSNESS: Yes awake HENMT: COMMON NORMALS: oropharynx normal OTHER: NC Neck/C-Spine: COMMON NORMALS: no JVD Resp: COMMON NORMALS: normal respiratory effort AUSCULTATION: diminished lung sounds OTHER: Improving air entry. Cardio: COMMON NORMALS: no JVD, regular rhythm, S1 normal heart sound present, S2 normal heart sound present and No murmurs present (Cardio) RHYTHM: regular rhythm HEART SOUNDS: S1 normal heart sound present and S2 normal heart sound present GI: COMMON NORMALS: Normal to inspection, nondistended, normoactive bowel sounds present, Soft to palpation and non-tender PALPATION: Yes Soft to palpation Extremity: COMMON NORMALS: no joint enlargement GENERAL: No edema Neuro: COMMON NORMALS: patient oriented x3 and moves all extremities SENSORIUM/ORIENTATION: Yes alert Skin: COMMON NORMALS: no rashes or lesions noted GENERAL SKIN EXAM: no rashes or lesions noted Discharge Data Studies Completed and Pending Completed Studies During Hospitalization Category Date Time Status CT chest wo con [id number] Routine Cat Scan 11/05/24 13:43 Completed XR chest 1V portable [id number] Routine Exams 11/05/24 08:00 Completed XR chest 1V portable [id number] Stat Exams 11/01/24 12:50 Completed CV. echo complete* [id number] Routine Ultrasound 11/05/24 13:38 Completed CV. echo limited [id number] Routine Ultrasound 11/01/24 00:00 Completed Pending at discharge Category Date Time Status MAG [Magnesium] AM LABS Lab 11/08/24 04:00 Ordered Respiratory Panel 2 Routine Lab 11/01/24 17:00 Uncollected Sputum Culture and Gram Stain Stat Lab 11/01/24 14:37 Uncollected Radiology Impressions Chest X-Ray 11/05/24 08:00 IMPRESSION: 1. Decreased inspiratory effort. 2. Very minimal atelectasis at the RIGHT lung base with improvement since 11/01/2024. Chest CT 11/05/24 13:43 IMPRESSION: 1. No pneumonia. Decreased lung volumes from poor inspiration. 2. Normal size heart. 3. Increased air and fecal material of the transverse colon. Consider ileus pattern. Laboratory Results WBC 13.08 10^3/uL (3.29-11.43) H 11/07/24 05:56 RBC 6.36 10^6/uL (3.85-5.65) H 11/07/24 05:56 Hgb 17.50 g/dL (11.27-16.99) H 11/07/24 05:56 Hct 56.2 % (37-53) H 11/07/24 05:56 MCV 88.4 fl (82-101) 11/07/24 05:56 MCH 27.5 pg (27-33) 11/07/24 05:56 MCHC 31.1 g/dL (30-55) 11/07/24 05:56 RDW 14.7 % (12.1-15.1) 11/07/24 05:56 Plt Count 348 10^3/cmm (157-399) 11/07/24 05:56 MPV 9.4 fL (7.4-10.4) 11/07/24 05:56 Neut % (Auto) 84.2 % 11/07/24 05:56 Lymph % (Auto) 6.4 % 11/07/24 05:56 Rolette % (Auto) 8.7 % 11/07/24 05:56 Eos % (Auto) 0.0 % 11/07/24 05:56 Baso % (Auto) 0.2 % 11/07/24 05:56 Neut # (Auto) 11.01 10^3/uL (1.8-7.7) H 11/07/24 05:56 Lymph # (Auto) 0.8 10^3/uL (0.8-4.8) 11/07/24 05:56 Rolette # (Auto) 1.1 10^3/uL (0.2-0.9) H 11/07/24 05:56 Eos # (Auto) 0.0 10^3/uL (0.0-0.8) 11/07/24 05:56 Baso # (Auto) 0.0 10^3/uL (0.0-0.1) 11/07/24 05:56 Nucleated RBC % (auto) 0 % 11/07/24 05:56 Nucleated RBCs # 0.0 /100WBC 11/07/24 05:56 D-Dimer 0.62 ug/mLFEU (0-0.59) H 11/05/24 16:26 Specimen Type Arterial 11/01/24 13:31 Sample Site Radial, right 11/01/24 13:31 ABG pH 7.30 (7.35-7.45) L 11/01/24 13:31 ABG pCO2 84.9 mmHg (35-45) H* 11/01/24 13:31 ABG pO2 50.8 mmHg (80.0-100.0) L 11/01/24 13:31 ABG PO2/FiO2 Ratio 127 11/01/24 13:31 ABG HCO3 42.0 mmol/L (22-26) H 11/01/24 13:31 ABG O2 Saturation 85.5 11/01/24 13:31 ABG Base Excess 11.2 mmol/L (-2.0-2.0) H 11/01/24 13:31 Kayden Test Pos 11/01/24 13:31 A-a O2 Gradient 17.7 mmHg (5-10) H 11/01/24 13:31 Hematocrit 47.7 % (42-52) 11/01/24 13:31 Hgb O2 Saturation 83.4 % (95-100) L 11/01/24 13:31 Carboxyhemoglobin 1.5 %THgb (0.4-20.1) 11/01/24 13:31 Methemoglobin 1.0 % (0.4-1.5) 11/01/24 13:31 Total Hemoglobin 15.6 g/dL (14-18) 11/01/24 13:31 Sodium 137.0 mmol/L (131-143) 11/01/24 13:31 Potassium 4.0 mmol/L (3.5-5.0) 11/01/24 13:31 Glucose 118.0 mg/dL (70-115) H 11/01/24 13:31 Ionized Calcium 1.2 mmol/L (1.1-1.4) 11/01/24 13:31 O2 Delivery Device Bipap 11/01/24 13:31 O2 Liters/Min 6.0 % 11/01/24 12:36 FiO2 40.0 % 11/01/24 13:31 Tool Grinding Machine Operator ID [id number] 11/01/24 13:31 Sodium 139 mmol/L (136-145) 11/06/24 05:44 Potassium 4.7 mmol/L (3.5-5.1) 11/06/24 05:44 Chloride 92 mmol/L (98-107) L 11/06/24 05:44 Carbon Dioxide 39 mmol/L (22-29) H 11/06/24 05:44 Anion Gap 12.7 (5-19) 11/06/24 05:44 BUN 39 mg/dL (8-23) H 11/06/24 05:44 Creatinine 1.0 mg/dL (0.7-1.2) 11/06/24 05:44 GFR Calculation 73.9 mL/min (90-130) L 11/06/24 05:44 Glucose 159 mg/dL (65-115) H 11/06/24 05:44 POC Glucose 163 mg/dL (70-110) H 11/07/24 06:42 Estimat Average Glucose 146 11/01/24 13:41 Hemoglobin A1c 6.7 % (4.0-6.0) H 11/01/24 13:41 Calculated Osmolality 301 mOsm/kg (285-295) H 11/06/24 05:44 Lactic Acid 0.9 mmol/L (0.5-2.2) 11/01/24 13:41 Calcium 9.3 mg/dL (8.5-10.5) 11/06/24 05:44 Magnesium 2.2 mg/dL (1.7-2.3) 11/07/24 05:56 Iron 142 ug/dL (59-158) 11/05/24 03:40 TIBC 346 mcg/dl 11/05/24 03:40 % Saturation 41.0 % (20-50) 11/05/24 03:40 Unsat Iron Binding 204 ug/dL (112-347) 11/05/24 03:40 Total Bilirubin 0.8 mg/dL (0.15-1.2) 11/06/24 05:44 AST 26 U/L (0-40) 11/06/24 05:44 ALT 52 U/L (0-41) H 11/06/24 05:44 Alkaline Phosphatase 96 U/L (40-130) 11/06/24 05:44 Troponin T Baseline 12 ng/L (0-15) 11/01/24 13:41 Troponin T 120 Minute 11.16 ng/L (0-15) 11/01/24 16:53 Delta Troponin T -0.84 ABS# (0-10) L 11/01/24 16:53 Troponin T Hi Sens 6Hr 12.32 ng/L (0-15) 11/01/24 19:45 Troponin T Hi Sens 6Hr Delta 0.32 ng/L (0-12) 11/01/24 19:45 NT-Pro-B Natriuret Pep 47 pg/mL (0-125) 11/01/24 13:41 Total Protein 7.3 g/dL (6.6-8.7) 11/06/24 05:44 Albumin 3.8 g/dL (3.5-5.2) 11/06/24 05:44 Globulin 3.5 g/dL (1.3-4.6) 11/06/24 05:44 Triglycerides 130 mg/dL (0-150) 11/06/24 05:44 Cholesterol 238 mg/dL (0-200) H 11/06/24 05:44 LDL Cholesterol, Calc 170 mg/dL (50-129) H 11/06/24 05:44 Total VLDL Cholesterol 26 mg/dL (0-30) 11/06/24 05:44 HDL Cholesterol 42 mg/dL (60-100) L 11/06/24 05:44 Cholesterol/HDL Ratio 5.67 mg/dL (1.0-5.00) H 11/06/24 05:44 Vitamin B12 325 pg/mL (232-1245) 11/05/24 03:40 Folate 13.1 ng/mL (4.5-32.2) 11/06/24 05:44 Procalcitonin 0.07 ng/mL (0-0.5) 11/05/24 03:40 TSH 1.12 uIU/mL (0.27-4.20) 11/05/24 03:40 Urine Color Yellow (Yellow) 11/01/24 22:37 Urine Appearance Clear (CLEAR) 11/01/24 22:37 Urine pH 7.0 (5-7) 11/01/24 22:37 Ur Specific [place] 1.017 (1.005-1.030) 11/01/24 22:37 Urine Protein Negative (Negative) 11/01/24 22:37 Urine Glucose (UA) Negative (Normal) 11/01/24 22:37 Urine Ketones 1+ (Negative) H 11/01/24 22:37 Urine Blood 1+ (Negative) A 11/01/24 22:37 Urine Nitrate Negative (Negative) 11/01/24 22:37 Urine Bilirubin Negative (Negative) 11/01/24 22: Urine Urobilinogen 1.0 mg/dL (Negative) 11/01/24 22:37 Ur Leukocyte Esterase Negative (Negative) 11/01/24 22:37 Urine RBC 11-20 /hpf (0-2) H 11/01/24 22:37 Urine WBC 0-5 /hpf (0-5) 11/01/24 22:37 Ur Squamous Epith Cells 0-5 /hpf (0-5) 11/01/24 22:37 Amorphous Sediment Not Reportable 11/01/24 22:37 Urine Bacteria None seen /hpf (NONE) 11/01/24 22:37 Hyaline Casts 0-4 /lpf H 11/01/24 22:37 Nasal MRSA (PCR) Not detected (Negative) 11/01/24 21:50 Adenovirus (PCR) Not detected (NOT DETECT) 11/04/24 10:55 C. pneumoniae DNA (PCR) Not detected (NOT DETECT) 11/04/24 10:55 Coronavirus (PCR) Negative (Negative) 11/01/24 14:23 Coronavirus 229E (PCR) Not detected (NOT DETECT) 11/04/24 10:55 Human Metapneumovir PCR Not detected (NOT DETECT) 11/04/24 10:55 Influenza A (H1) PCR Not detected (NOT DETECT) 11/04/24 10:55 Influenza A (PCR) Negative (Negative) 11/01/24 14:23 Influ A (H1/09) PCR Not detected (NOT DETECT) 11/04/24 10:55 Influenza A (H3) PCR Not detected (NOT DETECT) 11/04/24 10:55 Influenza Type A (PCR) Not detected (NOT DETECT) 11/04/24 10:55 Influenza Type B (PCR) Not detected (NOT DETECT) 11/04/24 10:55 M. pneumoniae (PCR) Not detected (NOT DETECT) 11/04/24 10:55 Parainfluenza 1 (PCR) Not detected (NOT DETECT) 11/04/24 10:55 Parainfluenza 2 (PCR) Not detected (NOT DETECT) 11/04/24 10:55 Parainfluenza 3 (PCR) Not detected (NOT DETECT) 11/04/24 10:55 Parainfluenza 4 (PCR) Not detected (NOT DETECT) 11/04/24 10:55 RSV (PCR) Negative (Negative) 11/01/24 14:23 RSV Type A (PCR) Not detected (NOT DETECT) 11/04/24 10:55 RSV Type B (PCR) Not detected (NOT DETECT) 11/04/24 10:55 Entero/Rhino (PCR) Not detected (NOT DETECT) 11/04/24 10:55 SARS-CoV-2 (PCR) Not detected (NOT DETECT) 11/04/24 10:55 Vitals Last Vital Signs Temp 98.0 F 11/07/24 07:40 Pulse 102 H 11/07/24 09:02 Resp 18 11/07/24 09:02 BP 130/83 11/07/24 07:40 Pulse Ox 85 L 11/07/24 09:03 O2 Del Method Nasal Cannula 11/07/24 09:02 O2 Flow Rate 4 11/07/24 09:03 FiO2 45 11/02/24 05:38 Discharge Plan Discharge Patient Disposition: Home Condition: Stable Prescriptions: New fluticasone propion-salmeterol [Advair Diskus] 100-50 mcg/dose blister with device 1 inh inhalation BID Qty: 60 0RF tiotropium bromide [Spiriva with HandiHaler] 18 mcg capsule, w/inhalation device 1 cap inhalation DAILY Qty: 60 0RF Rx Instructions: puncture 1 cap using device; one dose = 2 inhalations diltiazem HCl [Cartia XT] 120 mg capsule,extended release 24hr 120 mg PO DAILY Qty: 30 0RF dapagliflozin propanediol [Farxiga] 10 mg tablet 10 mg PO DAILY Qty: 30 0RF Continued (DME) oxygen-air delivery systems Device See Rx Instructions .ROUTE Rx Instructions: As directed (DME) Nebulizer w/ tubing and supplies See Rx Instructions .Route .MEDSUPPLY Qty: 1 1RF Rx Instructions: As directed (DME) portable oxygen tank w/nasel canula and tubing See Rx Instructions .Route .MEDSUPPLY Qty: 1 5RF Rx Instructions: As directed acetaminophen 325 mg Tablet 650 mg PO Q6H PRN (Reason: Mild/Mod Pain Or Temp >/= 101) Qty: 30 3RF albuterol sulfate 90 mcg/actuation HFA aerosol inhaler 2 inh inhalation Q4H PRN (Reason: shortness of breath or wheezing) Qty: 8.5 0RF Discharge Orders: Discharge Order (Routine); Ordered 11/07/24 Ordered By: Juan F Molina Other Ambulatory Orders: DME: Oxygen (Order) Location: None Selected Ordered By: Juan F Molina Referrals: [facility] [Other] Wellington Savage MD [Primary Care Provider] - 11/14/24 10:45 am (Check in at 10:30am.) Discharge Diet: Cardiac Discharge Activity: Resume usual activity and Increase activity as tolerated Patient Instructions: Diltiazem (By mouth), Fluticasone/Salmeterol (By breathin g), Tiotropium (By breathing), Using Oxygen at Home (GEN), Opioid Safety Discharge Attestations Time Spent in Discharge Care*: greater than 30 min Quality Metrics Clinical Quality Measures [ No reported AMI, CVA or VTE this stay] Coding Level of Care Code 32383 Total time (in minutes) for Discharge: 60 Diagnoses Acute respiratory failure with hypoxia and hypercapnia J96.01; J96.02 Pneumonia J18.9 COPD (chronic obstructive pulmonary disease) J44.9 Nausea and vomiting R11.2 Smoking addiction F17.200 Alcohol use F10.90 Hyperglycemia R73.9
--- NOTE | 2024-11-07 10:53 | PC.SOCIAL ---
IMM updated Updated pt on IMM. No questions voiced. Provided pt a copy. Initialed, dated, & timed copy in chart.
[2024-11-07 10:56] LABS: Glucose Point of Care 167 mg/dL (70-110)
== END 2024-11-07 15:08 | disposition critical access hospital (66) | DRG 190 ==
LOC: ER 14:32 → ICU 15:00 → MEDSURG 11-02 21:10
PROVIDERS: Admitting Provider Internal Medicine; Emergency Provider Family Medicine; PCP Family Medicine Adult Medicine; Visit Provider Student in an Organized Health Care Education/Training Program
DX: J44.1 Chronic obstructive pulmonary disease with (acute) exacerbation (principal); J96.01 Acute respiratory failure with hypoxia; J96.02 Acute respiratory failure with hypercapnia; F17.210 Nicotine dependence, cigarettes, uncomplicated; F10.10 Alcohol abuse, uncomplicated; E11.22 Type 2 diabetes mellitus with diabetic chronic kidney disease; E11.65 Type 2 diabetes mellitus with hyperglycemia; E11.42 Type 2 diabetes mellitus with diabetic polyneuropathy; Z87.01 Personal history of pneumonia (recurrent); H00.014 Hordeolum externum left upper eyelid; G47.00 Insomnia, unspecified; M21.962 Unspecified acquired deformity of left lower leg; M21.961 Unspecified acquired deformity of right lower leg; M24.411 Recurrent dislocation, right shoulder; G89.29 Other chronic pain; R00.0 Tachycardia, unspecified; M19.90 Unspecified osteoarthritis, unspecified site
CPT/HCPCS: 36415; 36416; 36600; 71045; 71250; 80048; 80051; 80053; 80061; 81001; 82330; 82607; 82746; 82805; 82962; 83036; 83540; 83550; 83605; 83735; 83880; 84145; 84443; 84484; 85025; 85378; 87040; 87486; 87581; 87633; 87637; 93005; 93010; 93306; 93308; 94640; 94660; 94664; 94760; 96372; 96376; 97116; 97161; 99223; 99291; J1650; J1815; J1940; J2405; J2470; J2543; J2919; J3411; J7614; J7626; J7644